=== PATIENT | male | born 1935 | race Caucasian/White ===

== ENCOUNTER 2018-03-17 08:57 | Emergency (ER) | payer MEDICARE, OTHER, SELFPAY ==
[2018-03-17 08:57] VITALS: BP 177/84; PULSE 79; RESP 15; TEMP 35.8; O2SAT 97; BMI 32.1
--- NOTE | 2018-03-17 09:12 | ED.VISSUMM ---
- ER Visit Summary Date of Service: 03/17/18 Chief Complaint: Vague generalized abdominal pain for 24 hours and bright red blood on toilet paper this morning History of Present Illness: The patient is a 82 M who presents from home because of bright red blood on toilet paper. His stool is brown in color. He does give history of hemorrhoids. He states he has never had a colonoscopy. He denies any change in color, caliber, consistency or frequency of his bowel movements. He denies fever, chills night sweats or weight loss. He does complain of vague central generalized abdominal discomfort with no exacerbating, precipitating or alleviating factors. He is status post cholecystectomy. He denies dysuria, frequency, urgency or hematuria. He denies any trauma. He denies any cardiac or respiratory symptoms. He does report bruising easily. He is on no anticoagulant. He states he takes one baby aspirin a day. Please read written note for complete detail. Physical Examination: Vital signs are remarkable for blood pressure 177/84. Temperature is 96.4. Vital signs otherwise are unremarkable. BMI is 32.2. Head is atraumatic normocephalic. Pupils are equal round reactive. Extraocular muscles are intact. TMs are pearly white with landmarks noted. Nares patent with no drainage. Posterior pharynx without erythema or exudate. Uvula is midline. There is no dysphonia or dysphasia. Trachea is midline. There is no stridor with auscultation of the neck. Heart is regular without murmur, gallop or rub. S1 and S2 are normal. Lungs are clear to auscultation with good movement of air bilaterally. Abdomen is remarkable for a diastases of the rectus muscle. Bruises are noted. There is no evidence of inguinal hernia. There is no CVA tenderness. He does complain of abdominal tenderness. There is no guarding or rebound tenderness. Bowel sounds are present and normal. There is no CVA tenderness noted. Neuro exam is nonfocal. Test Results: CBC is unremarkable. BMP is marked for glucose of 115 creatinine 1.34. Creatinine on April 11, 2017 was 1.15. There has been mild elevations of glucose in the past. With a glucose of greater than 140 this may represent new onset diabetes. Emergency Department Course and Treatment: Since he is elderly CBC and BMP were obtained to evaluate his vague abdominal discomfort. The bright red blood is secondary to external hemorrhoids that were noted on digital exam. 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 Prostate was palpable and nontender and slightly enlarged. Treatment Plan: With his primary care physician Dr. KIMBERLYN Palacios for repeat blood work to assess blood sugar and creatinine. He was given appropriate home-going instructions regarding hemorrhoidal bleeding. Disposition: Discharged to home Impression: 1. Bright red blood per rectum secondary to hemorrhoids 2. Abdominal pain of unknown etiology 3. New onset renal insufficiency 4. Hyperglycemia in nondiabetic This note was generated with [employer] dictation software. It may contain incorrect words, spelling, and punctuation that were not noted in review of the chart prior to signing ED Disposition - Plan for ED Patient: Disposition: Home or Assisted Living Chief Complaint: Abd Pain Instructions: ED Abdominal Pain Unkn Cause Male, ED Hemorrhoids, ED Hyperglycemia New Susp Diabetes, ED Insufficiency Renal Referrals: Power Palacios MD [Primary Care Provider] - 5-7 Days Additional Instructions: You will need to make an appointment with Dr. KIMBERLYN Palacios for repeat blood work to assess your blood sugar and kidney function.
[2018-03-17 09:41] LABS: Anion Gap 6 (5-15); BUN 16 mg/dL (7-18); BUN/Creat Ratio 11.9 RATIO (10-20); Calcium,Total 8.8 mg/dL (8.5-10.1); Chloride 108 mmol/L (98-107); Creatinine, Serum 1.34 mg/dL (0.70-1.30); EST Glomerular Filtration Rate 54 mL/min (>60); Est Glom Filt Rate - Afr Amer 66 mL/min (>60); Estimated Creatinine Clearance 43.23 ml/min; Glucose 150 mg/dL (74-106); Potassium 4.2 mmol/L (3.5-5.1); Sodium Level 141 mmol/L (136-145)
[2018-03-17 09:44] LABS: Absolute Lymphocyte Count 1.99 X10^3/ul (0.83-4.51); Basophil# 0.01 X10^3/uL; Basophil% 0.1 % (0-1); Eosinophil# 0.03 X10^3/uL; Eosinophils% 0.4 % (0-5); Hematocrit 47.4 % (40-54); Hemoglobin 15.4 g/dl (13.0-16.5); Lymphocyte # 1.99 X10^3/ul (4.0); Lymphocyte % 29.7 % (19-41); Mean Corp Hgb Conc 32.5 g/gl (32-36); Mean Corpuscular Hgb 29.3 pg (27.0-32.0); Mean Corpuscular Volume 90.3 fL (80-94); Mean Platelet Vol. 10.6 fl (6.2-12.0); Monocyte# 1.67 X10^3/uL; Monocyte% 24.9 % (0-10); Neutrophil # 2.95 X10^3/uL (2.7-7.7); Neutrophil % 44.2 % (47-70); Platelet Count 147 K/mm3 (150-450); RBC Distribution Width CV 13.3 % (11.6-14.6); RBC Distribution Width SD 43.3 fl (35.1-43.9); Red Blood Count 5.25 M/mm3 (4.6-6.2); White Blood Count 6.7 K/mm3 (4.4-11.0)
[2018-03-17 09:45] LABS: Differential Indicated SCAN CRITERIA MET; POSITIVE COUNT NO; POSITIVE DIFFERENTIAL YES; POSITIVE MORPHOLOGY NO
[2018-03-17 10:17] VITALS: BP 140/74; PULSE 71; RESP 16; O2SAT 98
== END 2018-03-17 10:18 | disposition home or self-care (01) ==
PROVIDERS: Emergency Provider Emergency Medicine; Family Provider Family Medicine; PCP Family Medicine
DX: K62.5 Hemorrhage of anus and rectum (principal); K64.4 Residual hemorrhoidal skin tags; R10.84 Generalized abdominal pain; N28.9 Disorder of kidney and ureter, unspecified; R73.9 Hyperglycemia, unspecified; E66.9 Obesity, unspecified; Z68.32 Body mass index [BMI] 32.0-32.9, adult; I10 Essential (primary) hypertension; N40.0 Benign prostatic hyperplasia without lower urinary tract symptoms; Z90.49 Acquired absence of other specified parts of digestive tract; Z79.82 Long term (current) use of aspirin; Z79.899 Other long term (current) drug therapy
CPT/HCPCS: 80048; 85025; 99282; A4216

== ENCOUNTER → 2018-04-11 08:05 | Outpatient (CLI) | payer MEDICARE, OTHER, SELFPAY ==
--- NOTE | 2018-04-11 08:05 | DT_ITS ---
This patient was seen during an EMR downtime April 10, 2018 - April 17, 2018. This patient may have a combination of paper and electronic documentation or all paper documentation. All documentation is viewable within the e-chart portion of [facility] for each patient visit.
[2018-04-16 08:36] LABS: BUN 16 mg/dL (7-18); BUN/Creat Ratio 13.4 RATIO (10-20); Calcium,Total 8.6 mg/dL (8.5-10.1); Cholesterol 109 mg/dL (200); Creatinine, Serum 1.19 mg/dL (0.70-1.30); EST Glomerular Filtration Rate 62 mL/min (>60); Est Glom Filt Rate - Afr Amer 75 mL/min (>60); Glucose 122 mg/dL (74-106); Hemoglobin A1c 7.2 % (4.2-6.3); Sodium Level 136 mmol/L (136-145); Triglycerides 74 mg/dL; Very Low Density Lipoprotein 15 mg/dL (5-40)
[2018-04-16 08:37] LABS: Anion Gap 4 (5-15); Chloride 105 mmol/L (98-107); High Density Lipoprotein 30 mg/dL; Potassium 4.5 mmol/L (3.5-5.1)
== END ==
LOC: MTLAB 04-15 08:22 → MFPLAB 04-15 16:54
PROVIDERS: Family Provider Family Medicine; PCP Family Medicine; Visit Provider Family Medicine
DX: E11.9 Type 2 diabetes mellitus without complications (principal); I10 Essential (primary) hypertension; R97.20 Elevated prostate specific antigen [PSA]
CPT/HCPCS: 36415; 80048; 80061; 83036; 84153

== ENCOUNTER → 2018-04-13 11:35 | Outpatient (CLI) | payer MEDICARE, OTHER, SELFPAY ==
--- NOTE | 2018-04-13 11:35 | DT_ITS ---
This patient was seen during an EMR downtime April 10, 2018 - April 17, 2018. This patient may have a combination of paper and electronic documentation or all paper documentation. All documentation is viewable within the e-chart portion of [facility] for each patient visit.
== END ==
PROVIDERS: Family Provider Family Medicine; PCP Family Medicine; Visit Provider Family Medicine
DX: R97.20 Elevated prostate specific antigen [PSA] (principal)
CPT/HCPCS: 36415; 84153

== ENCOUNTER → 2018-09-11 15:36 | Outpatient (CLI) | payer MEDICARE, OTHER, SELFPAY ==
--- NOTE | 2018-09-11 15:40 | CT_ITS ---
STUDY: CT ABDOMEN AND PELVIS WITH CONTRAST REASON FOR EXAM: Male, 83 years old. Abdominal pain. Left lower quadrant pain. RADIATION DOSAGE (If Supplied By Facility): CTDIvol = ( 19.99 ) mGy, DLP = ( 1308.73 ) mGycm TECHNIQUE: Transaxial images were obtained from the dome of the diaphragm to the symphysis pubis with oral contrast. 100 ml of Isovue 300 contrast was administered. Sagittal and coronal images were reconstructed. Individualized dose optimization techniques were used for this CT. COMPARISON: August 06, 2016. FINDINGS: The visualized lung bases are unremarkable. The visualized portions of the heart are within normal limits. Normal liver. Gallbladder is not visualized and thought absent. Normal spleen. Normal pancreas. Normal bilateral adrenal glands. Normal right kidney. Normal left kidney. Normal visualized ureters. There is a type I hiatal hernia. The distal stomach is unremarkable. Normal small intestine. There is scattered colonic diverticuli without acute inflammatory change. The appendix is visualized and appears normal. There is diffuse atherosclerotic calcification of the abdominal aorta, without a demonstrated aneurysm. Normal inferior vena cava. Normal retroperitoneum. The urinary bladder is well distended. There are 2 bladder calculi measuring centimeters and 0.6 cm, respectively. The prostate is enlarged and invaginates into the bladder floor. The prostate is heterogenous containing calcifications as well as cystic areas. No pelvic lymphadenopathy. No free air or free fluid is seen within the peritoneal cavity. There is a small umbilical hernia containing fat. Normal osseous structures. CT/Abdomen/Pelvis WITH Contrast IMPRESSION: 1. Interval cholecystectomy. 2. Stable hiatal hernia. 3. Diverticuli without acute inflammatory change. 4. Markedly enlarged prostate. 5. There are now 2 bladder calculi when compared to prior study. 6. No other interval change. Electronically Signed: Felice Zaragoza DO at 23:30 EST Tel [phone], Service support ,
[2018-09-11 16:11] LABS: CREATININE FINGERSTICK 1.1 mg/dL (0.70-1.30)
== END ==
PROVIDERS: Family Provider Family Medicine; PCP Family Medicine; Referring Provider Family Medicine; Visit Provider Family Medicine
DX: R10.32 Left lower quadrant pain (principal)
CPT/HCPCS: 74177; Q9967

== ENCOUNTER → 2018-11-09 08:17 | Outpatient (CLI) | payer MEDICARE, OTHER, SELFPAY ==
[2018-11-09 10:19] LABS: Absolute Lymphocyte Count 2.16 X10^3/ul (0.83-4.51); Absolute Neutrophil Count 2.8 X10^3/uL (2.0-7.7); Basophil# 0.01 X10^3/uL; Basophil% 0.2 % (0-1); Eosinophil# 0.02 X10^3/uL; Eosinophils% 0.3 % (0-5); Hematocrit 47.2 % (40-54); Hemoglobin 15.6 g/dl (13.0-16.5); Lymphocyte # 2.16 X10^3/ul (4.0); Lymphocyte % 32.8 % (19-41); Mean Corp Hgb Conc 33.1 g/gl (32-36); Mean Corpuscular Hgb 30.2 pg (27.0-32.0); Mean Corpuscular Volume 91.3 fL (80-94); Mean Platelet Vol. 11.2 fl (6.2-12.0); Monocyte% 21.2 % (0-10); Neutrophil # 2.83 X10^3/uL (2.7-7.7); Neutrophil % 42.9 % (47-70); Platelet Count 154 K/mm3 (150-450); Red Blood Count 5.17 M/mm3 (4.6-6.2); White Blood Count 6.6 K/mm3 (4.4-11.0)
[2018-11-09 10:33] LABS: Anion Gap 8 (5-15); BUN 14 mg/dL (7-18); BUN/Creat Ratio 13.3 RATIO (10-20); Calcium,Total 8.3 mg/dL (8.5-10.1); Chloride 109 mmol/L (98-107); Creatinine, Serum 1.05 mg/dL (0.70-1.30); EST Glomerular Filtration Rate 72 mL/min (>60); Est Glom Filt Rate - Afr Amer 87 mL/min (>60); Glucose 152 mg/dL (74-106); PSA,Total- Diagnostic 5.67 ng/mL (0.0-4.0); Potassium 4.5 mmol/L (3.5-5.1); Sodium Level 143 mmol/L (136-145)
[2018-11-09 10:42] LABS: Hemoglobin A1c 6.9 % (4.2-6.3)
[2018-11-09 10:47] LABS: Differential Indicated SCAN CRITERIA MET; POSITIVE COUNT YES; POSITIVE DIFFERENTIAL NO; POSITIVE MORPHOLOGY YES; Reactive Lymphocyte 1+
[2018-11-10 13:45] LABS: Pathologist Review Reviewed
== END ==
PROVIDERS: Family Provider Family Medicine; PCP Family Medicine; Visit Provider Family Medicine
DX: I10 Essential (primary) hypertension (principal); E11.9 Type 2 diabetes mellitus without complications; R51 Headache; R97.20 Elevated prostate specific antigen [PSA]
CPT/HCPCS: 36415; 80048; 83036; 84153; 85025

== ENCOUNTER 2018-11-22 13:17 | Emergency (ER) | payer MEDICARE, OTHER, SELFPAY ==
[2018-11-22 13:18] VITALS: BP 167/81; PULSE 82; RESP 16; TEMP 36.6; O2SAT 97; BMI 32.8
--- NOTE | 2018-11-22 14:05 | ED.VISSUMM ---
- ER Visit Summary Date of Service: 11/22/18 Chief Complaint: Head injury History of Present Illness: The patient is a 83 M who presents with head injury that occurred this morning. Patient states he slipped and fell while getting out of his truck. Patient hit his head on the running board. Patient denies any loss of consciousness. Patient denies any paresthesias or weakness. Patient states he did feel little lightheaded after the fall. Patient denies any nausea or vomiting. Patient denies any visual changes. Patient takes one baby aspirin per day. Patient is not on any other blood thinners. Physical Examination: Vital signs are stable. Patient is afebrile. Patient is in no acute distress. Oral mucosa is pink and moist. Neck is supple. Trachea is midline. There is no JVD noted. Heart was regular rate and rhythm. Lungs are clear and equal bilateral. Abdomen is soft. Bowel sounds are normal. There is no tenderness. There is no guarding noted. Skin is warm dry. Cranial nerves II through XII are intact. There are no focal motor or sensory deficits noted. Deep tendon reflexes are 2+/4 bilaterally. The remaining physical exam is within normal limits. Emergency Department Course and Treatment: Since the patient has normal neurologic exam, I do not feel patient needs a CT scan of the brain at this time. Patient was given head injury instructions. Patient was instructed to follow-up with his primary care physician in 5-7 days. Patient understood and was agreeable with the plan. All questions were answered. Disposition: Discharge home Impression: Closed head injury This note was generated with [employer] dictation software. It may contain incorrect words, spelling, and punctuation that were not noted in review of the chart prior to signing ED Disposition - Plan for ED Patient: Disposition: Home or Assisted Living Chief Complaint: Head Injury Diagnosis: Head injury due to trauma Instructions: ED Head Injury Closed Referrals: Power Palacios MD [Primary Care Provider] -
[2018-11-22 14:26] VITALS: RESP 18
--- OUTSIDE RECORDS SUMMARY | 2019-01-27 13:32 | XMS RPT_ITS ---
:1935 Author Organization OHIP Care Team Providers Name Role Phone Power Palacios Attending Unavailable Power Palacios Primary Care Unavailable Philip, Power Primary Care Unavailable Wojciech Grimaldo Attending Unavailable Philip, Power Primary Care Unavailable Claudy Schmidt Attending Unavailable Power Palacios Attending Unavailable Power Palacios Primary Care Unavailable Power Palacios Attending Unavailable Power Palacios Primary Care Unavailable Jory June Attending Unavailable Shaylee, Jory Referring Unavailable Power Palacios Primary Care Unavailable PROBLEMS PROBLEMS DATE TYPE CONDITION / CODE ATTENDING STATUS SOURCE 09/11/2018 Unknown R10.32 - Left lower Jory June Active [place] quadrant pain / Community R10.32(ICD-10) Hospital Repository 05/04/2018 Unknown R97.20 - Elevated Power Palacios Active [place] prostate specific Community antigen [PSA] / Hospital R97.20(ICD-10) Repository 05/03/2018 Unknown 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 without Hospital complications / Repository E11.9(ICD-10) 05/03/2018 Unknown I10 - Essential Power Palacios Active [place] (primary) Community hypertension / Hospital I10(ICD-10) Repository 05/03/2018 Unknown 401.1 - Benign Power Palacios essential Community hypertension / Hospital 401.1(ICD-9) Repository 05/03/2018 Unknown 250.00 - Diabetes Power Palacios mellitus without Community mention of Hospital complication, type Repository II or unspecified type, not stated as uncontrolled / 250.00(ICD-9) 05/03/2018 Unknown 790.93 - Elevated Power Palacios prostate specific Community antigen [PSA] / Hospital 790.93(ICD-9) Repository PROCEDURES PROCEDURES No Procedure Records FoundRESULTS RESULTS EMERGENCY DEPARTMENT Observed: 11/22/2018 Status: F Source: [place] SUMMARY 2:21 PM [facility] REPOSITORY [facility] [place] Medical Records Department [address] [place] [address] Emergency Department Summary 11/22/18 1405 MR#: [id number] Acct: [id number] Name: BRAD OCASIO Rep #: [id number] : 1935 83 From: Wojciech Grimaldo DO PCP: Power Palacios MD Status: PRE ER - ER Visit Summary Date of Service: 11/22/18 Chief Complaint: Head injury History of Present Illness: The patient is a 83 M who presents with head injury that occurred this morning. Patient states he slipped and fell while getting out of his truck. Patient hit his head on the running board. Patient denies any loss of consciousness. Patient denies any paresthesias or weakness. Patient states he did feel little lightheaded after the fall. Patient denies any nausea or vomiting. Patient denies any visual changes. Patient takes one baby aspirin per day. Patient is not on any other blood thinners. Physical Examination: Vital signs are stable. Patient is afebrile. Patient is in no acute distress. Oral mucosa is pink and moist. Neck is supple. Trachea is midline. There is no JVD noted. Heart was regular rate and rhythm. Lungs are clear and equal bilateral. Abdomen is soft. Bowel sounds are normal. There is no tenderness. There is no guarding noted. Skin is warm dry. Cranial nerves II through XII are intact. There are no focal motor or sensory deficits noted. Deep tendon reflexes are 2+/4 bilaterally. The remaining physical exam is within normal limits. Emergency Department Course and Treatment: Since the patient has normal neurologic exam, I do not feel patient needs a CT scan of the brain at this time. Patient was given head injury instructions. Patient was instructed to follow-up with his primary care physician in 5-7 days. Patient understood and was agreeable with the plan. All questions were answered. Disposition: Discharge home Impression: Closed head injury This note was generated with Tealet dictation software. It may contain incorrect words, spelling, and punctuation that were not noted in review of the chart prior to signing ED Disposition - Plan for ED Patient: Disposition: Home or Assisted Living Chief Complaint: Head Injury Diagnosis: Head injury due to trauma Instructions: ED Head Injury Closed Referrals: Power Palacios MD [Primary Care Provider] - What to do if you have Problems For any increased pain, shortness of breath, bleeding, nausea or vomiting, chest pain, or any unexpected problems, contact your Primary Care Provider. Call [facility] ([phone]) or report to the closest Emergency Room. Call 911 if necessary. 11/22/18 1421 <Electronically signed by Wojciech Grimaldo DO> Date Wojciech Grimaldo DO Cosigner Signature (If Indicated): Date CC: Power Palacios MD BASIC METABOLIC Collected: 11/09/2018 Status: F Source: [place] PROFILE ([facility]) 8:23 AM [facility] REPOSITORY TYPE CODE TESTS RESULT OUT OF RANGE REFERENCE UNITS LAB L501.0100 74-106 mg/dL High GLU 152 Result Comment: Fasting Glucose result greater than or equal to 126 mg/dL suggests DIABETES MELLITUS per A.D.A. criteria. Please note revised GLUCOSE reference range effective 2017. LAB L501.1000 7-18 mg/dL Normal BUN 14 LAB L501.1100 0.70-1.30 mg/dL Normal CREAT,SERUM 1.05 Result Comment: The validity of the calculated GFR AND GFRAA in patients over 70 years has not been determined. Clinical correlation is essential. LAB L501.1110 >60 mL/min Normal EST GFR 72 Result Comment: Non- GFR Calc LAB L501.1115 >60 mL/min Normal EST GFR - AA 87 Result Comment: GFR Calc LAB L501.1300 10-20 RATIO Normal BUN/CRE 13.3 LAB L501.2200 8.5-10.1 mg/dL Low CA 8.3 LAB L501.5300 136-145 mmol/L NA Normal 143 LAB L501.5600 3.5-5.1 mmol/L K Normal 4.5 LAB L501.5900 98-107 mmol/L High CL 109 LAB L501.6100 21.0-32.0 mmol/L Normal CO2 26.0 LAB L501.6200 5-15 Normal GAP 8 Performed By: #### L500.2500, L501.9940, L501.9985, L100.0100 #### [facility] [address] [place], [address] PSA,TOTAL- DIAGNOSTIC Collected: 11/09/2018 Status: F Source: [place] 8:23 AM [facility] REPOSITORY TYPE CODE TESTS RESULT OUT OF REFERENCE UNITS RANGE LAB L501.9940 0.0-4.0 ng/mL PSA, High DIAGNOSTIC 5.67 Result Comment: This test was performed using the TPSA assay method for the Skipjump chemistry system. Values obtained with different assay methods cannot be used interchangably. When changing PSA assays in the course of monitoring a patient, additional sequential testing should be carried out to confirm baseline values. Performed By: #### L500.2500, L501.9940, L501.9985, L100.0100 #### [facility] [address] [place], [address] HEMOGLOBIN A1C Collected: 11/09/2018 Status: F Source: [place] 8:23 AM [facility] REPOSITORY TYPE CODE TESTS RESULT OUT OF RANGE REFERENCE UNITS LAB L501.9985 4.2-6.3 % High HGB A1C 6.9 Performed By: #### L500.2500, L501.9940, L501.9985, L100.0100 #### [facility] [address] [place], [place], [address] CBC W/DIFF, AUTOMATED Collected: 11/09/2018 Status: C Source: [place] 8:23 AM [facility] REPOSITORY TYPE CODE TESTS RESULT OUT OF RANGE REFERENCE UNITS LAB L100.1000 4.4-11.0 K/mm3 Normal WBC 6.6 LAB L100.1200 4.6-6.2 M/mm3 Normal RBC 5.17 LAB L100.1300 13.0-16.5 g/dl Normal HGB 15.6 LAB L100.1400 40-54 % Normal HCT 47.2 LAB L100.1500 80-94 fL Normal MCV 91.3 LAB L100.1600 27.0-32.0 pg Normal MCH 30.2 LAB L100.1700 32-36 g/gl Normal MCHC 33.1 LAB L100.1810 11.6-14.6 % Normal RDW CV 14.0 LAB L100.1820 35.1-43.9 fl High RDW SD 46.0 LAB L100.1900 150-450 K/mm3 Normal PLT 154 LAB L100.2000 6.2-12.0 fl Normal MPV 11.2 LAB L100.2100 47-70 % Low NEUT% 42.9 LAB L100.2200 19-41 % Normal LY% 32.8 LAB L100.2300 0-10 % High MONO% 21.2 LAB L100.2400 0-5 % Normal EO% 0.3 LAB L100.2500 0-1 % Normal BASO% 0.2 LAB L100.2550 0.0-0.9 % High IM GRAN % 2.600 Result Comment: IG% - Immature Granulocytes (promyelocytes, myelocytes and metamyelocytes) > 1% indicates that a LEFT SHIFT is Present. LAB L100.2620 2.0-7.7 X10 3/uL Normal Absolute Neut 2.8 LAB L100.2720 0.83-4.51 X10 3/ul Normal Absolute Lymph 2.16 LAB L100.4700 1+ Normal REACTIVE LYMPH LAB L100.9900 Normal PATH REV Reviewed Result Comment: AMENDED REPORT 11/10/18 9631 PATH REV previously reported as: May foll Performed By: #### L500.2500, L501.9940, L501.9985, L100.0100 #### [facility] [address] [place], [address] CREATININE FINGERSTICK Collected: 09/11/2018 Status: F Source: [place] 4:01 PM [facility] REPOSITORY TYPE CODE TESTS RESULT OUT OF RANGE REFERENCE UNITS LAB L9100.0210 0.70-1.30 mg/dL Normal CREATININE WB 1.1 Performed By: #### L9100.0200 #### [facility] Point of Care [address] [place] [address] ABDOMEN/PELVIS WITH Observed: 09/11/2018 Status: F Source: [place] CONTRAST 3:40 PM [facility] REPOSITORY [facility] [place] Imaging Services [address] [place] [address] Abdomen/Pelvis WITH Contrast MR#: [id number] Acct: [id number] Name: BRAD OCASIO Rep #: [id number] : 1935 M 83 From: Felice Zaragoza DO PCP: Power Palacios MD Status: REG CLI Study: Abdomen/Pelvis WITH Contrast Date of Exam: 09/11/18 Exam# [id number] Ordering Dr: Jory June MD STUDY: CT ABDOMEN AND PELVIS WITH CONTRAST REASON FOR EXAM: Male, 83 years old. Abdominal pain. Left lower quadrant pain. RADIATION DOSAGE (If Supplied By Facility): CTDIvol = ( 19.99 ) mGy, DLP = ( 1308.73 ) mGycm TECHNIQUE: Transaxial images were obtained from the dome of the diaphragm to the symphysis pubis with oral contrast. 100 ml of Isovue 300 contrast was administered. Sagittal and coronal images were reconstructed. Individualized dose optimization techniques were used for this CT. COMPARISON: August 06, 2016. FINDINGS: The visualized lung bases are unremarkable. The visualized portions of the heart are within normal limits. Normal liver. Gallbladder is not visualized and thought absent. Normal spleen. Normal pancreas. Normal bilateral adrenal glands. Normal right kidney. Normal left kidney. Normal visualized ureters. There is a type I hiatal hernia. The distal stomach is unremarkable. Normal small intestine. There is scattered colonic diverticuli without acute inflammatory change. The appendix is visualized and appears normal. There is diffuse atherosclerotic calcification of the abdominal aorta, without a demonstrated aneurysm. Normal inferior vena cava. Normal retroperitoneum. The urinary bladder is well distended. There are 2 bladder calculi measuring centimeters and 0.6 cm, respectively. The prostate is enlarged and invaginates into the bladder floor. The prostate is heterogenous containing calcifications as well as cystic areas. No pelvic lymphadenopathy. No free air or free fluid is seen within the peritoneal cavity. There is a small umbilical hernia containing fat. Normal osseous structures. CT/Abdomen/Pelvis WITH Contrast IMPRESSION: 1. Interval cholecystectomy. 2. Stable hiatal hernia. 3. Diverticuli without acute inflammatory change. 4. Markedly enlarged prostate. 5. There are now 2 bladder calculi when compared to prior study. 6. No other interval change. Electronically Signed: Felice Zaragoza DO at 23:30 EST Tel [phone], Service support , CC: Jory June MD; Power Palacios MD Director Of Education And Training: Signed DOWNTIME REPORT Observed: 04/27/2018 Status: F Source: [place] 1:50 PM [facility] REPOSITORY [facility] [place] Medical Records Department [address] [place] [address] Downtime Report MR#: [id number] Acct: [id number] Name: BRAD OCASIO Rep #: [id number] : 1935 82 From: Tj Palacios PCP: Power Palacios MD Status: REG CLI This patient was seen during an EMR downtime April 10, 2018 - April 17, 2018. This patient may have a combination of paper and electronic documentation or all paper documentation. All documentation is viewable within the e-chart portion of [email or web address] for each patient visit. DOWNTIME REPORT Observed: 04/27/2018 Status: F Source: [place] 1:35 PM [facility] Medical Records Department [address] [place] [address] Downtime Report MR#: [id number] Acct: [id number] Name: BRAD OCASIO Rep #: [id number] : 1935 82 From: Tj Palacios PCP: Power Palacios MD Status: REG CLI This patient was seen during an EMR downtime April 10, 2018 - April 17, 2018. This patient may have a combination of paper and electronic documentation or all paper documentation. All documentation is viewable within the e-chart portion of [facility] for each patient visit. PSA,TOTAL- DIAGNOSTIC Collected: 04/13/2018 Status: F Source: [place] 11:35 AM [facility] REPOSITORY Order Comment: RESULT(S) PREVIOUSLY REPORTED ON MANUAL REQUISITION DURING DOWNTIME. TYPE CODE TESTS RESULT OUT OF REFERENCE UNITS RANGE LAB L501.9940 0.0-4.0 ng/mL PSA, High DIAGNOSTIC 10.60 Result Comment: This test was performed using the TPSA assay method for the Skipjump chemistry system. Values obtained with different assay methods cannot be used interchangably. When changing PSA assays in the course of monitoring a patient, additional sequential testing should be carried out to confirm baseline values. Performed By: #### L501.9940 #### [facility] [place], [address] BASIC METABOLIC Collected: 04/11/2018 Status: F Source: [place] PROFILE (BMP) 8:10 AM [facility] REPOSITORY Order Comment: Order Date: 10/13/17 Order Info: [id number] - BMP Order Info: [id number] - LIPID Order Info: 0783-1 - PSAD RESULT(S) PREVIOUSLY REPORTED ON MANUAL REQUISITION DURING DOWNTIME. TYPE CODE TESTS RESULT OUT OF RANGE REFERENCE UNITS LAB L501.0100 74-106 mg/dL High GLU 122 Result Comment: Fasting Glucose result from 100 to 125 mg/dL suggests IMPAIRED HOMEOSTASIS per A.D.A. criteria. Please note revised GLUCOSE reference range effective 2017. LAB L501.1000 7-18 mg/dL Normal BUN 16 LAB L501.1100 0.70-1.30 mg/dL Normal CREAT,SERUM 1.19 Result Comment: The validity of the calculated GFR AND GFRAA in patients over 70 years has not been determined. Clinical correlation is essential. LAB L501.1110 >60 mL/min Normal EST GFR 62 LAB L501.1115 >60 mL/min Normal EST GFR - AA 75 LAB L501.1300 10-20 RATIO Normal BUN/CRE 13.4 LAB L501.2200 8.5-10.1 mg/dL Normal CA 8.6 LAB L501.5300 136-145 mmol/L Normal NA 136 LAB L501.5600 3.5-5.1 mmol/L Normal K 4.5 LAB L501.5900 98-107 mmol/L Normal CL 105 LAB L501.6100 21.0-32.0 mmol/L Normal CO2 27.0 LAB L501.6200 5-15 Low GAP 4 Performed By: #### L500.2500, L500.4100, L501.9940, L501.9985 #### [facility] [address] [place], [address] LIPID PROFILE Collected: 04/11/2018 Status: F Source: [place] 8:10 AM [facility] REPOSITORY Order Comment: Order Date: 10/13/17 Order Info: [id number] - BMP Order Info: [id number] - LIPID Order Info: 0783-1 - PSAD RESULT(S) PREVIOUSLY REPORTED ON MANUAL REQUISITION DURING DOWNTIME. TYPE CODE TESTS RESULT OUT OF RANGE REFERENCE UNITS LAB L501.4900 200 mg/dL Normal CHOL 109 Result Comment: <200 mg/dL Desirable 200-240 mg/dL Borderline >240 mg/dL High Risk LAB L501.5000 mg/dL Normal TRIG 74 Result Comment: The drugs N-Acetylcysteine and Metamizole may falsely depress this assay. Serum Triglycerides Reference Interval Normal <150 mg/dL Borderline high 150 - 199 mg/dL High 200 - 499 mg/dL Very High > or = 500 mg/dL LAB L501.6400 mg/dL Low HDL 30 Result Comment: The drugs N-Acetylcysteine and Metamizole may falsely depress this assay. Reference Range HDL <40 mg/dL Low HDL Cholesterol HDL >or= 60 mg/dL High HDL Cholesterol LAB L501.6500 0-130 mg/dL Test Normal not performed LDL LAB L501.6600 5-40 mg/dL 15 Normal VLDL Performed By: #### L500.2500, L500.4100, L501.9940, L501.9985 #### [facility] [address] [place], [address] PSA,TOTAL- DIAGNOSTIC Collected: 04/11/2018 Status: F Source: [place] 8:10 AM [facility] REPOSITORY Order Comment: Order Date: 10/13/17 Order Info: [id number] - BMP Order Info: [id number] - LIPID Order Info: [id number] - PSAD RESULT(S) PREVIOUSLY REPORTED ON MANUAL REQUISITION DURING DOWNTIME. TYPE CODE TESTS RESULT OUT OF REFERENCE UNITS RANGE LAB L501.9940 0.0-4.0 ng/mL PSA, High DIAGNOSTIC 11.80 Result Comment: This test was performed using the TPSA assay method for the Skipjump chemistry system. Values obtained with different assay methods cannot be used interchangably. When changing PSA assays in the course of monitoring a patient, additional sequential testing should be carried out to confirm baseline values. Performed By: #### L500.2500, L500.4100, L501.9940, L501.9985 #### [facility] [place], [address] HEMOGLOBIN A1C Collected: 04/11/2018 Status: F Source: [place] 8:10 AM [facility] REPOSITORY Order Comment: Order Date: 10/13/17 Order Info: 4548-4 - A1C RESULT(S) PREVIOUSLY REPORTED ON MANUAL REQUISITION DURING DOWNTIME. TYPE CODE TESTS RESULT OUT OF RANGE REFERENCE UNITS LAB L501.9985 4.2-6.3 % High HGB A1C 7.2 Performed By: #### L500.2500, L500.4100, L501.9940, L501.9985 #### [facility] [address] [facility] [place], [address] EMERGENCY DEPARTMENT Observed: 03/17/2018 Status: F Source: [place] SUMMARY 9:59 AM [facility] REPOSITORY [facility] Medical Records Department [address] [place] [address] [place] [address] Emergency Department Summary 03/17/1812 MR#: [id number] Acct: [id number] Name: BRAD OCASIO Rep #: [id number] : 1935 82 From: Claudy Schmidt MD PCP: Power Palacios MD Status: REG ER - ER Visit Summary Date of Service: 03/17/18 Chief Complaint: Vague generalized abdominal pain for 24 hours and bright red blood on toilet paper this morning History of Present Illness: The patient is a 82 M who presents from home because of bright red blood on toilet paper. His stool is brown in color. He does give history of hemorrhoids. He states he has never had a colonoscopy. He denies any change in color, caliber, consistency or frequency of his bowel movements. He denies fever, chills night sweats or weight loss. He does complain of vague central generalized abdominal discomfort with no exacerbating, precipitating or alleviating factors. He is status post cholecystectomy. He denies dysuria, frequency, urgency or hematuria. He denies any trauma. He denies any cardiac or respiratory symptoms. He does report bruising easily. He is on no anticoagulant. He states he takes one baby aspirin a day. Please read written note for complete detail. Physical Examination: Vital signs are remarkable for blood pressure 177/84. Temperature is 96.4. Vital signs otherwise are unremarkable. BMI is 32.2. Head is atraumatic normocephalic. Pupils are equal round reactive. Extraocular muscles are intact. TMs are pearly white with landmarks noted. Nares patent with no drainage. Posterior pharynx without erythema or exudate. Uvula is midline. There is no dysphonia or dysphasia. Trachea is midline. There is no stridor with auscultation of the neck. Heart is regular without murmur, gallop or rub. S1 and S2 are normal. Lungs are clear to auscultation with good movement of air bilaterally. Abdomen is remarkable for a diastases of the rectus muscle. Bruises are noted. There is no evidence of inguinal hernia. There is no CVA tenderness. He does complain of abdominal tenderness. There is no guarding or rebound tenderness. Bowel sounds are present and normal. There is no CVA tenderness noted. Neuro exam is nonfocal. Test Results: CBC is unremarkable. BMP is marked for glucose of 115 creatinine 1.34. Creatinine on April 11, 2017 was 1.15. There has been mild elevations of glucose in the past. With a glucose of greater than 140 this may represent new onset diabetes. Emergency Department Course and Treatment: Since he is elderly CBC and BMP were obtained to evaluate his vague abdominal discomfort. The bright red blood is secondary to external hemorrhoids that were noted on digital exam. 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 Prostate was palpable and nontender and slightly enlarged. Treatment Plan: With his primary care physician Dr. KIMBERLYN Palacios for repeat blood work to assess blood sugar and creatinine. He was given appropriate home- going instructions regarding hemorrhoidal bleeding. Disposition: Discharged to home Impression: 1. Bright red blood per rectum secondary to hemorrhoids 2. Abdominal pain of unknown etiology 3. New onset renal insufficiency 4. Hyperglycemia in nondiabetic This note was generated with Tealet dictation software. It may contain incorrect words, spelling, and punctuation that were not noted in review of the chart prior to signing ED Disposition - Plan for ED Patient: Disposition: Home or Assisted Living Chief Complaint: Abd Pain Instructions: ED Abdominal Pain Unkn Cause Male, ED Hemorrhoids, ED Hyperglycemia New Susp Diabetes, ED Insufficiency Renal Referrals: Power Palacios MD [Primary Care Provider] - 5-7 Days Additional Instructions: You will need to make an appointment with Dr. KIMBERLYN Palacios for repeat blood work to assess your blood sugar and kidney function. What to do if you have Problems For any increased pain, shortness of breath, bleeding, nausea or vomiting, chest pain, or any unexpected problems, contact your Primary Care Provider. Call [facility] ([phone]) or report to the closest Emergency Room. Call 911 if necessary. 03/17/18 0959 <Electronically signed by Claudy Schmidt MD> Date Claudy Schmidt MD Cosigner Signature (If Indicated): Date CC: Power Palacios MD BASIC METABOLIC Collected: 03/17/2018 Status: F Source: [place] PROFILE ([place]MP) 9:20 AM [facility] REPOSITORY TYPE CODE TESTS RESULT OUT OF RANGE REFERENCE UNITS LAB L501.0100 74-106 mg/dL High GLU 150 Result Comment: Fasting Glucose result greater than or equal to 126 mg/dL suggests DIABETES MELLITUS per A.D.A. criteria. Please note revised GLUCOSE reference range effective 2017. LAB L501.1000 7-18 mg/dL Normal BUN 16 LAB L501.1100 0.70-1.30 mg/dL High CREAT,SERUM 1.34 Result Comment: The validity of the calculated GFR AND GFRAA in patients over 70 years has not been determined. Clinical correlation is essential. LAB L501.1110 >60 mL/min Low EST GFR 54 Result Comment: Non- GFR Calc LAB L501.1115 >60 mL/min Normal EST GFR - AA 66 Result Comment: GFR Calc LAB L501.1255 ml/min Normal Estimated CRCL 43.23 LAB L501.1300 10-20 RATIO Normal BUN/CRE 11.9 LAB L501.2200 8.5-10 mg/dL Normal .1 CA 8.8 LAB L501.5300 136-14 mmol/L Normal 5 NA 141 LAB L501.5600 3.5-5. mmol/L Normal 1 K 4.2 LAB L501.5900 98-107 mmol/L High CL 108 LAB L501.6100 21.0-3 mmol/L Normal 2.0 CO2 27.0 LAB L501.6200 5-15 Normal GAP 6 Performed By: #### L500.2500 #### [facility] [address] [place], [address] CBC W/DIFF, AUTOMATED Collected: 03/17/2018 Status: F Source: [place] 9:20 AM [facility] REPOSITORY TYPE CODE TESTS RESULT OUT OF RANGE REFERENCE UNITS LAB L100.1000 4.4-11.0 K/mm3 Normal WBC 6.7 LAB L100.1200 4.6-6.2 M/mm3 Normal RBC 5.25 LAB L100.1300 13.0-16.5 g/dl Normal HGB 15.4 LAB L100.1400 40-54 % Normal HCT 47.4 LAB L100.1500 80-94 fL Normal MCV 90.3 LAB L100.1600 27.0-32.0 pg Normal MCH 29.3 LAB L100.1700 32-36 g/gl Normal MCHC 32.5 LAB L100.1810 11.6-14.6 % Normal RDW CV 13.3 LAB L100.1820 35.1-43.9 fl Normal RDW SD 43.3 LAB L100.1900 150-450 K/mm3 Low PLT 147 LAB L100.2000 6.2-12.0 fl Normal MPV 10.6 LAB L100.2100 47-70 % Low NEUT% 44.2 LAB L100.2200 19-41 % Normal LY% 29.7 LAB L100.2300 0-10 % High MONO% 24.9 LAB L100.2400 0-5 % Normal EO% 0.4 LAB L100.2500 0-1 % Normal BASO% 0.1 LAB L100.2550 0.0-0.9 % Normal IM GRAN % 0.700 Result Comment: IG% - Immature Granulocytes (promyelocytes, myelocytes and metamyelocytes) > 1% indicates that a LEFT SHIFT is Present. LAB L100.2620 2.0-7.7 X10 3/uL Normal Absolute Neut 3.0 LAB L100.2720 0.83-4.51 X10 3/ul Normal Absolute Lymph 1.99 Performed By: #### L100.0100 #### [facility] [address] [facility] [facility]. [place], [place], [id number] ALLERGIES ALLERGIES DATE TYPE / CODE NAME / CODE REACTION SEVERITY SOURCE 11/22/2018 Drug No Known Unknown [facility] [place] Allergy/4160 Allergies/F00 Hospital 62193(SNOMED 1926902(RXNOR Repository CT) M) ENCOUNTERS ENCOUNTERS ADMIT/DISCHARGE ACCOUNT ADMITTING ENCOUNTER LOCATION SOURCE NUMBER CLASS 11/22/2018/ [id number] Emergency [place] 9 9 [facility] ing:ED Repository 11/09/2018 [id number] Ambulatory [place] 0 [facility] ing:MFPLAB Repository 09/11/2018 [id number] Ambulatory [place] 9 [facility] ing:CT Repository 04/13/2018 [id number] Ambulatory [place] 8 [facility] ing:MFPLAB Repository 04/11/2018 [id number] Ambulatory [place] 4 [facility] ing:MFPLAB Repository 03/17/2018/ [id number] Emergency [place] 8 0 [facility] ing:ED Repository PAYERS PAYERS ENCOUNTER GUARANTOR PAYER SUBSCRIBER SOURCE 11/22/2018 BRAD Calero Primary BRAD Enciso [id number] Insurance:MEDICARE SPURLOCKDOB: Community MAIN PART A [id number] [place] Number: Repository [id number]: [phone] [id number] [phone] (HP) Date:2018-11-22 11/22/2018 Secondary BRAD Calero [place] Insurance:BANKERS SPURLOCKDOB: [facility] [id number] Hospital Number: Repository [id number] e Date:[id number] [address]WN: 11/22/2018 Tertiary NOT GIVENUNK [place] Insurance:SELF PAY [facility] Number: Effective Repository Date:2018-11-22 11/09/2018 BRAD Calero Primary BRAD Enciso [id number] Insurance:MEDICARE SPURLOCKDOB: Community MAIN PART A [id number] [place] Number: Repository [id number]: 330 [id number] [phone] () Date:2018-11-09 11/09/2018 Secondary BRAD Calero [place] Insurance:BANKERS SPURLOCKDOB: Community [facility] [id number] Hospital Number: Repository [id number] e Date:[id number], [place] [address]BF: 11/09/2018 Tertiary NOT GIVENUNK [place] Insurance:SELF PAY [facility] Number: Effective Repository Date:2018-11-09 09/11/2018 BRAD Calero Primary BRAD Enciso [id number] Insurance:MEDICARE SPURLOCKDOB: Community MAIN PART A [facility] [id number] [place] Number: Repository [id number]: 330 [id number] [phone] (HP) Date:2018-05-09 09/11/2018 Secondary BRAD Calero [place] Insurance:MUTUAL OF SPURLOCKDOB: [facility] Number: [id number] Hospital [id number] Repository Date:5566-56-89TLASLM [place], [place] [address]UY: 09/11/2018 Tertiary NOT GIVENUNK [place] Insurance:SELF PAY [facility] Number: Effective Repository Date:2018-05-09 04/13/2018 Brad Calero Primary Brad Calero [place] [id number] Insurance:MEDICARE SpurlockDOB: Community Main PART A [facility] [id number] Number[place] Repository [id number]: [phone] [id number] [phone] () Date:2018-04-13 04/13/2018 Secondary Brad Calero [place] Insurance:MUTUAL OF SpurlockDOB: [facility] Number: [id number] Hospital [id number] Repository Date:1808-92-54HVLPGO [place], [place] [address]JI: 04/13/2018 Tertiary NOT GIVENUNK [place] Insurance:SELF PAY [facility] Number: Effective Repository Date:2018-04-13 04/11/2018 Brad Calero Primary Brad Ramososter [id number] Insurance:MEDICARE SpurlockDOB: Community Main PART A [facility] [id number] Number[place] Repository [id number]: [phone] [id number] [phone] (HP) Date:2018-04-11 04/11/2018 Secondary Brad Calero [place] Insurance:MUTUAL OF SpurlockDOB: [facility] Number: [id number] Hospital [id number] Repository Date:7106-89-33QEPNLN OF [place], [place] [address]FX: 04/11/2018 Tertiary NOT GIVENUNK [place] Insurance:SELF PAY [facility] Number: Effective Repository Date:2018-04-11 03/17/2018 Brad Calero Primary Brad Enciso [id number] Insurance:MEDICARE SpurlockDOB: Community Main PART A [place] [id number] [facility] [place] Number: Repository [id number]: [id number] [phone] Date:2018-03-17 () 03/17/2018 Secondary Brad H [place] Insurance:MUTUAL OF [facility]: [facility] Number: [id number] Hospital [id number] Repository Date:[id number] [facility] [place] [address]ZI: 03/17/2018 Tertiary NOT GIVENUNK [place] Insurance:SELF PAY [facility] Number: Effective Repository Date:2018-03-17
== END 2018-11-22 14:39 | disposition home or self-care (01) ==
LOC: ED 14:36
PROVIDERS: Emergency Provider Emergency Medicine; Family Provider Family Medicine; PCP Family Medicine
DX: S09.90XA Unspecified injury of head, initial encounter (principal); R42 Dizziness and giddiness; W01.198A Fall on same level from slipping, tripping and stumbling with subsequent striking against other object, initial encounter; Y93.9 Activity, unspecified; Y92.9 Unspecified place or not applicable; I10 Essential (primary) hypertension; Z79.82 Long term (current) use of aspirin; Z79.899 Other long term (current) drug therapy
CPT/HCPCS: 99282

== ENCOUNTER → 2019-02-26 | Outpatient (CLI) | payer MEDICARE, OTHER, SELFPAY ==
--- NOTE | 2019-02-26 11:04 | RAD_ITS ---
STUDY: X-RAY - ABDOMEN/PELVIS REASON FOR EXAM: Male, 83 years old. Lower abdomen pain since yesterday. TECHNIQUE: Supine and upright frontal projections encompassing the abdomen and pelvis. COMPARISON: None. FINDINGS: Normal visualized lung bases. There is an unremarkable bowel gas pattern. Air and stool are identified within the rectum. There is no demonstrated free abdominal air. There is no plain film evident intra-abdominal mass or mass effect. There are moderate to severe diffuse spinal degenerative changes. Calcified right paramedian pelvic phleboliths versus urinary bladder calculi are identified. A 9 mm sclerotic focus just superior to the right superior acetabulum may represent a bone island. However, recommend correlation for primary carcinoma as this may be a small/early metastasis. 5 mild bilateral hip osteoarthritis. RAD/Abd Inc Decub and/or Erect IMPRESSION: No plain film evidence of obstruction or free air. No evident intra-abdominal mass or mass effect. Other incidental findings, please see above. Electronically Signed: Vamshi Villafana MD at 11:33 EDT , Service support ,
[2019-02-26 12:56] LABS: Basophil# 0.01 X10^3/uL; Basophil% 0.1 % (0-1); Eosinophil# 0.05 X10^3/uL; Eosinophils% 0.7 % (0-5); Hematocrit 45.8 % (40-54); Hemoglobin 15.1 g/dl (13.0-16.5); Lymphocyte % 26.6 % (19-41); Mean Corpuscular Hgb 29.7 pg (27.0-32.0); Mean Platelet Vol. 10.9 fl (6.2-12.0); Monocyte# 2.15 X10^3/uL; Monocyte% 30.2 % (0-10); Neutrophil # 2.97 X10^3/uL (2.7-7.7); Neutrophil % 41.7 % (47-70); Platelet Count 136 K/mm3 (150-450); RBC Distribution Width SD 45.8 fl (35.1-43.9); Red Blood Count 5.09 M/mm3 (4.6-6.2); White Blood Count 7.1 K/mm3 (4.4-11.0)
[2019-02-26 12:58] LABS: Differential Indicated SCAN CRITERIA MET; POSITIVE COUNT NO; POSITIVE DIFFERENTIAL YES; POSITIVE MORPHOLOGY NO
[2019-02-26 13:09] LABS: ALB/GLOB Ratio 1.4 RATIO (0.9-2.4); AST(SGOT) 19 U/L (15-37); Alanine Aminotransfer ALT/SGPT 27 U/L (16-61); Albumin, Serum 4.1 g/dL (3.2-5.0); Alkaline Phosphatase 90 U/L (45-117); Anion Gap 1 (5-15); BUN 19 mg/dL (7-18); Calcium,Total 8.7 mg/dL (8.5-10.1); Chloride 109 mmol/L (98-107); Creatinine, Serum 1.12 mg/dL (0.70-1.30); EST Glomerular Filtration Rate 67 mL/min (>60); Est Glom Filt Rate - Afr Amer 81 mL/min (>60); Glucose 139 mg/dL (74-106); Potassium 4.4 mmol/L (3.5-5.1); Protein, Total 7.1 g/dL (6.4-8.2); Sodium Level 139 mmol/L (136-145)
== END | disposition home or self-care (01) ==
LOC: MTLAB 11:03
PROVIDERS: Family Provider Family Medicine; PCP Family Medicine; Referring Provider Family Medicine; Visit Provider Family Medicine
DX: R10.30 Lower abdominal pain, unspecified (principal)
CPT/HCPCS: 74019; 80053; 85025

== ENCOUNTER → 2019-07-05 | Outpatient (CLI) | payer MEDICARE, OTHER, SELFPAY ==
--- NOTE | 2019-07-05 10:56 | RAD_ITS ---
STUDY: X-RAY - RIGHT ANKLE REASON FOR EXAM: Male, 83 years old. Right ankle pain. TECHNIQUE: 3 view(s) of the ankle. COMPARISON: None. FINDINGS: Normal visualized distal tibia and fibula. Normal medial and lateral malleoli. Normal tibiotalar articulation and ankle mortise. Moderate plantar spur, otherwise normal visualized talus and calcaneus. The visualized subtalar, talonavicular, calcaneocuboid and tarsal articulations are normal. There is no demonstrated fracture. The soft tissue structures are unremarkable. RAD/Ankle min 3 Views IMPRESSION: Normal x-ray examination of the ankle. Electronically Signed: Deepak Mckeon MD at 22:10 EDT , Service support ,
== END | disposition home or self-care (01) ==
LOC: MTRAD 10:53
PROVIDERS: Family Provider Family Medicine; PCP Family Medicine; Referring Provider Family Medicine; Visit Provider Family Medicine
DX: S99.911D Unspecified injury of right ankle, subsequent encounter (principal)
CPT/HCPCS: 73610

== ENCOUNTER → 2019-07-11 | Outpatient (CLI) | payer MEDICARE, OTHER, SELFPAY ==
[2019-07-11 10:44] LABS: Anion Gap 5 (5-15); BUN 15 mg/dL (7-18); BUN/Creat Ratio 14.2 RATIO (10-20); Calcium,Total 8.6 mg/dL (8.5-10.1); Chloride 110 mmol/L (98-107); Creatinine, Serum 1.06 mg/dL (0.70-1.30); EST Glomerular Filtration Rate 71 mL/min (>60); Est Glom Filt Rate - Afr Amer 86 mL/min (>60); Glucose 102 mg/dL (74-106); Hemoglobin A1c 6.2 % (4.2-6.3); PSA,Total- Diagnostic 4.47 ng/mL (0.0-4.0); Potassium 4.2 mmol/L (3.5-5.1); Sodium Level 141 mmol/L (136-145)
== END | disposition home or self-care (01) ==
LOC: MFPLAB 08:17
PROVIDERS: Family Provider Family Medicine; PCP Family Medicine; Referring Provider Family Medicine; Visit Provider Family Medicine
DX: E11.9 Type 2 diabetes mellitus without complications (principal); R97.20 Elevated prostate specific antigen [PSA]
CPT/HCPCS: 36415; 80048; 83036; 84153

== ENCOUNTER 2019-11-08 14:04 | Outpatient (RCR) | payer MEDICARE, OTHER, SELFPAY | END 2019-12-07 23:59 | LOC: WC 14:04 | PROVIDERS: Family Provider Family Medicine; PCP Family Medicine; Visit Provider Nurse Practitioner Family | DX: Z09 Encounter for follow-up examination after completed treatment for conditions other than malignant neoplasm (principal) ==

== ENCOUNTER → 2019-12-03 11:54 | Outpatient (CLI) | payer MEDICARE, OTHER, SELFPAY ==
--- NOTE | 2019-12-03 11:58 | RAD_ITS ---
STUDY: X-RAY - RIGHT ANKLE REASON FOR EXAM: Male, 84 years old. NON HEALING WOUND WITH EDEMA AND REDNESS TO JUST SUPERIOR TO LATERAL MALLEOLUS, SCRAPED ON PIECE OF WOOD x1 MONTH AGO, TINGLING SENSATION TO AREA TECHNIQUE: 3 view(s) of the ankle. COMPARISON: Previous study of 07/05/2019 FINDINGS: Normal visualized distal tibia and fibula. Normal medial and lateral malleoli. Normal tibiotalar articulation and ankle mortise. There is a plantar aspect calcaneal spur. The visualized subtalar, talonavicular, calcaneocuboid and tarsal articulations are normal. There is soft tissue swelling anterior to the ankle region. RAD/Ankle min 3 Views IMPRESSION: Plantar aspect calcaneal spur. Soft tissue swelling anterior to the ankle region. There is no evidence of soft tissue gas or radiopaque foreign body. Electronically Signed: Sang Carbajal MD at 23:19 EST , Service support ,
== END ==
PROVIDERS: PCP Family Medicine; Referring Provider Family Medicine; Visit Provider Family Medicine
DX: M25.571 Pain in right ankle and joints of right foot (principal)
CPT/HCPCS: 73610

== ENCOUNTER → 2019-12-12 08:42 | Outpatient (CLI) | payer MEDICARE, OTHER, SELFPAY ==
--- NOTE | 2019-12-12 08:57 | US_ITS ---
STUDY: SUPERFICIAL ULTRASOUND - RIGHT ANKLE REASON FOR EXAM: Male, 84 years old. REDNESS/ DISCOLORED AREA ON LAT ANKLE TECHNIQUE: A superficial ultrasound was performed with real-time and static todd-scale imaging. COMPARISON: None. FINDINGS: There is subcutaneous edema present. No discrete solid or cystic lesions are visualized. US/Ext Non Vasc Limited/Soft Tiss IMPRESSION: Subcutaneous edema. Electronically Signed: Soo Qureshi MD at 23:11 EST Tel , Service support ,
== END ==
PROVIDERS: PCP Family Medicine; Referring Provider Family Medicine; Visit Provider Family Medicine
DX: S99.911D Unspecified injury of right ankle, subsequent encounter (principal); X58.XXXD Exposure to other specified factors, subsequent encounter
CPT/HCPCS: 76882

== ENCOUNTER 2020-04-02 05:34 | Day surgery (SDC) | payer MEDICARE, OTHER, SELFPAY ==
[2020-03-20 08:38] VITALS: BMI 31.3
--- NOTE | 2020-03-27 10:39 | EKG12_ITS ---
Test Reason : PRE OP Blood Pressure : / mmHG Vent. Rate : 068 BPM Atrial Rate : 068 BPM P-R Int : 180 ms QRS Dur : 090 ms QT Int : 360 ms P-R-T Axes : 017 -21 009 degrees QTc Int : 382 ms Normal sinus rhythm Normal ECG Confirmed by MAGDALENA KIM, JAZMIN ([id number]), magazine editor DAYANA PUENTE ([id number]) on 04/01/2020 2:58:57 PM Referred By: Ac Sales Confirmed By:JAZMIN NICHOLS MD
[2020-03-27 11:18] LABS: Hematocrit 47.6 % (40-54); Hemoglobin 15.7 g/dL (13.0-16.5); Mean Corpuscular Volume 90.8 fL (80-94); Mean Platelet Vol. 11.4 fl (6.2-12.0); Platelet Count 129 K/mm3 (150-450); RBC Distribution Width CV 13.5 % (11.6-14.6); RBC Distribution Width SD 44.4 fl (35.1-43.9); Red Blood Count 5.24 M/mm3 (4.6-6.2); White Blood Count 5.3 K/mm3 (4.4-11.0)
[2020-03-27 11:51] LABS: Anion Gap 2 (5-15); BUN 19 mg/dL (7-18); Calcium,Total 9.2 mg/dL (8.5-10.1); Chloride 106 mmol/L (98-107); Creatinine, Serum 1.19 mg/dL (0.70-1.30); EST Glomerular Filtration Rate 62 mL/min (>60); Est Glom Filt Rate - Afr Amer 75 mL/min (>60); Glucose 108 mg/dL (74-106); Potassium 4.4 mmol/L (3.5-5.1); Sodium Level 140 mmol/L (136-145)
[2020-04-02] VITALS (8 sets, daily range): BP systolic 116–141; BP diastolic 65–75; PULSE 63–78; RESP 16–17; TEMP 36.7–37.2; O2SAT 92–98; BMI 29.8
--- NOTE | 2020-04-02 06:19 | HP.PCM_ITS ---
Problem List (1) Bilateral inguinal hernia Status: Acute Qualifiers: Obstruction and gangrene presence: without obstruction or gangrene Recurrence: non-recurrent Qualified Code(s): K40.20 - Bilateral inguinal hernia, without obstruction or gangrene, not specified as recurrent History and Physical Date of Admission: 04/02/20 Intake Visit Reasons: LEFT INGUINAL HERNIA Chief Complaint: left inguinal hernia Salesperson Hearing Aids Required: No Accompanied by: Son Is patient in pain?: No Allergies No Known Allergies Allergy (Verified 03/20/20 08:39) Medications Aspirin [Aspirin, Baby] 81 mg PO DAILY@0800 03/17/18 [History Confirmed 03/20/20] Lisinopril [Zestril] 10 mg PO DAILY 03/17/18 [History Confirmed 03/20/20] dutasteride 0.5 mg capsule 0.5 mg PO DAILY 03/20/20 [History Confirmed 03/20/20] multivitamin 1 cap PO DAILY 03/20/20 [History] [facility] Medical History (Updated 03/20/20 @ 08:[address] Ac Sales MD) Bilateral inguinal hernia (Acute) BPH (benign prostatic hypertrophy) (Acute) Dehydration (Acute) Sinus tachycardia (Acute) Orthostasis (Acute) Hypertension (Chronic) Syncope (Acute) Arthritis (Acute) Hemorrhoids (Acute) Left inguinal hernia (Acute) Surgical History (Updated 03/20/20 @ 08:35 by Vanna Marin) History of laparoscopic cholecystectomy (Acute) Family History (Updated 03/20/20 @ 08:09 by Vanna Marin) Father Hypertension Social History (Updated 03/20/20 @ 09:[address] Ac Sales MD) Smoking Status: Former smoker alcohol intake: never substance use type: does not use HPI HPI HPI: BRAD OCASIO, is a 84 M who presents to the office today for surgical consultation regarding a suspected left inguinal hernia. The patient is referred by Dr. Power Perez and a written copy of my surgical consult recommendations will return to him. The patient was working starting a log splitter. He was at an odd angle. He experienced a sharp discomfort in the left groin. He is continued to have off and on discomfort in that groin. It is better when he lies supine. It is of note that he has not noticed anything on the right groin. He is accompanied with his son today. HPI HPI HPI: BRAD OCASIO, is a 84 M who presents to the office today for ROS General General: No weight change, appetite, fatigue, colon cancer, breast cancer or weakness HEENT HEENT: No difficulty swallowing, eye injury, eye surgery, swollen glands or hoarseness Endo Endocrine: No thyroid disease, diabetes mellitus, thyroid cancer, Hair loss, heat intolerance or cold intolerance Skin Skin: No rash or changing moles Breast Breast: No left breast lump, right breast lump, nipple discharge, breast pain, abnormal mammogram, abnormal US or breast enlargement Musc Musculoskeletal: Yes arthritis; no back problems, rheumatoid arthritis, gout or joint pain Cardio Cardiovascular: Yes high blood pressure; no murmur, pacemaker, heart disease, atrial fibrillation, heart attack, heart stent, palpitations, shortness of breat with exertion or chest pain Psych Psychiatric: No depression, anxiety or hearing voices Resp Respiratory: No shortness of breath, No sleep apnea, No cough, No COPD, No asthma, No emphysema, No wheezing Gastro Gastrointestinal: No abdominal pain, No nausea or vomiting, No diarrhea, No constipation, No blood in stool, No acid reflux, Yes hemorrhoids, No ulcers, No gallbladder problem, No black,tarry stools [place] Hematologic: Yes blood thinners, No blood disorders, No bleeding, No anemia, No blood clots Neuro Neurologic: No system reviewed and no additional complaints, except as docu, No as per HPI, No abnormal walking, No abnormal hearing, No abnormal movements, No abnormal speech, No behavioral changes, No burning sensations, No confusion, No seizure-like activity, No unsteadiness, No dizziness, No localized weakness, No frequent falls, No headache(s), No lack of coordination, No loss of vision, No memory loss, No numbness, No other visual disturbances, No radiating pain, No restless legs, No sensory deficit, No fainting, No tingling, No tremor(s), No weakness, No other Exam Const General: cooperative, healthy appearing, comfortable, no acute distress Nutritional Appearance: obese Orientation: alert, awake [facility] Head: normal to inspection Eyes General: appearance normal, both eyes and all related structures Chest Chest palpation & inspection: normal inspection of the chest Breast Palpation: No nipple discharge Resp Effort & Inspection: normal respiratory effort Auscultation: clear to auscultation bilaterally Cardio Rate: regular rate Rhythm: regular rhythm Heart Sounds: no murmurs GI Palpation: soft Other: Rotund, diastases recti noted, cannot palpate internal organs, no tenderness, Other: Testicles are descended. Reducible bilateral inguinal hernias noted actually slightly larger on the right than on the left. No testicular mass. No current tenderness. Musc Cervical Spine: normal cervical lordosis Neuro General: alert, awake Cognition: normal cognition Extrem General: calf tenderness Other: Hyperpigmentation bilateral ankles consistent with mild venous stasis Psych Affect: normal affect Assessment & Plan Problems 1. Non-recurrent bilateral inguinal hernia without obstruction or gangrene K40.20 Plan The patient actually has bilateral inguinal hernias. The right side slightly more prominent than his symptomatic left side. He is previously had a laparoscopic cholecystectomy and fared well. I am proposing for him a laparoscopic bilateral inguinal hernia repair with mesh. I have discussed the technique, benefit, risk, alternatives. He and his son have had an opportunity to ask and have questions answered. Additional discussion was had regarding the current Covid-19 pandemic. We discussed the finding that hospital administration suggest that we have a low incidence locally. He has had an opportunity to ask and have questions answered. As he is intermittently painful still in the left groin he elects to schedule and proceed for definitive bilateral repair. He is not able to palpate the hernias himself placing him at increased future risk of not being able to notice the problem. I appreciate the opportunity of assisting with her surgical care Cc: Dr. Power Sales M.D., F.A.C.S. Coding Level of Care Code 57598 Diagnoses Non-recurrent bilateral inguinal hernia without obstruction or gangrene K40.20 ??Obstruction and gangrene presence: without obstruction or gangrene ??Recurrence: non-recurrent I have re-examined the patient. There are no clinical changes since date of exam. Procedure Criteria Procedure Type: Elective Procedure Essential: No COVID Risk Discussion: The surgeon/proceduralist and patient have discussed in detail the risk of exposure to and/or potential harm posed by the COVID-19 virus with having a surgery/procedure at this time versus the risk of delaying the surgery/procedure. It is not possible to know either the risk of delaying the surgery or procedure or chance of getting an infection with perfect accuracy, but a joint decision was made between the patient and the surgeon/proceduralist to proceed at this time with the scheduled surgery/procedure as indicated on the consent form.
[2020-04-02] MEDS: Lactated Ringers 1,000 ML 100 ML IV (06:37)
--- NOTE | 2020-04-02 06:58 | DCINST_ITS ---
Discharge Diet: Light diet - advance as tolerated - if you have questions about your diet instructions, please talk to you doctor. Discharge Activity: May Not Drive - for 1 week or while taking narcotic pain medicine. May shower in (days): 1 Lifting Restrictions: 10 pounds Call your doctor if your incision/area has: Continuous Slow Oozing, Sudden Increased Bleeding, Increased Pain/ Swelling, Increased Redness, Foul Smelling Discharge Call your doctor if you observe: Fever of 101 or Higher Suture Line Care: Avoid Pulling/Pushing, Avoid Pinching/Bending Additional Dressing/Incision Instructions:: Change or remove dressing in 3 days. Leave steri-strips in place for 1 week. Please take a daily fiber supplementation starting today to help avoid constipation Additional Instructions: Your post operative appointment at 10 days may be performed virtually if you request. Upon scheduling your appointment please notify the pharmacy scheduler as to how you want to proceed. Allergies/Adverse Reactions: Allergies No Known Allergies Allergy (Verified 04/02/20 06:03) Medications to take at Discharge Aspirin [Aspirin, Baby] 81 mg PO DAILY@0800 03/17/18 Lisinopril [Zestril] 10 mg PO DAILY 03/17/18 dutasteride 0.5 mg capsule 0.5 mg PO DAILY 03/20/20 multivitamin 1 cap PO DAILY 03/20/20 Hydrocodone Bitart/Apap 5-325 [[place] 5MG-325MG] 1 tablet PO Q6H PRN PRN 2 Days #6 tablet 04/02/20 The following prescriptions were given: Hydrocodone Bitart/Apap 5-325 [[place] 5MG-325MG] 1 tablet PO Q6H PRN PRN 2 Days #6 tablet PRN Reason: Pain Transmission Status: Sent to [facility] Primary Care Physician: Power Perez MD [Primary Care Provider] - Test Results: Test results from this visit will be discussed in further detail at your follow- up appointment, if applicable. Please Follow Up With: Ac Sales MD - [phone] When: Call to make an appointment to be seen in about 10 days.
[2020-04-02] MEDS: Cefazolin 2 GM in 0.9% Normal Saline 100 ML IV (07:17)
[2020-04-02] MEDS: Bupivacaine Mpf 0.5% 30 ML VIAL (08:47)
--- NOTE | 2020-04-02 08:48 | PCM.OPRPT ---
Problem List (1) Bilateral inguinal hernia Status: Acute Qualifiers: Obstruction and gangrene presence: without obstruction or gangrene Recurrence: non-recurrent Qualified Code(s): K40.20 - Bilateral inguinal hernia, without obstruction or gangrene, not specified as recurrent Report of Operation Date of Procedure: 04/02/20 Pre-Operative Diagnosis: Bilateral indirect inguinal hernias Post-Operative Diagnosis: Same Surgery/Procedure Performed:: Laparoscopic bilateral inguinal herniorrhaphy. Left Bard 3D max large lot number [id number]. Reference #[id number]. Expiry date 08/04/2024. Right Bard large 3D max. Lot number [id number]. Reference #[id number]. Expiry date 11/03/2024. Secure strap 25. Lot number [id number] expiry date 10/2021 Description of Surgical Findings:: Timeout and informed consent was obtained. 84 [place] was taken the operating placed by the table underwent general endotracheal intubation anesthesia. Ancef 2 g given intravenously preoperatively. The abdomen sterilely prepped draped. 0.5% Marcaine was used as local anesthetic. Throughout the procedure total 30 cc was used. Skin sites were pre-anesthetized. A vertical infraumbilical incision was created sharp dissection carried down through the subcutaneous tissue the fascia was incised. Holding sutures of 0 Vicryl placed. Varies needle inserted. Saline drop test performed. 10 mm trocar was inserted. 10-minute laparoscope inserted. No concern trocar injuries. The patient has a very lax abdominal wall that is very bulbous. This made visualization of the groins challenging because the groins moved toward more of the anterior abdominal wall. 5 mm trochars were placed in the right and left lower quadrants. Ilioinguinal nerve blocks were performed with Marcaine under laparoscopic visualization. The peritoneum superior lateral to the right internal ring was incised carried medially tediously the peritoneum was dissected free until the direct space indirect area and femoral area were identified. A similar dissection was performed on the left. Again because of the patient's bulbous positioning this dissection was more tedious than normal however I was able to achieve it. I had the retropubic area nicely dissected with the bladder nicely mobilized. On each side I placed a large Bard 3D max mesh. I screwed those in place laterally superiorly and medially with secure strap. They slightly overlapped at the midline. Good positioning and good coverage was achieved. The peritoneum was then approximated to itself using secure strap and hemo-lock clips. Complete obliteration to the mesh was achieved. The abdomen was allowed to deflate of the CO2 through an antiviral valve. Trochars were removed. The fascia at the umbilicus approximated with a running 0 Vicryl. Skin edges approximate interrupted 4 Monocryl subdermal stitches. Steri-Strips Telfa OpSite dressings applied. Sponge and instrument and needle counts were reported to the surgeon to be correct. Blood loss minimal. Specimens none. Drains none. Blood loss minimal. Ac Sales M.D., F.A.C.S. Type of Anesthesia:: General Anesthesiologist: Yrn Mccord
== END 2020-04-02 11:35 | disposition home or self-care (01) ==
LOC: SDC 05:34 → AC 05:35
PROVIDERS: PCP Family Medicine; Referring Provider Surgery; Visit Provider Surgery
PROC: (CPT 49650; principal; 2020-04-02 07:10)
DX: K40.20 Bilateral inguinal hernia, without obstruction or gangrene, not specified as recurrent (principal); I10 Essential (primary) hypertension; M19.90 Unspecified osteoarthritis, unspecified site; N40.0 Benign prostatic hyperplasia without lower urinary tract symptoms; E66.9 Obesity, unspecified; Z79.82 Long term (current) use of aspirin; Z79.899 Other long term (current) drug therapy; Z85.828 Personal history of other malignant neoplasm of skin; Z87.891 Personal history of nicotine dependence; Z90.49 Acquired absence of other specified parts of digestive tract; Z11.59 Encounter for screening for other viral diseases
CPT/HCPCS: 49650; 36415; 80048; 85027; 87635; 93005; G2023; J7120; C1781; J2405; U0004

== ENCOUNTER → 2020-04-15 | Outpatient (CLI) | payer MEDICARE, OTHER, SELFPAY ==
[2020-04-07 10:12] VITALS: BMI 29.8
== END | disposition home or self-care (01) ==
LOC: LABSPEC 11:03
PROVIDERS: PCP Family Medicine; Visit Provider Nurse Practitioner Adult Health
DX: N39.0 Urinary tract infection, site not specified (principal)
CPT/HCPCS: 87077; 87086; 87088; 87186

== ENCOUNTER 2020-04-18 12:31 | Emergency (ER) | payer MEDICARE, OTHER, SELFPAY ==
[2020-04-07 10:12] VITALS: BMI 29.8
[2020-04-18 12:32] VITALS: BP 144/91; PULSE 96; RESP 17; TEMP 36.3; O2SAT 97; BMI 29.9
--- NOTE | 2020-04-18 12:50 | CT_ITS ---
STUDY: CT PELVIS WITH CONTRAST REASON FOR EXAM: Male, 84 years old. POST OP PAIN, B/L HERNIA REPAIR, BLADDER PAIN, WHARTON REMOVED YESTERDAY RADIATION DOSAGE (If Supplied By Facility): CTDIvol = ( 27.72 ) mGy, DLP = ( 300.248 ) mGycm TECHNIQUE: Transaxial imaging of the pelvis was performed without oral contrast. IV 100mL Isovue-370 was administered intravenously. Individualized dose optimization techniques were used for this CT. COMPARISON: None. FINDINGS: A Wharton catheter is seen within a decompressed urinary bladder. The prostate is enlarged. It measures 6.7 cm x 6.6 cm x 8 cm. Calcifications are seen along its left posterior aspect. There is also evidence of a 2 cm x 1.6 cm hypodense nodule in the left anterior aspect of the prostate. Normal visualized small intestine. There are multiple colonic diverticula of the sigmoid colon consistent with chronic diverticulosis. There is no pelvic fluid. There is no pelvic lymphadenopathy or mass lesion. There is diffuse atherosclerotic calcification of the pelvic arteries. There is evidence of a right inguinal hernia containing fat and fluid. The fluid collection measures 3 cm x 3.2 cm. Increased markings are seen in the peritoneal fat just anterior to the lateral aspects of the bladder most likely postoperative in nature. There are mild degenerative changes of the visualized lumbar spine. Degenerative changes of the hip joints worse on the right side. There is evidence of a 6.6 mm focal sclerotic focus in the right iliac bone in the supra-acetabular region. CT/Pelvis WITH IV Contrast IMPRESSION: Inhomogeneous enlargement of prostate with calcification. Small right inguinal containing fat and a small fluid collection as described. Increased markings are seen in the peritoneal fat surrounding the urinary bladder. A Wharton catheter is seen within a decompressed urinary bladder. Electronically Signed: Choco Guerra, at 14:22 EDT , Service support ,
--- NOTE | 2020-04-18 12:53 | ED.DCSUM_ITS ---
History of Present Illness Chief Complaint: Complaint Informant: Patient Onset: Days Narrative: Patient underwent right inguinal hernia repair on April [address] Sales. Patient developed postop urinary retention and has had a catheter intermittently since that time. Salinas catheter was removed 4 days ago. Patient states he continues to have pain over his bladder and in the right groin. He does still have a firm swollen area noted. Patient states that most of the time he is urinating okay, but does have problems intermittently. He is currently on Cipro for UTI. He has 3 tabs left. He did have fever early in his course of antibiotic therapy. - Past Medical History (1) BPH (benign prostatic hypertrophy) Status: Chronic (2) Bilateral inguinal hernia Status: Chronic (3) Hypertension Status: Chronic Past Medical History - Allergies and Home Meds Allergies/Adverse Reactions: Allergies tamsulosin [From Flomax] Adverse Reaction (Mild, Verified 04/18/20 12:32) dizzy/fainting Primary Care Physician: Power Perez MD [Primary Care Provider] - Prior records reviewed: Yes Surgical History: cholecystectomy Smoking Status: Former smoker - Family History Maternal Family History: Family History (Last Updated 03/20/20 @ 08:09 by Vanna Marin) Father Hypertension Family History: Reports: No pertinent history Review of Systems General: Reports: Fever Eyes: Denies: Visual changes - bilaterally ENT: Denies: Bilateral ear pain Cardiovascular: Denies: Chest pain Respiratory: Denies: Dyspnea, Cough Gastrointestinal: Reports: Abdominal pain. Denies: Vomiting, Diarrhea Genitourinary: Denies: Dysuria, Hematuria Musculoskeletal: Denies: Swelling, Extremity Pain Skin: Denies: Rash Neurological: Denies: Headache Hematologic: Denies: Easy bruising, Easy bleeding Allergy: Denies: Uticaria Physical Exam Vital Signs/Narrative: Vital Signs Temp Pulse Resp BP Pulse Ox 04/18/20 12:32 97.4 F L 96 17 144/91 H 97 Inital Vital Signs reviewed: Yes General: Well nourished, Well developed Head: Normocephalic ENT: Moist mucous membranes Neck: Supple Cardiovascular: Regular rate, Regular rhythm Respiratory: No distress, CTA bilaterally Abdomen: Soft, - - Patient is a firm painful mass in the right inguinal region. No overlying skin changes. No scrotal/testicular tenderness. Skin: Normal color Neurological: Alert, Oriented x3 Psychological: Normal affect Diagnostic/Tx/Re-eval Impressions Pelvis CT 04/18/20 12:50 IMPRESSION: Inhomogeneous enlargement of prostate with calcification. Small right inguinal containing fat and a small fluid collection as described. Increased markings are seen in the peritoneal fat surrounding the urinary bladder. A Salinas catheter is seen within a decompressed urinary bladder. Electronically Signed: Choco Guerra, at 14:22 EDT , Service support , 04/18/20 12:50 CT Pel [Pelvis WITH IV Contrast] [CT] Stat Laboratory Results 04/18/20 04/18/20 13:03 13:20 Sodium 133 L Potassium 4.0 Chloride 103 Carbon Dioxide 23.0 Anion Gap 7 BUN 20 H Creatinine 1.00 Estim Creat Clear Calc 54.15 Est GFR (MDRD) Af Amer 92 Est GFR (MDRD) Non-Af 76 BUN/Creatinine Ratio 20.0 Glucose 153 H Calcium 8.6 Urine Color Aimee Urine Clarity Sl. Cloudy Urine pH 5.0 Ur Specific [place] 1.020 Urine Protein 30 H Urine Glucose (UA) Normal Urine Ketones Negative Urine Occult Blood 25 H Urine Nitrite Positive H Urine Bilirubin 3 H Urine Urobilinogen 4 H Ur Leukocyte Esterase 500 H Urine RBC 0-5 SEEN Urine WBC 25-50 SEEN Ur Squamous Epith Cells 0 SEEN Urine Bacteria 2+ Urine Mucus 0 SEEN - Medical Decision Making Patient did have urinary retention. Prevoid ultrasound revealed 775 cc. Post void revealed 664 cc. Salinas catheter was placed. Urine still shows evidence of infection at this time, however patient is still on Cipro. New urine culture was sent. I did speak with Dr. Salinas. He wants to see the patient on Tuesday. Patient has Cipro to take through Tuesday. When Dr. Salinas sees the patient on Tuesday he will readdress the catheter as well as any further antibiotics that are needed. Patient is comfortable with this plan. ED Disposition - Plan for ED Patient: Disposition: Home or Assisted Living Diagnosis: Urinary retention Instructions: ED Urinary Retention Male Referrals: Anuel Salinas MD [STAFF PHYSICIAN] - 2 Days
[2020-04-18 13:23] LABS: Anion Gap 7 (5-15); BUN 20 mg/dL (7-18); Calcium,Total 8.6 mg/dL (8.5-10.1); Chloride 103 mmol/L (98-107); EST Glomerular Filtration Rate 76 mL/min (>60); Est Glom Filt Rate - Afr Amer 92 mL/min (>60); Estimated Creatinine Clearance 54.15 ml/min; Glucose 153 mg/dL (74-106); Sodium Level 133 mmol/L (136-145)
[2020-04-18 13:26] LABS: Mucous, Urine 0 SEEN /hpf (<or=2+); Squamous Epithelial Cells - UA 0 SEEN /hpf (0-5)
[2020-04-18 13:29] LABS: Color, Urine Amber (Yellow); Glucose, Dipstick Normal (Normal); Ketone-Dipstick Negative (Negative); Leukocyte Esterase-Dipstick 500 /ul (Negative); Nitrite-Dipstick Positive (Negative); Occult Blood-Urine 25 /ul (Negative); Protein-Dipstick 30 mg/dl (Negative); Urine Clarity Sl. Cloudy (Clear); Urine Urobilinogen 4 mg/dl (Normal)
[2020-04-18 13:34] LABS: Urine Bilirubin Dipstick 3 mg/dL (Negative)
[2020-04-18 13:38] LABS: Bacteria 2+ /hpf (None Seen); Red Blood Cells-Urine 0-5 SEEN /hpf (0-5); White Blood Cells 25-50 SEEN /hpf (0-5)
--- NOTE | 2020-04-18 13:43 | ED.RN ---
pre void bladder scan 755, post void scan 664
[2020-04-18 14:58] VITALS: BP 133/73; PULSE 78; RESP 16; O2SAT 98
[2020-04-18 15:33] VITALS: BP 138/74; PULSE 67; RESP 18; O2SAT 98
== END 2020-04-18 15:34 | disposition home or self-care (01) ==
PROVIDERS: Emergency Provider Emergency Medicine; PCP Family Medicine
DX: N40.1 Benign prostatic hyperplasia with lower urinary tract symptoms (principal); R33.8 Other retention of urine; N39.0 Urinary tract infection, site not specified; I10 Essential (primary) hypertension; Z79.899 Other long term (current) drug therapy; Z79.82 Long term (current) use of aspirin; Z87.891 Personal history of nicotine dependence; Z90.49 Acquired absence of other specified parts of digestive tract
CPT/HCPCS: 51702; 72193; 80048; 81001; 87086; 99284; J7050; Q9967; A4216

== ENCOUNTER 2020-04-26 11:57 | Inpatient (IN) | payer MEDICARE, OTHER, SELFPAY ==
[2020-04-25] VITALS (11 sets, daily range): BP systolic 106–150; BP diastolic 50–74; PULSE 74–95; RESP 16; TEMP 35.7–36.9; O2SAT 92–100; BMI 28.4
--- NOTE | 2020-04-25 12:58 | PCM.HP.STD ---
History of Present Illness Date of Admission: 04/25/20 Chief Complaint: BPH with obstruction and urinary retention The patient is a 84 year old male who is developed retention of urine he has got a catheter in talk about options of management and we can proceed with a transurethral resection of the prostate to hopefully restore normal voiding Past Medical History Past Medical History (Chronic Problems): Chronic Problems (Last Updated 04/11/20 @ 13:38 by Digna Garcia) Bilateral inguinal hernia (Chronic) BPH (benign prostatic hypertrophy) (Chronic) Hypertension (Chronic) Medical History: Medical History (Last Reviewed 04/25/20 @ 12:[address] Anuel Salinas MD) Bilateral inguinal hernia (Chronic) K40.20 BPH (benign prostatic hypertrophy) (Chronic) N40.0 Dehydration (Acute) E86.0 Sinus tachycardia (Acute) R00.0 Orthostasis (Acute) I95.1 Hypertension (Chronic) I10 Syncope (Acute) R55 Arthritis M19.90 Hemorrhoids K64.9 Left inguinal hernia K40.90 Urinary retention R33.9 Allergies tamsulosin [From Flomax] Adverse Reaction (Mild, Verified 04/25/20 12:39) dizzy/fainting Home Medications: Ambulatory Orders Medication Instructions Recorded Aspirin [Aspirin, Baby] 81 mg PO DAILY@0800 03/17/18 Lisinopril [Zestril] 10 mg PO DAILY 03/17/18 dutasteride 0.5 mg capsule 0.5 mg PO DAILY 03/20/20 multivitamin 1 cap PO DAILY 03/20/20 Alfuzosin HCl [Alfuzosin HCl ER] 10 mg PO QHS 04/18/20 Ciprofloxacin HCl 500 mg PO BID 04/18/20 Surgical History: Surgical History (Last Updated 04/11/20 @ 13:38 by Digna Garcia) History of laparoscopic cholecystectomy Z90.49 History of left inguinal hernia repair Onset Date: ~03/2020 Z98.890, Z87.19 Surgical History: cholecystectomy Psychiatric History: No pertinent psych hx Smoking Status: Former smoker - *Family History Maternal Family History: Family History (Last Updated 03/20/20 @ 08:09 by Vanna Marin) Father Hypertension History Items: No pertinent history Review of Systems Constitutional: Denies: Chills, Fever, Weight Change HEENT: Denies: Head Aches, Sinus Congestion, Sinus Drainage Cardiovascular: Denies: Chest Pain, Palpitations Respiratory: Denies: Cough, Shortness of breath at rest, Sputum production Gastrointestinal: Denies: Abdominal Pain, Nausea, Vomiting Genitourinary: Denies: Dysuria Musculoskeletal: Denies: Joint Pain, Joint Tenderness Skin: Denies: Rash, Wounds Neurological: Denies: Numbness, Tingling, Focal weakness Psychiatric: Denies: Anxiety, Depression, Homicidal Ideations, Suicidal Ideations Hematologic/ Lymphatic: Denies: Easy Bruising, Easy Bleeding VTE Information - Inpt Only VTE Present on Admission: No VTE Mechan Device Prophylaxis: SCD's - Physical Exam Vitals/I&O's: Vital Signs Temp Pulse Resp BP Pulse Ox 98.1 F 85 16 128/66 H 98 04/25/20 12:46 04/25/20 12:46 04/25/20 12:46 04/25/20 12:46 04/25/20 12:46 Oxygen Delivery Method Room Air Weight: 86.1 kg Body Mass Index (BMI) 28.4 Finger Stick Blood Glucose 176 General: Alert, Oriented x3, Cooperative HEENT: Atraumatic, PERRLA, EOMI, Normocephalic Neck: Supple, No JVD, Negative Carotid Bruits Lungs: Clear to auscultation, Normal air movement Cardiovascular: Regular rate, No murmurs Abdomen: Bowel Sounds Present, Soft, Non Tender Extremities: No edema, Capillary Refill Less than 3 Seconds Skin: No rashes, No breakdown Musculoskeletal: No Tenderness to Palpation of Joints or Extremities Neurological: Cranial nerves II-XII grossly intact Psych/Mental Status: Normal Affect, Appropriate Laboratory Results 04/24/20 16:20: COVID-19 (BIBI) Not Detected Assessment/Plan All Active Problems (Last Updated 04/11/20 @ 13:38 by Digna Garcia) Dehydration (Acute) Sinus tachycardia (Acute) Orthostasis (Acute) Syncope (Acute) Cholecystitis (Resolved) Plan to proceed with a transurethral resection of the prostate.
--- NOTE | 2020-04-25 12:59 | DCINST_ITS ---
Discharge Diet: No Restrictions, Light diet - advance as tolerated Discharge Activity: Return to Normal Activity, May Not Drive - for 2 days., May not drive while taking narcotic pain medications. Additional Activity Instructions:: Please be aware that pain medications may cause nausea. You should typically eat light foods as you take your pain medication. Pain medication may cause constipation, if this is a problem for you, please discuss with your doctor. Allergies/Adverse Reactions: Allergies tamsulosin [From Flomax] Adverse Reaction (Mild, Verified 04/25/20 12:39) dizzy/fainting Medications to take at Discharge Aspirin [Aspirin, Baby] 81 mg PO DAILY@0800 03/17/18 Lisinopril [Zestril] 10 mg PO DAILY 03/17/18 dutasteride 0.5 mg capsule 0.5 mg PO DAILY 03/20/20 multivitamin 1 cap PO DAILY 03/20/20 Alfuzosin HCl [Alfuzosin HCl ER] 10 mg PO QHS 04/18/20 Ciprofloxacin HCl 500 mg PO BID 04/18/20 Ciprofloxacin [Cipro] 500 mg PO BID #14 tab 04/25/20 The following prescriptions were given: Ciprofloxacin [Cipro] 500 mg PO BID #14 tab Transmission Status: Pending to [id number] Primary Care Physician: Power Perez MD [Primary Care Provider] - Test Results: Test results from this visit will be discussed in further detail at your follow- up appointment, if applicable. Please Follow Up With: Anuel Salinas MD When: in 2 weeks, please call to make an appointment. Proposed Discharge Date: 04/26/20
[2020-04-25] MEDS: Lactated Ringers 1,000 ML 100 ML IV (13:00)
[2020-04-25] MEDS: Cefazolin 2 GM in 0.9% Normal Saline 100 ML IV (13:33)
[2020-04-25] MEDS: Lubricating Jelly 60 GM Tube 30 GM TOPICAL (14:05)
--- NOTE | 2020-04-25 14:20 | PROS_PTH ---
PATIENT: BRAD OCASIO LOC: MS3 U#:[id number] AGE/SX: 84/M ROOM: VT322 RE04/27/[address]: Dr. Anuel Salinas MD : [id number] BED: 1 DIS: 04/28/2020 SPEC #: [id number] RECD: 04/28/20 07:22 STATUS: SHARA ANGULO #: [id number] FREDY: 04/25/20 14:[address]: Anuel Salinas DEPT: SURGICAL PATHOLOGY RECD BY: Amari Doan ENTERED: 04/28/20 09:44 SP TYPE: TURP OTHR DR: Dr. Power Perez MD Tissues: Prostate, NOS Procedures: Surgery Specimen Level IV HEADER OPERATION: Cystoscopy, TUR prostate PRE-OP DIAGNOSIS: BPH, urinary retention, elevated PSA, acute cystitis with hematuria TISSUE SUBMITTED: Prostate tissue MICROSCOPIC DIAGNOSIS Prostate tissue, TUR: Benign prostatic hyperplasia, glandular and stromal type. Chronic inflammation and basal cell hyperplasia. IFEANYI:job 04/29/20 MICROSCOPIC DESCRIPTION Slides are reviewed. GROSS DESCRIPTION Received is one container labeled with the patient's name and designated prostate tissue. The specimen consists of multiple irregular fragments of pink-pompa, rubbery, soft tissue that in aggregate weigh 30.7 gm and measure in aggregate 8 x 8 x 3 cm. A few blood clots are also noted. A few fragments of stones are also noted. Process Control Manager tissue is submitted in 12 cassettes. / IFEANYI:job 04/28/20 TC:5 CPT: 22071
--- NOTE | 2020-04-25 15:31 | OP.PCM_ITS ---
Report of Operation Date of Procedure: 04/25/20 Pre-Operative Diagnosis: Bladder stones, large. BPH with obstruction and urinary retention Post-Operative Diagnosis: The same Surgery/Procedure Performed:: Cystoscopy cystolitholapaxy and laser of large bladder stones 3 cm in size. Transurethral resection of the prostate with Olympus bipolar Description of Surgical Findings:: 84-year-old male has developed retention of urine he now presents to the hospital for transurethral resection of the prostate. Plan to taken back to surgery to a cystoscopy and then resect the prostate. Patient was taken back to the operating room, after smooth induction of general anesthesia, he was placed in dorsolithotomy position. The penis and testicles were prepped and draped in the usual sterile fashion the catheter was removed. I first went in to the bladder with a 26 Citizen [place] continuous flow resectoscope. Upon entering the bladder I found a 3 cm stones in the bladder I then switched over to the laser bridge and used the thousand micron laser fiber and lasered the stones completely into little pieces and flushed all the stones out of the bladder. Once I was done with that procedure then I switched over to the resectoscope and I put in the bipolar resectoscope inspected the prostate he had a very large obstructive bipolar lobar prostate with a significant amount of prostate extremely large. I started the resection in the bladder neck working my way back to the verumontanum I then resected the right lobe of the prostate in several segments and then resected the left lobe of the prostate in several segments it was a very large deep prostate I then switched over to the button I smoothed out the resection smooth out the apical tissue did a flow test had a wide open flow I then cauterized the prostate extensively got all the chips out and eventually was done with the resection of the prostate the verumontanum was intact the sphincter was intact left and right ureteral orifice were uninjured these were intact at the end of the procedure. At the end we did a Crede maneuver and had a good open flow sphincter was intact. Put a 24 Citizen [place] catheter into the bladder and continuous bladder irrigation the urine was clear. Again it was very large prostate resection time was an 1.5 hr. may do there were Type of Anesthesia:: General Drains: 3 way anderson - Admit VTE Documentation VTE Present on Admission: No VTE Mechan Device Prophylaxis: SCD's
[2020-04-25] MEDS: 0.9% Normal Saline 1,000 ML 75 ML IV (17:37)
[2020-04-25] MEDS: Ciprofloxacin 400 MG/200 ML BAG 200 MG IV (21:49)
[2020-04-25] MEDS: Docusate Sodium 100 MG Capsule PO (21:49)
[2020-04-26 02:16] VITALS: BP 120/55; PULSE 102; RESP 18; TEMP 37.8; O2SAT 97
--- NOTE | 2020-04-26 06:13 | NURSING ---
0600 came to turn CBI off, pt reported feeling pressure, irrigated with 120 ml removed several clots. Reports feeling less pressure. Procedure well tolerated.
[2020-04-26 08:16] VITALS: BP 122/69; PULSE 96; RESP 18; TEMP 37.9; O2SAT 95
[2020-04-26] MEDS: Pantoprazole Sodium 40 MG Tablet PO (08:20)
[2020-04-26] MEDS: Docusate Sodium 100 MG Capsule PO ×2 (08:21→21:24)
[2020-04-26] MEDS: Lisinopril 10 MG Tablet PO (08:21)
[2020-04-26] MEDS: Ciprofloxacin 400 MG/200 ML BAG 200 MG IV (10:02)
--- NOTE | 2020-04-26 10:35 | PCM.PN.BLA ---
Progress Note urine still bloody hold off on anderson remove. irrigate as needed. maybe ready to d/c tomorrow
[2020-04-26 12:00] VITALS: BP 129/56; PULSE 102; RESP 16; TEMP 36.8; O2SAT 94
[2020-04-26 18:00] VITALS: BP 113/53; PULSE 94; RESP 16; TEMP 37.4; O2SAT 97
[2020-04-26 20:55] VITALS: BP 99/57; PULSE 90; RESP 16; TEMP 37.2; O2SAT 97
[2020-04-27 02:35] VITALS: BP 130/55; PULSE 82; RESP 16; TEMP 36.7; O2SAT 98
[2020-04-27 07:35] VITALS: PULSE 90
[2020-04-27 07:36] VITALS: BP 111/50; PULSE 89; RESP 16; TEMP 36.8; O2SAT 97
--- NOTE | 2020-04-27 09:38 | PCM.PN.BLA ---
Progress Note 84 yo male who had v large prostate urine still bloody per nursing staff keep anderson, can't send home with such bloody urine hopefully by tomorrow can d/c anderson? STROKE Vital Signs/Narrative: Vital Signs Temp Pulse Resp BP Pulse Ox 04/27/20 07:36 98.2 F 89 16 111/50 L 97 04/27/20 07:35 90
[2020-04-27] MEDS: Pantoprazole Sodium 40 MG Tablet PO (10:01)
[2020-04-27] MEDS: Docusate Sodium 100 MG Capsule PO (10:01)
[2020-04-27] MEDS: Lisinopril 10 MG Tablet PO (10:01)
[2020-04-27 11:45] VITALS: BP 126/72; PULSE 103; RESP 25; TEMP 36.8; O2SAT 98
[2020-04-27] MEDS: Acetaminophen 325 MG Tablet PO ×2 (12:20→21:12)
[2020-04-27 14:23] VITALS: BP 122/49; PULSE 84; RESP 18; TEMP 36.9; O2SAT 98
--- NOTE | 2020-04-27 17:59 | NURSING ---
Daughter Rosa called with update.
[2020-04-27 20:20] VITALS: BP 104/56; PULSE 84; RESP 16; TEMP 36.4; O2SAT 97
[2020-04-28 03:05] VITALS: BP 122/67; PULSE 83; RESP 16; TEMP 36.3; O2SAT 98
[2020-04-28] MEDS: Acetaminophen 325 MG Tablet PO (03:22)
--- NOTE | 2020-04-28 06:56 | PCM.DC.SUM ---
Discharge Date and Diagnosis Date of Admission: 04/25/20 Date of Discharge: 04/28/20 - Secondary Discharge Diagnosis Chronic Problems: Chronic Problems (Last Reviewed 04/25/20 @ 12:[address] Anuel Salinas MD) Bilateral inguinal hernia (Chronic) BPH (benign prostatic hypertrophy) (Chronic) Hypertension (Chronic) Hospital Course and Treatment Operations: None, TURP Summary of Care Provided: The patient is a 84 year old male status post TURP kept over the weekend because of heavy bleeding finally the urine is clear this morning with DC Salinas and home after voids. - Physical Exam Vitals/I&O's: Vital Signs Temp Pulse Resp BP Pulse Ox 97.4 F L 83 16 122/67 H 98 04/28/20 03:05 04/28/20 03:05 04/28/20 03:05 04/28/20 03:05 04/28/20 03:05 Oxygen Flow Rate (L/min) 1.5 Oxygen Delivery Method Room Air Weight: 86.1 kg Body Mass Index (BMI) 28.4 Finger Stick Blood Glucose 176 Intake and Output for Last 24 Hours 04/26/20 04/27/20 04/28/20 23:59 23:59 23:59 Intake Total 2890 / 2890 1850 / 1850 700 / 700 Output Total 3625 / 3625 3310 / 3310 600 / 600 Balance -735 / -735 -1460 / -1460 100 / 100 General: Alert, Oriented x3, Cooperative HEENT: Atraumatic, PERRLA, EOMI, Normocephalic Neck: Supple, No JVD, Negative Carotid Bruits Lungs: Clear to auscultation, Normal air movement Cardiovascular: Regular rate, No murmurs Abdomen: Bowel Sounds Present, Soft, Non Tender Extremities: No edema, Capillary Refill Less than 3 Seconds Skin: No rashes, No breakdown Musculoskeletal: No Tenderness to Palpation of Joints or Extremities Neurological: Cranial nerves II-XII grossly intact Psych/Mental Status: Normal Affect, Appropriate Current Medications Acetaminophen (Tylenol) 325 mg PO Q4H PRN PRN PRN Reason: Pain Score 1-10/10 Last Admin: 04/28/20 03:22 Dose: 325 mg Documented by: Al Hydroxide/Mg Hydroxide (Mylanta Ii) 30 ml PO Q4H PRN PRN PRN Reason: Heartburn Alfuzosin HCl (Uroxatral) 10 mg PO QHS [facility] Last Admin: 04/27/20 21:13 Dose: Not Given Documented by: Belladonna Alkaloids/Opium (B & O) 60 mg RECTAL Q6H PRN PRN PRN Reason: Spasm Last Admin: 04/26/20 15:56 Dose: 60 mg Documented by: Docusate Sodium (Colace) 100 mg PO BID [facility] Last Admin: 04/27/20 21:13 Dose: Not Given Documented by: Sodium Chloride () 250 mls @ 15 mls/hr IV .[id number] PRN PRN Reason: Saline Flush Sodium Chloride () 250 mls @ 15 mls/hr IV .[id number] PRN PRN Reason: Additional IVPB Infusion Ibuprofen (Motrin) 600 mg PO Q6H PRN PRN PRN Reason: Pain Score 1-10/10 Lisinopril (Zestril) 10 mg PO DAILY [facility] Last Admin: 04/27/20 10:01 Dose: 10 mg Documented by: Ondansetron HCl (Zofran) 4 mg IV Q6H PRN PRN PRN Reason: Nausea Oxycodone HCl (Oxyir) 5 mg PO Q4H PRN PRN PRN Reason: Pain Score 1-10/10 Pantoprazole Sodium (Protonix) 40 mg PO DAILY [facility] Last Admin: 04/27/20 10:01 Dose: 40 mg Documented by: Sodium Chloride () 10 - 40 ml IV UD PRN PRN Reason: SALINE FLUSH Tolterodine Tartrate (Detrol La) 4 mg PO DAILY PRN PRN PRN Reason: Spasms Discharge Diet: No Restrictions, Light diet - advance as tolerated Discharge Activity: Return to Normal Activity, May Not Drive - for 2 days., May not drive while taking narcotic pain medications. Additional Activity Instructions:: Please be aware that pain medications may cause nausea. You should typically eat light foods as you take your pain medication. Pain medication may cause constipation, if this is a problem for you, please discuss with your doctor. Home Medications: Medications to take at Discharge Aspirin [Aspirin, Baby] 81 mg PO DAILY@0800 03/17/18 Lisinopril [Zestril] 10 mg PO DAILY 03/17/18 dutasteride 0.5 mg capsule 0.5 mg PO DAILY 03/20/20 multivitamin 1 cap PO DAILY 03/20/20 Alfuzosin HCl [Alfuzosin HCl ER] 10 mg PO QHS 04/18/20 Ciprofloxacin HCl 500 mg PO BID 04/18/20 Ciprofloxacin [Cipro] 500 mg PO BID #14 tab 04/25/20 Following Prescrptions Were Given to Patient: Ciprofloxacin [Cipro] 500 mg PO BID #14 tab Transmission Status: Received by [id number] Primary Care Physician: Power Perez MD [Primary Care Provider] - Please Follow Up With: Anuel Salinas MD When: in 2 weeks, please call to make an appointment. Medical Necessity - Tobacco Use Smoking Status: Former smoker Meaningful Use Info Meaningful Use Diagnoses (Choose all that apply): None applicable
[2020-04-28 07:52] VITALS: BP 122/60; PULSE 89; RESP 18; TEMP 36.7; O2SAT 100
[2020-04-28] MEDS: Pantoprazole Sodium 40 MG Tablet PO (10:03)
[2020-04-28] MEDS: Lisinopril 10 MG Tablet PO (10:03)
--- NOTE | 2020-04-28 10:40 | CASEMGMT ---
RN CRISTHIAN Face to Face with patient for initial transition planning/care coordination assessment. RN CM introduced self and role at [facility]. Patient sitting in chair, alert and oriented. Patient willing to participate in assessment and is able to answer all questions appropriately. Care providers, pharmacy, and demographics verified. Patient wishes to discharge home, denies need for home health at this time. Patient states he has no further needs or concerns at this time. CM to follow for discharge planning needs that may arise. PCP: Ana Specialists: Brad urologist Preferred Pharmacy: [facility] Insurance: [employer] Prescription Benefit: yes Living Will/HPOA: yes, Rosa Maciel LNOK: Living Arrangements: Patient lives alone in 1 story home with 2-3 steps and railing to enter the home. Transportation: self/daughter DME/HHC: Patient denies any DME or previous HHC Disposition Plan: Patient to discharge home with family support and follow-up plans in place. Lou SIMON, RN, CM
--- NOTE | 2020-04-28 10:52 | PHA.DC.MC ---
Pharmacy Service has performed discharge medication reconciliation and counseling for this patient The patient was counseled on the following discharge medications and changes in medications for homegoing were reviewed. 1. CIPRO: 500MG PO BID X 7 DAYS The Reason for Use, instructions for use, and potential side effects were reviewed for all new medications. The patient's questions regarding all of their medications were answered. Home Medications Aspirin [Aspirin, Baby] 81 mg PO DAILY@0800 03/17/18 Lisinopril [Zestril] 10 mg PO DAILY 03/17/18 dutasteride 0.5 mg capsule 0.5 mg PO DAILY 03/20/20 multivitamin 1 cap PO DAILY 03/20/20 Alfuzosin HCl [Alfuzosin HCl ER] 10 mg PO QHS 04/18/20 Ciprofloxacin [Cipro] 500 mg PO BID #14 tab 04/25/20 The patient was able to verbally demonstrate an understanding of their discharge medications. The patient's discharge medication list was reviewed for discrepancies and discrepancies were resolved.
--- NOTE | 2020-04-28 12:59 | NURSING ---
Pts CBI had been stopped @ 0600
--- NOTE | 2020-04-28 13:00 | NURSING ---
Addendum entered by Renate Osman 04/28/20 13:20: Bladder scan = 329ml, not 536ml. Original Note: Pt unable to void since anedrson out this am. Pt feeling pressure & discomfort. Bladder scan = 536. Dr Salinas made aware. New order for 18 fr anderson catheter to be inserted.
--- NOTE | 2020-04-28 13:21 | NURSING ---
18 fr anderson inserted without difficulty. Pt tolerated well. Immediately drained 500ml bloody urine with a few clots noted.
[2020-04-28 14:00] VITALS: BP 127/69; PULSE 92; RESP 18; TEMP 36.7; O2SAT 98
[2020-04-28 14:25] VITALS: BP 127/69; PULSE 92; RESP 18; TEMP 36.7; O2SAT 98
== END 2020-04-28 14:26 | disposition home or self-care (01) | DRG 713 ==
LOC: MS3 04-28 09:42 → SDC 04-28 09:50
PROVIDERS: Anesthesiology; Admitting Provider Urology; PCP Family Medicine; Referring Provider Urology; Visit Provider Urology
PROC: 0VT08ZZ Resection of Prostate, Via Natural or Artificial Opening Endoscopic (ICD-10-PCS; principal; 2020-04-25 14:10)
DX: N40.1 Benign prostatic hyperplasia with lower urinary tract symptoms (principal); N30.01 Acute cystitis with hematuria; N13.8 Other obstructive and reflux uropathy; R33.8 Other retention of urine; R35.0 Frequency of micturition; N21.0 Calculus in bladder; I10 Essential (primary) hypertension; M19.90 Unspecified osteoarthritis, unspecified site; Z79.82 Long term (current) use of aspirin; Z79.899 Other long term (current) drug therapy; Z87.891 Personal history of nicotine dependence
CPT/HCPCS: 87635; 88305; G2023; J7030; J7120; J0744; J2405; U0003

== ENCOUNTER → 2020-05-05 09:39 | Outpatient (CLI) | payer MEDICARE, OTHER, SELFPAY ==
[2020-04-25 17:29] VITALS: BMI 28.4
[2020-05-05 10:26] LABS: Hematocrit 36.3 % (40-54); Hemoglobin 11.3 g/dL (13.0-16.5); Mean Corp Hgb Conc 31.1 g/dL (32-36); Mean Corpuscular Hgb 28.8 pg (27.0-32.0); Mean Corpuscular Volume 92.4 fL (80-94); Mean Platelet Vol. 10.8 fl (6.2-12.0); Platelet Count 178 K/mm3 (150-450); RBC Distribution Width CV 14.1 % (11.6-14.6); RBC Distribution Width SD 47.3 fl (35.1-43.9); Red Blood Count 3.93 M/mm3 (4.6-6.2); White Blood Count 5.8 K/mm3 (4.4-11.0)
[2020-05-05 10:53] LABS: Anion Gap 5 (5-15); BUN 15 mg/dL (7-18); BUN/Creat Ratio 12.8 RATIO (10-20); Calcium,Total 8.7 mg/dL (8.5-10.1); Chloride 105 mmol/L (98-107); Creatinine, Serum 1.17 mg/dL (0.70-1.30); EST Glomerular Filtration Rate 63 mL/min (>60); Est Glom Filt Rate - Afr Amer 76 mL/min (>60); Glucose 171 mg/dL (74-106); Potassium 4.2 mmol/L (3.5-5.1); Sodium Level 138 mmol/L (136-145)
== END ==
PROVIDERS: PCP Family Medicine; Referring Provider Urology; Visit Provider Urology
DX: Z48.816 Encounter for surgical aftercare following surgery on the genitourinary system (principal); N40.1 Benign prostatic hyperplasia with lower urinary tract symptoms
CPT/HCPCS: 36415; 80048; 85027

== ENCOUNTER → 2020-06-20 09:01 | Outpatient (CLI) | payer MEDICARE, OTHER, SELFPAY ==
[2020-04-25 17:29] VITALS: BMI 28.4
[2020-06-20 09:47] LABS: Absolute Lymphocyte Count 1.34 X10^3/uL (0.83-4.51); Absolute Neutrophil Count 2.1 X10^3/uL (2.0-7.7); Basophil# 0.01 X10^3/uL; Basophil% 0.2 % (0-1); Eosinophil# 0.02 X10^3/uL; Eosinophils% 0.4 % (0-5); Hematocrit 43.1 % (40-54); Hemoglobin 13.4 g/dL (13.0-16.5); Lymphocyte # 1.34 X10^3/ul (4.0); Lymphocyte % 26.9 % (19-41); Mean Corp Hgb Conc 31.1 g/dL (32-36); Mean Corpuscular Hgb 28.2 pg (27.0-32.0); Mean Corpuscular Volume 90.5 fL (80-94); Mean Platelet Vol. 11.1 fl (6.2-12.0); Monocyte# 1.43 X10^3/uL; Monocyte% 28.7 % (0-10); NRBC Flagged by Analyzer 0 % (0-5); Neutrophil # 2.11 X10^3/uL (2.7-7.7); Neutrophil % 42.4 % (47-70); Platelet Count 150 K/mm3 (150-450); RBC Distribution Width CV 14.6 % (11.6-14.6); RBC Distribution Width SD 48.5 fl (35.1-43.9); Red Blood Count 4.76 M/mm3 (4.6-6.2)
[2020-06-20 10:12] LABS: AST(SGOT) 18 U/L (15-37); Alanine Aminotransfer ALT/SGPT 29 U/L (16-61); Albumin, Serum 3.6 g/dL (3.2-5.0); Alkaline Phosphatase 80 U/L (45-117); Anion Gap 6 (5-15); BUN 16 mg/dL (7-18); BUN/Creat Ratio 15.5 RATIO (10-20); Calcium,Total 8.3 mg/dL (8.5-10.1); Chloride 108 mmol/L (98-107); Cholesterol 108 mg/dL (200); Creatinine, Serum 1.03 mg/dL (0.70-1.30); EST Glomerular Filtration Rate 73 mL/min (>60); Est Glom Filt Rate - Afr Amer 89 mL/min (>60); Ferritin 32 ng/mL (26-388); Globulin 3.5 g/dL (2.2-4.2); Glucose 127 mg/dL (74-106); High Density Lipoprotein 30 mg/dL; Potassium 4.4 mmol/L (3.5-5.1); Protein, Total 7.1 g/dL (6.4-8.2); Sodium Level 139 mmol/L (136-145); Triglycerides 61 mg/dL; Very Low Density Lipoprotein 12 mg/dL (5-40)
[2020-06-20 10:28] LABS: Microalbumin:Creatinine Ratio 325.5 mg/g CRE (<30 mg/g CRE)
[2020-06-20 10:40] LABS: Hemoglobin A1c 5.6 % (3.8-5.6)
== END ==
PROVIDERS: PCP Family Medicine; Referring Provider Family Medicine; Visit Provider Family Medicine
DX: E11.9 Type 2 diabetes mellitus without complications (principal); D64.9 Anemia, unspecified
CPT/HCPCS: 36415; 80053; 80061; 82043; 82570; 82728; 83036; 85025

== ENCOUNTER → 2020-12-16 11:54 | Outpatient (CLI) | payer MEDICARE, OTHER, SELFPAY ==
[2020-04-25 17:29] VITALS: BMI 28.4
--- NOTE | 2020-12-16 12:05 | RAD_ITS ---
STUDY: X-RAY - LEFT KNEE REASON FOR EXAM: Left knee pain, no recent injury. TECHNIQUE: 4 view(s) of the knee. COMPARISON: None. FINDINGS: Normal visualized distal femur. Normal visualized proximal tibia and fibula. Normal proximal tibiofibular articulation. There is severe joint space narrowing of the medial femorotibial compartment. There are very small marginal osteophytes without joint space narrowing of the lateral femorotibial compartment. There are small marginal osteophytes with moderate joint space narrowing of the patellofemoral articulation. There is a small joint effusion. There is an enthesophyte at the superior pole of the patella. There is a small ossification peripheral to the medial femoral condyle on the sunrise view. RAD/Knee 4 or More Views IMPRESSION: Arthrosis of the medial femorotibial and patellofemoral compartments. Small joint effusion. Electronically Signed: René Ellison MD at 13:09 EST Tel , Service support ,
== END ==
PROVIDERS: PCP Family Medicine; Referring Provider Family Medicine; Visit Provider Family Medicine
DX: M25.562 Pain in left knee (principal)
CPT/HCPCS: 73564

== ENCOUNTER → 2021-05-28 08:24 | Outpatient (CLI) | payer MEDICARE, OTHER, SELFPAY ==
[2020-04-25 17:29] VITALS: BMI 28.4
[2021-05-28 10:34] LABS: Hemoglobin A1c 5.9 % (3.8-5.6)
[2021-05-28 10:40] LABS: ALB/GLOB Ratio 1.2 RATIO (0.9-2.4); AST(SGOT) 21 U/L (15-37); Alanine Aminotransfer ALT/SGPT 30 U/L (16-61); Albumin, Serum 3.8 g/dL (3.2-5.0); Alkaline Phosphatase 79 U/L (45-117); Anion Gap 5 (5-15); BUN 19 mg/dL (7-18); BUN/Creat Ratio 15.4 RATIO (10-20); Calcium,Total 8.1 mg/dL (8.5-10.1); Chloride 106 mmol/L (98-107); Cholesterol 103 mg/dL (200); Creatinine, Serum 1.23 mg/dL (0.70-1.30); EST Glomerular Filtration Rate 60 mL/min (>60); Est Glom Filt Rate - Afr Amer 72 mL/min (>60); Globulin 3.2 g/dL (2.2-4.2); Glucose 111 mg/dL (74-106); High Density Lipoprotein 26 mg/dL; PSA,Total- Diagnostic 8.89 ng/mL (0.0-4.0); Potassium 4.6 mmol/L (3.5-5.1); Sodium Level 138 mmol/L (136-145); Triglycerides 77 mg/dL; Very Low Density Lipoprotein 15 mg/dL (5-40)
== END ==
PROVIDERS: PCP Family Medicine; Referring Provider Family Medicine; Visit Provider Family Medicine
DX: E11.9 Type 2 diabetes mellitus without complications (principal); I10 Essential (primary) hypertension; N40.0 Benign prostatic hyperplasia without lower urinary tract symptoms
CPT/HCPCS: 36415; 80053; 80061; 83036; 84153

== ENCOUNTER → 2021-07-31 | Outpatient (CLI) | payer MEDICARE, OTHER, SELFPAY | END | disposition home or self-care (01) | LOC: LABSPEC 16:36 | PROVIDERS: PCP Family Medicine; Referring Provider Family Medicine; Visit Provider Registered Nurse | DX: U07.1 COVID-19 (principal) | CPT/HCPCS: 87633; 87635; U0005; U0003 ==

== ENCOUNTER 2021-08-04 15:32 | Outpatient (CLI) | payer MEDICARE, OTHER, SELFPAY ==
[2021-08-04 15:57] VITALS: BP 136/56; PULSE 83; RESP 16; TEMP 37.7; O2SAT 98; BMI 28.8
[2021-08-04] MEDS: 0.9% Saline Lock 10 ML Syringe IV (16:01)
[2021-08-04 16:34] VITALS: BP 125/58; PULSE 73; RESP 16; TEMP 37.3; O2SAT 97
[2021-08-04 17:32] VITALS: BP 133/55; PULSE 71; RESP 16; TEMP 37.1; O2SAT 97
== END 2021-08-04 17:45 | disposition home or self-care (01) ==
LOC: MS3OUT 15:33 → MS3 15:34
PROVIDERS: PCP Family Medicine; Referring Provider Nurse Practitioner Adult Health; Visit Provider Nurse Practitioner Adult Health
DX: Z23 Encounter for immunization (principal); U07.1 COVID-19
CPT/HCPCS: J7050; M0243; A4216; Q0244

== ENCOUNTER 2021-12-22 16:38 | Outpatient (CLI) | payer MEDICARE, OTHER, SELFPAY | END 2021-12-22 23:59 | disposition home or self-care (01) | LOC: LABSPEC 16:40 | PROVIDERS: PCP Registered Nurse; Referring Provider Registered Nurse; Visit Provider Registered Nurse | DX: R30.0 Dysuria (principal) | CPT/HCPCS: 87086 ==

== ENCOUNTER → 2022-06-17 | Outpatient (CLI) | payer MEDICARE, SELFPAY ==
[2022-06-17 12:23] LABS: Hemoglobin A1c 5.9 % (3.8-5.6)
[2022-06-17 12:44] LABS: ALB/GLOB Ratio 1.1 RATIO (0.9-2.4); AST(SGOT) 25 U/L (15-37); Alanine Aminotransfer ALT/SGPT 34 U/L (16-61); Albumin, Serum 3.9 g/dL (3.2-5.0); Alkaline Phosphatase 76 U/L (45-117); Anion Gap 3 (5-15); BUN 25 mg/dL (7-18); BUN/Creat Ratio 17.5 RATIO (10-20); Calcium,Total 8.8 mg/dL (8.5-10.1); Chloride 108 mmol/L (98-107); Cholesterol 100 mg/dL (200); Creatinine, Serum 1.43 mg/dL (0.70-1.30); EST Glomerular Filtration Rate 50 mL/min (>60); Est Glom Filt Rate - Afr Amer 60 mL/min (>60); Globulin 3.7 g/dL (2.2-4.2); Glucose 130 mg/dL (74-106); High Density Lipoprotein 27 mg/dL; Potassium 4.3 mmol/L (3.5-5.1); Protein, Total 7.6 g/dL (6.4-8.2); Sodium Level 139 mmol/L (136-145); Triglycerides 122 mg/dL; Very Low Density Lipoprotein 24 mg/dL (5-40)
[2022-06-18 20:24] LABS: PSA, Free 4.15 ng/mL; PSA, Free % 44.1 % (.); PSA, Total 9.4 ng/mL (0.0-4.0)
== END | disposition home or self-care (01) ==
LOC: MFPLAB 11:16
PROVIDERS: PCP Registered Nurse; Visit Provider Family Medicine
DX: I10 Essential (primary) hypertension (principal); R73.01 Impaired fasting glucose; N40.0 Benign prostatic hyperplasia without lower urinary tract symptoms
CPT/HCPCS: 36415; 80053; 80061; 83036; 84153

== ENCOUNTER → 2023-01-10 | Outpatient (CLI) | payer MEDICARE, SELFPAY ==
--- NOTE | 2023-01-10 15:41 | NEURO ---
NCS and/or EMG Patient Report Ordering Doctor: Elisabeth Dutton DATE OF SERVICE: 01/10/23 Indication: Bilateral hand numbness involving all fingers for ~6 months. Evaluate for entrapment neuropathy. Findings: Nerve conduction studies were performed in the right and left upper extremities. The right median motor study recording the abductor pollicis brevis showed a normal amplitude, prolonged distal latency and mildly slowed conduction velocity. The right ulnar motor study recording the abductor digiti minimi showed a normal amplitude, normal distal latency and normal conduction velocity. No conduction block or focal slowing was present across the elbow. The right median sensory response recording digit two were absent. The right ulnar sensory response recording digit five was absent. The right radial sensory response recording over the extensor snuff box showed a normal amplitude, but spuriously fast conduction velocity. The left median motor study recording the abductor pollicis brevis showed a normal amplitude, prolonged distal latency and mildly slowed conduction velocity. The left ulnar motor study recording the abductor digiti minimi showed a normal amplitude, normal distal latency and normal conduction velocity. No conduction block or focal slowing was present across the elbow. The left median sensory response recording digit two was absent. The left ulnar sensory response recording digit five was absent. The right radial sensory response recording over the extensor snuff box showed a normal amplitude, but spuriously fast conduction velocity. Right median-ulnar lumbrical / interosseous motor latencies showed a prolonged median latency compared to the ulnar. Left median-ulnar lumbrical / interosseous motor latencies showed a prolonged median latency compared to the ulnar. Needle EMG of the bilateral upper extremity muscles was performed. Active denervation was seen in the bilateral first dorsal interosseous and abductor pollicis brevis muscles. Motor units in the bilateral first dorsal interosseous and abductor pollicis brevis muscles were large amplitude, long duration with reduced recruitment. Motor units in the flexor digitorum profundus were slightly large, but otherwise unremarkable. All other motor unit morphology, activation and recruitment patterns were within normal limits for age. Impression: This is an abnormal, but limited study. 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 The pathophysiology is demyelinating, but with secondary sensory axon loss. These findings are compatible with the clinical diagnosis of carpal tunnel syndrome. 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 Neuromuscular ultrasound could be considered for further characterization and localization. Jimi Marcum D.O. Multi Select Codes Neurology Neurology Interp Codes: 78744-75 [facility] [place] w/nerv tst diego (interp) (59), 30125-83 [facility] [place] test done w/n test comp (interp) and 02198-45 Nrv cndj test 13/> studies (interp)
== END | disposition home or self-care (01) ==
LOC: PSN 13:35
PROVIDERS: PCP Registered Nurse; Visit Provider Family Medicine
DX: R20.2 Paresthesia of skin (principal); R20.0 Anesthesia of skin
CPT/HCPCS: 95885; 95886; 95913

== ENCOUNTER → 2023-04-29 | Outpatient (CLI) | payer MEDICARE, SELFPAY | END | disposition home or self-care (01) | LOC: LABSPEC 12:39 | PROVIDERS: PCP Registered Nurse; Referring Provider Family Medicine; Visit Provider Family Medicine | DX: R31.9 Hematuria, unspecified (principal) | CPT/HCPCS: 87086 ==

== ENCOUNTER → 2023-06-01 | Outpatient (CLI) | payer MEDICARE, SELFPAY ==
[2023-06-01 09:03] LABS: Bacteria 0 SEEN /hpf (None Seen); Mucous, Urine 0 SEEN /hpf (<or=2+); White Blood Cells 0 SEEN /hpf (0-5)
[2023-06-01 10:45] LABS: Absolute Lymphocyte Count 1.34 X10^3/uL (0.83-4.51); Absolute Neutrophil Count 2.4 X10^3/uL (2.0-7.7); Basophil# 0.01 X10^3/uL; Basophil% 0.2 % (0-1); Eosinophil# 0.08 X10^3/uL; Eosinophils% 1.7 % (0-5); Hematocrit 40.9 % (40-54); Hemoglobin 12.6 g/dL (13.0-16.5); Lymphocyte # 1.34 X10^3/ul (0.83-4.51); Lymphocyte % 28.5 % (19-41); Mean Corp Hgb Conc 30.8 g/dL (32-36); Mean Corpuscular Hgb 27.9 pg (27.0-32.0); Mean Corpuscular Volume 90.7 fL (80-94); Mean Platelet Vol. 10.6 fl (6.2-12.0); Monocyte# 0.78 X10^3/uL; Monocyte% 16.6 % (0-10); NRBC Flagged by Analyzer 0 % (0-5); Neutrophil # 2.41 X10^3/uL (2.7-7.7); Neutrophil % 51.1 % (47-70); Platelet Count 184 K/mm3 (150-450); RBC Distribution Width SD 49.7 fl (35.1-43.9); Red Blood Count 4.51 M/mm3 (4.6-6.2); White Blood Count 4.7 K/mm3 (4.4-11.0)
[2023-06-01 10:59] LABS: Color, Urine Yellow (Yellow); Glucose, Dipstick Normal (Normal); Ketone-Dipstick Negative (Negative); Leukocyte Esterase-Dipstick Negative /ul (Negative); Nitrite-Dipstick Negative (Negative); Occult Blood-Urine 10 /ul (Negative); Protein-Dipstick 15 mg/dl (Negative); Specific Gravity, Urine 1.025 (1.002-1.030); Urine Bilirubin Dipstick Negative (Negative); Urine Clarity Clear (Clear); Urine Urobilinogen Normal (Normal)
[2023-06-01 11:27] LABS: Calcium Oxalate Crystals Ur 1+ /hpf (<or=2+); Red Blood Cells-Urine 0-5 SEEN /hpf (0-5); Squamous Epithelial Cells - UA 0-5 SEEN /hpf (0-5)
[2023-06-01 11:44] LABS: ALB/GLOB Ratio 0.9 RATIO (0.9-2.4); AST(SGOT) 25 U/L (15-37); Alanine Aminotransfer ALT/SGPT 28 U/L (16-61); Albumin, Serum 3.5 g/dL (3.2-5.0); Alkaline Phosphatase 81 U/L (45-117); Anion Gap 4 (5-15); BUN 20 mg/dL (7-18); Calcium,Total 8.5 mg/dL (8.5-10.1); Chloride 111 mmol/L (98-107); Cholesterol 86 mg/dL (200); Creatinine, Serum 1.43 mg/dL (0.70-1.30); EST Glomerular Filtration Rate 50 mL/min (>60); Est Glom Filt Rate - Afr Amer 60 mL/min (>60); Globulin 3.7 g/dL (2.2-4.2); Glucose 155 mg/dL (74-106); High Density Lipoprotein 26 mg/dL; Potassium 4.1 mmol/L (3.5-5.1); Protein, Total 7.2 g/dL (6.4-8.2); Sodium Level 141 mmol/L (136-145); Triglycerides 56 mg/dL; Very Low Density Lipoprotein 11 mg/dL (5-40)
== END | disposition home or self-care (01) ==
LOC: MFPLAB 09:01
PROVIDERS: PCP Family Medicine; Visit Provider Family Medicine
DX: I10 Essential (primary) hypertension (principal); R97.20 Elevated prostate specific antigen [PSA]; R31.9 Hematuria, unspecified
CPT/HCPCS: 36415; 80053; 80061; 81001; 84153; 85025; 87086; 87088

== ENCOUNTER 2023-06-23 14:28 | Emergency (ER) | payer MEDICARE, SELFPAY ==
[2023-06-23 14:30] VITALS: BP 150/83; PULSE 100; RESP 22; TEMP 36.3; O2SAT 99; BMI 28.5
--- NOTE | 2023-06-23 14:47 | EX.ED.DYSGE1 ---
HPI <Dr. Rico Mg MD - Last Filed: 06/23/23 16:44> History of Present Illness Chief Complaint: Complaint Informant: patient and family (son) Narrative Narrative: Patient has had hematuria for the past week, but it has been mild and intermittent until 3 days ago when he got worse. Now he is having lower abdominal discomfort and feels like he cannot empty. He has been seeing clots. He does not take any anticoagulant or antiplatelet medications including aspirin. He follows with Dr. Salinas, apparently he saw him last week and had a CT scan ordered but has not had it yet. He denies any fevers or chills, back pain, nausea or vomiting. No recent falls or injuries. PFSH <Dr. Rico Mg MD - Last Filed: 06/23/23 16:44> PFSH Medical History Arthritis Bilateral carpal tunnel syndrome Bilateral inguinal hernia BPH (benign prostatic hypertrophy) Dehydration Hemorrhoids Hypertension Left inguinal hernia Orthostasis Sinus tachycardia Syncope Urinary retention Home Medications aspirin 81 mg chewable tablet 81 mg PO DAILY@0800 03/17/18 [History Last Taken 04/24/20] lisinopril 10 mg tablet 5 mg PO DAILY htn 03/17/18 [History Last Taken 04/25/20 08:00] multivitamin 1 cap PO DAILY 03/20/20 [History Last Taken Unknown] cephalexin 500 mg capsule 500 mg PO Q12 #14 CAPSULES 06/23/23 [Rx Last Taken Unknown] Allergy/AdvReac Type Severity Reaction Status Date / Time tamsulosin [From Flomax] AdvReac Mild dizzy/faint Verified 03/21/23 09:10 ing Family History Father Hypertension Surgical History History of laparoscopic cholecystectomy History of left inguinal hernia repair (~03/2020) Social History Smoking Status: Former smoker alcohol intake: never substance use type: does not use ROS <Dr. Rico Mg MD - Last Filed: 06/23/23 16:44> ROS ED Constitutional Constitutional ED: Denies chills or fever(s) Eyes Eyes: Denies change in vision or diplopia ENT ENT ED: Denies rhinorrhea or sore throat Cardiovascular Cardiovascular: Denies chest pain or palpitations Respiratory/Chest Respiratory/Chest: Denies cough or dyspnea Gastrointestinal Gastrointestinal: Reports abdominal pain; Denies diarrhea, nausea or vomiting Genitourinary Genitourinary ED: Reports dysuria and hematuria Musculoskeletal Musculoskeletal: Denies back pain or neck pain Integumentary Denies abscess or rash Neurologic Neurologic: Denies headache(s), paresthesias or weakness Psychiatric Psychiatric: Denies anxiety or suicidal thoughts EXAM <Dr. Rico Mg MD - Last Filed: 06/23/23 16:44> Physical Exam Const Vital Signs: 06/23/23 14:30 06/23/23 18:01 06/23/23 19:14 Temperature 97.3 F L Temperature Source Temporal Pulse Rate 100 68 83 Respiratory Rate 22 H 16 16 Blood Pressure 150/83 H 136/68 H 125/71 H Blood Pressure Mean 105 90 89 Pulse Ox 99 98 98 Oxygen Delivery Method Room Air Room Air Room Air Positive well nourished and well developed General Appearance ED: well developed and NAD HEENT Reports moist mucous membranes normocephalic and atraumatic Eyes PERRL and EOMs intact bilaterally Neck full ROM and supple Resp normal respiratory effort and clear to auscultation bilaterally Cardio regular rate, regular rhythm and no murmurs GI non-distended GI Narrative: Suprapubic tenderness without guarding or rebound otherwise benign abdomen Auscultation: normoactive bowel sounds Palpation: soft Narrative: Blood at the urethral meatus otherwise unremarkable genitals. Gross hematuria and specimen cup at bedside. Back/Spine no CVA tenderness General Back: other FROM Extremity normal to inspection General Extremety ED: Negative for edema, pulses abnormal or tenderness General Extremity: Negative for edema or pulses abnormal Neuro oriented x3, CN's II-XII intact bilaterally and no sensory deficits noted Sensorium / Orientation: awake and alert Motor Exam: strength 5/5 throughout Skin no rashes or lesions noted and no wounds <Dr. Hansa Caceres MD - Last Filed: 06/23/23 19:48> Physical Exam Const Vital Signs: 06/23/23 14:30 06/23/23 18:01 06/23/23 19:14 Temperature 97.3 F L Temperature Source Temporal Pulse Rate 100 68 83 Respiratory Rate 22 H 16 16 Blood Pressure 150/83 H 136/68 H 125/71 H Blood Pressure Mean 105 90 89 Pulse Ox 99 98 98 Oxygen Delivery Method Room Air Room Air Room Air MDM <Dr. Rico Mg MD - Last Filed: 06/23/23 16:44> [facility] Narrative Medical decision making narrative: Nurses placed Salinas, this did drain about 500 cc plus of bloody urine, the patient felt much better. Lots of clots came out as well. Labs unremarkable his hemoglobin is stable, we sent him for CT of the abdomen/pelvis. I had nursing irrigate his bladder. They were getting lots of clots out even with a 24 [place] triple-lumen catheter, not able to perform regular CBI, they are manually irrigating. CT results pending, checked out to oncoming ED physician at shift change. Lab Data Attestation: I reviewed the patient's lab results. Labs: Laboratory Results - last 24 hr 06/23/23 06/23/23 15:05 15:30 WBC 8.2 RBC 4.23 L Hgb 11.7 L Hct 37.7 L MCV 89.1 MCH 27.7 MCHC 31.0 L RDW Std Deviation 47.2 H RDW Coeff of Isidoro 14.6 Plt Count 231 MPV 10.7 Immature Gran % (Auto) 1.100 H Neut % (Auto) 52.6 Lymph % (Auto) 25.8 [place] % (Auto) 19.2 H Eos % (Auto) 1.1 Baso % (Auto) 0.2 Absolute Neuts (auto) 4.3 Absolute Lymphs (auto) 2.13 Nucleated RBC % 0 Differential Comment SEE COMMENT Platelet Estimate ADEQUATE RBC Morphology N CHROM Anisocytosis RARE Macrocytosis RARE Sodium 135 L Potassium 4.1 Chloride 106 Carbon Dioxide 23.0 Anion Gap 6 BUN 22 H Creatinine 1.30 Estim Creat Clear Calc 40.79 Est GFR (MDRD) Af Amer 67 Est GFR (MDRD) Non-Af 56 L BUN/Creatinine Ratio 16.9 Glucose 142 H Calcium 8.3 L Urine Color Red Urine Clarity Cloudy Urine pH 6.5 Ur Specific [place] 1.010 Urine Protein 500 H Urine Glucose (UA) Normal Urine Ketones 5 H Urine Occult Blood 250 H Urine Nitrite Negative Urine Bilirubin Negative Urine Urobilinogen Normal Ur Leukocyte Esterase 25 H Urine RBC > 100 SEEN Urine WBC 5-10 SEEN Ur Squamous Epith Cells 0 SEEN Urine Bacteria 0 SEEN Urine Mucus 0 SEEN Radiography Diagnostic Testing: Clinical Impression(s) from Imaging Studies Abdomen/Pelvis CT 06/23/23 15:40 IMPRESSION: 1. No bowel obstruction abscess free fluid or free air. No evidence diverticulitis or appendicitis. 2. No evidence of obstructive uropathy, however Salinas catheter in place, and bladder is filled with heterogeneous material which appears represent blood products/clot and hemorrhage. No acute extravasation of contrast however. 3. Prostate enlargement. 4. Status post cholecystectomy without ductal dilatation. 5. Mesenteric and retroperitoneal adenopathy. Mesenteric adenitis is a consideration. 6. LEFT lower lobe atelectasis pleural thickening and small pleural effusion. Electronically Signed: Humberto Nichols MD at 17:40 EDT , <Dr. Hansa Caceres MD - Last Filed: 06/23/23 19:48> [facility] Lab Data Labs: Laboratory Results - last 24 hr 06/23/23 06/23/23 15:05 15:30 WBC 8.2 RBC 4.23 L Hgb 11.7 L Hct 37.7 L MCV 89.1 MCH 27.7 MCHC 31.0 L RDW Std Deviation 47.2 H RDW Coeff of Isidoro 14.6 Plt Count 231 MPV 10.7 Immature Gran % (Auto) 1.100 H Neut % (Auto) 52.6 Lymph % (Auto) 25.8 [place] % (Auto) 19.2 H Eos % (Auto) 1.1 Baso % (Auto) 0.2 Absolute Neuts (auto) 4.3 Absolute Lymphs (auto) 2.13 Nucleated RBC % 0 Differential Comment SEE COMMENT Platelet Estimate ADEQUATE RBC Morphology N CHROM Anisocytosis RARE Macrocytosis RARE Sodium 135 L Potassium 4.1 Chloride 106 Carbon Dioxide 23.0 Anion Gap 6 BUN 22 H Creatinine 1.30 Estim Creat Clear Calc 40.79 Est GFR (MDRD) Af Amer 67 Est GFR (MDRD) Non-Af 56 L BUN/Creatinine Ratio 16.9 Glucose 142 H Calcium 8.3 L Urine Color Red Urine Clarity Cloudy Urine pH 6.5 Ur Specific [place] 1.010 Urine Protein 500 H Urine Glucose (UA) Normal Urine Ketones 5 H Urine Occult Blood 250 H Urine Nitrite Negative Urine Bilirubin Negative Urine Urobilinogen Normal Ur Leukocyte Esterase 25 H Urine RBC > 100 SEEN Urine WBC 5-10 SEEN Ur Squamous Epith Cells 0 SEEN Urine Bacteria 0 SEEN Urine Mucus 0 SEEN Radiography Diagnostic Testing: Clinical Impression(s) from Imaging Studies Abdomen/Pelvis CT 06/23/23 15:40 IMPRESSION: 1. No bowel obstruction abscess free fluid or free air. No evidence diverticulitis or appendicitis. 2. No evidence of obstructive uropathy, however Salinas catheter in place, and bladder is filled with heterogeneous material which appears represent blood products/clot and hemorrhage. No acute extravasation of contrast however. 3. Prostate enlargement. 4. Status post cholecystectomy without ductal dilatation. 5. Mesenteric and retroperitoneal adenopathy. Mesenteric adenitis is a consideration. 6. LEFT lower lobe atelectasis pleural thickening and small pleural effusion. Electronically Signed: Humberto Nichols MD at 17:40 EDT , Treatment and Re-Evaluation :: Patient signed out to me pending CT reading and recheck after bladder irrigation. CT scan reveals evidence of clot in the bladder. On repeat evaluation patient's irrigation has been turned off. He continues to have moderately red urine draining from his catheter. We discussed potential need for continuous irrigation to clear the clots. We do not have urology available at this time and we discussed transfer to a facility that would have the appropriate physicians to care for him. He is declining this at this time. He wants to be discharged to home with a catheter in place. He understands that it may clot off and he may need to return to the emergency room. Given that he is going home with a catheter I will put him on Keflex twice daily. He is scheduled to see Dr. Salinas next week. I did encourage him to call the office on Tuesday. Patient will sign out AGAINST MEDICAL ADVICE. Discharge Plan Triage Chief Complaint: Complaint ED Provider: Rico Mg Dx/Rx/DC Orders Clinical Impression: Hematuria Instructions: ED Salinas Catheter, Care, ED Hematuria, ED Urinary Retention, Male Prescriptions: New cephalexin 500 mg capsule 500 mg PO Q12 Qty: 14 0RF No Action multivitamin capsule 1 cap PO DAILY aspirin 81 MG tablet,chewable 81 mg PO DAILY@0800 Patient Comments: was not told to stop lisinopril 10 MG tablet 5 mg PO DAILY Primary Care Provider: Tio Solano Referrals: Tio Solano MD [Primary Care Provider] - Anuel Salinas MD [Med Staff - Active Staff] - As soon as possible Disposition Disposition: Against Medical Advice
[2023-06-23 15:26] LABS: Absolute Lymphocyte Count 2.13 X10^3/uL (0.83-4.51); Absolute Neutrophil Count 4.3 X10^3/uL (2.0-7.7); Basophil# 0.02 X10^3/uL; Basophil% 0.2 % (0-1); Eosinophil# 0.09 X10^3/uL; Eosinophils% 1.1 % (0-5); Hematocrit 37.7 % (40-54); Hemoglobin 11.7 g/dL (13.0-16.5); Lymphocyte # 2.13 X10^3/ul (0.83-4.51); Lymphocyte % 25.8 % (19-41); Mean Corpuscular Hgb 27.7 pg (27.0-32.0); Mean Corpuscular Volume 89.1 fL (80-94); Mean Platelet Vol. 10.7 fl (6.2-12.0); Monocyte# 1.58 X10^3/uL; Monocyte% 19.2 % (0-10); NRBC Flagged by Analyzer 0 % (0-5); Neutrophil # 4.33 X10^3/uL (2.7-7.7); Neutrophil % 52.6 % (47-70); POSITIVE DIFFERENTIAL YES; Platelet Count 231 K/mm3 (150-450); RBC Distribution Width CV 14.6 % (11.6-14.6); RBC Distribution Width SD 47.2 fl (35.1-43.9); Red Blood Count 4.23 M/mm3 (4.6-6.2); White Blood Count 8.2 K/mm3 (4.4-11.0)
[2023-06-23] MEDS: Lidocaine Jelly 2% 20 ML Syringe (URO-JET) 1 APPLIC TOPICAL (15:26)
[2023-06-23 15:34] LABS: Differential Indicated SCAN CRITERIA MET
[2023-06-23 15:39] LABS: Anion Gap 6 (5-15); BUN 22 mg/dL (7-18); BUN/Creat Ratio 16.9 RATIO (10-20); Calcium,Total 8.3 mg/dL (8.5-10.1); Chloride 106 mmol/L (98-107); EST Glomerular Filtration Rate 56 mL/min (>60); Est Glom Filt Rate - Afr Amer 67 mL/min (>60); Estimated Creatinine Clearance 40.79 ml/min; Glucose 142 mg/dL (74-106); Potassium 4.1 mmol/L (3.5-5.1); Sodium Level 135 mmol/L (136-145)
--- NOTE | 2023-06-23 15:40 | CT_ITS ---
INDICATION: hematuria EXAMINATION: CT ABDOMEN AND PELVIS with CONTRAST - CT Abdomen And Pelvis W/ Contrast Injection TECHNIQUE: Multiple axial images were obtained of the abdomen and pelvis following administration of IV contrast. Planar reconstructions obtained. A radiation dose optimization technique was used for this scan. RADIATION DOSAGE (If Supplied By Facility): CTDIvol = ( 16.76 ) mGy, DLP = ( 1179.47 ) mGycm IV Contrast dosage and agent: 100 mL Isovue-300 Oral contrast: None. COMPARISON: No pertinent previous studies for comparison.. FINDINGS: LOWER THORAX: LEFT lower lobe atelectasis, pleural thickening and small LEFT effusion. Visualized RIGHT lower lung is clear. Cardiac contour is normal. No coronary vascular calcifications, no pericardial effusion. HEPATOBILIARY: Liver: The liver is homogeneous and shows no evidence of focal lesion. Gallbladder: Not visualized, likely surgically absent. No ductal dilatation. Pancreas: Pancreas is normal size configuration and density. No mass is noted. Spleen: The spleen is homogeneous and normal in size. . BOWEL: Stomach: The stomach is normal in size configuration, no evidence of focal masses, abnormal calcifications. No hiatal hernia noted. Bowel: Small and large have normal configuration, no masses or bowel obstruction noted. Scattered diverticula are present. Appendix: The visualized appendix has normal appearance.: GENITOURINARY: Adrenals: Both adrenal glands are normal in size. Kidneys: Kidneys appear symmetric in size. No calcifications are seen in the collecting system. There is no hydronephrosis or surrounding fluid. Bladder: Salinas catheter is in place. There is heterogeneous material within the bladder which appears to represent blood products and likely blood clot. Pelvic organs: Prostate is large, measuring 6.8 x 6.3 cm. RETROPERITONEUM: Aorta has normal configuration, scattered calcifications are present. LYMPH NODES: Multiple enlarged lymph nodes are present including LEFT periaortic node at the level of the LEFT kidney, measuring approximately 3.0 x 1.6 cm (series 2: Image 47). Additional enlarged lymph nodes present within the root of mesentery the RIGHT lower quadrant, reference node measuring 1.3 x 1.2 cm (series 2: Image 65). Multiple similar smaller size lymph nodes are present in the mesentery in the RIGHT lower quadrant. PERITONEAL CAVITY: No ascites noted ANTERIOR ABDOMINAL WALL: Normal, no hernia identified. BONES AND SOFT TISSUES: Diffuse lumbar spondylosis, marginal osteophytes are present. No acute destructive bony process or fractures noted. OTHER: None CT/Abdomen/Pelvis W IV Cont ONLY IMPRESSION: 1. No bowel obstruction abscess free fluid or free air. No evidence diverticulitis or appendicitis. 2. No evidence of obstructive uropathy, however Salinas catheter in place, and bladder is filled with heterogeneous material which appears represent blood products/clot and hemorrhage. No acute extravasation of contrast however. 3. Prostate enlargement. 4. Status post cholecystectomy without ductal dilatation. 5. Mesenteric and retroperitoneal adenopathy. Mesenteric adenitis is a consideration. 6. LEFT lower lobe atelectasis pleural thickening and small pleural effusion. Electronically Signed: Humberto Nichols MD at 17:40 EDT ,
[2023-06-23 15:57] LABS: Bacteria 0 SEEN /hpf (None Seen); Mucous, Urine 0 SEEN /hpf (<or=2+); Squamous Epithelial Cells - UA 0 SEEN /hpf (0-5)
[2023-06-23 16:07] LABS: Platelet Estimate ADEQUATE (ADEQ); Red Cell Morphology N CHROM NORMAL (NORM C&C)
[2023-06-23 16:07] LABS: Color, Urine Red (Yellow); Glucose, Dipstick Normal (Normal); Ketone-Dipstick 5 mg/dl (Negative); Leukocyte Esterase-Dipstick 25 /ul (Negative); Nitrite-Dipstick Negative (Negative); Occult Blood-Urine 250 /ul (Negative); Protein-Dipstick 500 mg/dl (Negative); Urine Bilirubin Dipstick Negative (Negative); Urine Clarity Cloudy (Clear); Urine Urobilinogen Normal (Normal); Urine pH 6.5 (5.0 - 8.0)
[2023-06-23 16:08] LABS: Anisocytosis RARE; Macrocytosis RARE
[2023-06-23 16:16] LABS: Red Blood Cells-Urine > 100 SEEN /hpf (0-5); White Blood Cells 5-10 SEEN /hpf (0-5)
[2023-06-23 18:01] VITALS: BP 136/68; PULSE 68; RESP 16; O2SAT 98
[2023-06-23 19:14] VITALS: BP 125/71; PULSE 83; RESP 16; O2SAT 98
[2023-06-23 19:53] VITALS: BP 131/78; PULSE 87; RESP 18; O2SAT 98
[2023-06-23] MEDS: Cephalexin 250 MG Capsule 500 MG PO (20:13)
== END 2023-06-23 20:30 | disposition left against medical advice (07) ==
PROVIDERS: Emergency Provider Emergency Medicine; PCP Family Medicine; Visit Provider Emergency Medicine
DX: R31.0 Gross hematuria (principal); I10 Essential (primary) hypertension; R10.30 Lower abdominal pain, unspecified; N40.1 Benign prostatic hyperplasia with lower urinary tract symptoms; R33.8 Other retention of urine; Z79.82 Long term (current) use of aspirin; Z79.899 Other long term (current) drug therapy; Z87.891 Personal history of nicotine dependence
CPT/HCPCS: 51702; 74177; 80048; 81001; 85025; 99285; Q9967; A4216

== ENCOUNTER 2023-06-25 08:43 | Emergency (ER) | payer MEDICARE, SELFPAY ==
[2023-06-25 08:44] VITALS: BP 130/74; PULSE 96; RESP 14; TEMP 36.4; O2SAT 99; BMI 28.7
--- NOTE | 2023-06-25 08:52 | EDS_ITS ---
HPI HPI - Female History of Present Illness Chief Complaint: Salinas C/O PFSH PFSH Medical History Arthritis Bilateral carpal tunnel syndrome Bilateral inguinal hernia BPH (benign prostatic hypertrophy) Dehydration Hemorrhoids Hypertension Left inguinal hernia Orthostasis Sinus tachycardia Syncope Urinary retention Home Medications aspirin 81 mg chewable tablet 81 mg PO DAILY@0800 03/17/18 [History Last Taken 04/24/20] lisinopril 10 mg tablet 5 mg PO DAILY htn 03/17/18 [History Last Taken 04/25/20 08:00] multivitamin 1 cap PO DAILY 03/20/20 [History Last Taken Unknown] cephalexin 500 mg capsule 500 mg PO Q12 #14 CAPSULES 06/23/23 [Rx Last Taken Unknown] cephalexin 500 mg capsule 500 mg PO TID 7 days #21 caps 06/25/23 [Rx Last Taken Unknown] Allergy/AdvReac Type Severity Reaction Status Date / Time tamsulosin [From Flomax] AdvReac Mild dizzy/faint Verified 06/25/23 08:43 ing Family History Father Hypertension Surgical History History of laparoscopic cholecystectomy History of left inguinal hernia repair (~03/2020) Social History Smoking Status: Former smoker alcohol intake: never substance use type: does not use EXAM Physical Exam Const Vital Signs: 06/25/23 08:44 Temperature 97.6 F L Temperature Source Temporal Pulse Rate 96 Respiratory Rate 14 Blood Pressure 130/74 H Blood Pressure Mean 92 Pulse Ox 99 Oxygen Delivery Method Room Air [facility] MDM MDM Narrative Medical decision making narrative: HISTORY OF PRESENT ILLNESS: 87-year-old male here with concern for Salinas catheter malfunction. He states last night his Salinas stopped flowing. States this began approximately 1 PM last night has had minimal urine output since then. Notes bloody urine. Denies any other bleeding diathesis. Denies chest pain, lightheadedness shortness of breath. REVIEW OF SYSTEMS: Pertinent positives: Urinary retention Pertinent negatives: Abdominal pain, vomiting thesis PHYSICAL EXAM: Nursing triage notes reviewed, Vital signs reviewed Constitutional: please see mdm HENT: MMM Eyes: Pupils equal round and reactive to light, Extraocular muscles intact Neck: No stridor, no JVD, full neck ROM Lungs: Clear to auscultation, No wheezing or rales. No increased work of breathing, no conversational dyspnea, no accessory muscle use, no nasal flaring. No respiratory distress noted Heart: Regular rate and rhythm, No murmurs, No rubs and No gallops, 2+ distal pulses (radial, femoral, posterior tibial) in all extremities Abdomen: Soft, there is no tenderness, rigidity, rebound or guarding, no obvious peritoneal signs, no palpable pulsatile abdominal masses, no auscultated abdominal bruit : No CVAT Extremities: No edema Neuro: No focal neurological deficits, cranial nerves II through XII intact, 5/5 strength in all extremities. Intact sensation to light touch in all extremities, 2+ reflexes bilateral patella tendons. Normal gait. No ataxia. Skin: No rash or lesions noted MEDICAL DECISION MAKING: Chief Complaint: Salinas catheter complaint External records reviewed: Prior ED visit reviewed: Seen on 06/23/2023 for hematuria. Had a Salinas placed at that time which drained 500 cc of bloody urine, hemoglobin was stable, bladder was irrigated. 24 Swiss triple-lumen cath was placed. Noted irrigation was attempted however this was complicated. There was no urology on-call. Patient was offered transfer however he refused and left AGAINST MEDICAL ADVICE Factors affecting care: Hypertension Social determinants of health: Elderly History obtained from others: none Consults: none ALL IMAGES (IF OBTAINED) HAVE BEEN PERSONALLY REVIEWED AND INTERPRETED BY MYSELF. [facility] Narrative: Patient was hemodynamically stable, afebrile, nontoxic-appearing. No obvious blood at urethral meatus although patient had a Salinas bag full of about 100 cc of bloody urine I considered the following differential diagnosis: Urinary tension, UTI, anemia, FARIDA We replace patient's Salinas with a three-way Salinas for continuous bladder irrigation. Did obtain a CBC to rule out significant anemia BMP to rule out significant Kidney dysfunction. Labs were remarkable for no evidence of severe anemia or acute kidney injury. Patient was irrigated with clearing of urine. Will give Keflex for prophylactic antimicrobial care. Patient is already scheduled appoint with urology as an outpatient. Strict return precautions were discussed. The patient and/or family, caregivers express understanding. The patient and/or family, caregivers agrees with the plan. Shared decision making: I will have a discussion with the patient and or visitors regarding risk/benefits of further testing or admission. They will be made aware of of the risk/benefits inherent in this decision they will be given the opportunity to voice understanding. Total critical care time today provided was at least 0 minutes. This excludes separately billable procedures. Critical care time (if documented) is secondary to the patient having high probability of clinically significant/life threatening deterioration in the patient's condition which required my urgent intervention. Lab Data Attestation: I reviewed the patient's lab results. Lab results narrative: CBC with leukocytosis suggestive of systemic inflammation, stable anemia, no thrombocytopenia BMP with stable creatinine, no FARIDA, no significant electrode abnormalities Labs: Laboratory Results - last 24 hr 06/25/23 09:35 WBC 12.7 H RBC 4.31 L Hgb 11.8 L Hct 38.6 L MCV 89.6 MCH 27.4 MCHC 30.6 L RDW Std Deviation 48.5 H RDW Coeff of Isidoro 14.6 Plt Count 271 MPV 10.6 Immature Gran % (Auto) 1.800 H Neut % (Auto) 67.2 Lymph % (Auto) 13.4 L Ingham % (Auto) 16.4 H Eos % (Auto) 1.0 Baso % (Auto) 0.2 Absolute Neuts (auto) 8.5 H Absolute Lymphs (auto) 1.70 Nucleated RBC % 0 Differential Comment S Diff Path Review May foll Sodium 138 Potassium 4.2 Chloride 109 H Carbon Dioxide 23.0 Anion Gap 6 BUN 22 H Creatinine 1.35 H Estim Creat Clear Calc 39.28 Est GFR (MDRD) Af Amer 64 Est GFR (MDRD) Non-Af 53 L BUN/Creatinine Ratio 16.3 Glucose 165 H Calcium 8.6 Discharge Plan Triage Chief Complaint: Salinas C/O ED Provider: Jaspal Espitia Dx/Rx/DC Orders Clinical Impression: Hematuria, Urinary retention Instructions: ED Hematuria Prescriptions: New cephalexin 500 mg capsule 500 mg PO TID 7 Days Qty: 21 0RF No Action multivitamin capsule 1 cap PO DAILY aspirin 81 MG tablet,chewable 81 mg PO DAILY@0800 Patient Comments: was not told to stop lisinopril 10 MG tablet 5 mg PO DAILY cephalexin 500 mg capsule 500 mg PO Q12 Qty: 14 0RF Primary Care Provider: Tio Solano Referrals: Tio Solano MD [Primary Care Provider] - Activity Restrictions/Additional Instructions: Thank you for trusting us with your care today! Please take Tylenol (2 pills, 650 mg), ibuprofen (2 pills, 400 mg) every 6 hours as needed for pain and fever control. Please return to the emergency department if your symptoms change or worsen. Specifically if you notice decreased urine output from your Salinas. If you lose consciousness develop weakness or fatigue or chest pain. Please follow with your urology for further outpatient evaluation and management. Disposition Disposition: Home, Self Care
[2023-06-25 09:42] LABS: Absolute Neutrophil Count 8.5 X10^3/uL (2.0-7.7); Basophil# 0.02 X10^3/uL; Basophil% 0.2 % (0-1); Eosinophil# 0.13 X10^3/uL; Hematocrit 38.6 % (40-54); Hemoglobin 11.8 g/dL (13.0-16.5); Lymphocyte % 13.4 % (19-41); Mean Corp Hgb Conc 30.6 g/dL (32-36); Mean Corpuscular Hgb 27.4 pg (27.0-32.0); Mean Corpuscular Volume 89.6 fL (80-94); Mean Platelet Vol. 10.6 fl (6.2-12.0); Monocyte# 2.08 X10^3/uL; Monocyte% 16.4 % (0-10); NRBC Flagged by Analyzer 0 % (0-5); Neutrophil % 67.2 % (47-70); POSITIVE DIFFERENTIAL YES; Platelet Count 271 K/mm3 (150-450); RBC Distribution Width CV 14.6 % (11.6-14.6); RBC Distribution Width SD 48.5 fl (35.1-43.9); Red Blood Count 4.31 M/mm3 (4.6-6.2); White Blood Count 12.7 K/mm3 (4.4-11.0)
[2023-06-25 09:43] LABS: Differential Indicated SCAN CRITERIA MET
--- NOTE | 2023-06-25 09:51 | ED.RN ---
inital black/dark red in catheter. manually flushed with 60cc ns. place on continuous irrigation. flowing light pink to clear
[2023-06-25 09:55] LABS: Anion Gap 6 (5-15); BUN 22 mg/dL (7-18); BUN/Creat Ratio 16.3 RATIO (10-20); Calcium,Total 8.6 mg/dL (8.5-10.1); Chloride 109 mmol/L (98-107); Creatinine, Serum 1.35 mg/dL (0.70-1.30); EST Glomerular Filtration Rate 53 mL/min (>60); Est Glom Filt Rate - Afr Amer 64 mL/min (>60); Estimated Creatinine Clearance 39.28 ml/min; Glucose 165 mg/dL (74-106); Potassium 4.2 mmol/L (3.5-5.1); Sodium Level 138 mmol/L (136-145)
[2023-06-25 10:08] LABS: Differential Comment S
[2023-06-25 10:52] VITALS: BP 117/67; PULSE 87; RESP 16; O2SAT 99
[2023-06-27 13:20] LABS: Pathologist Review Reviewed
== END 2023-06-25 10:58 | disposition home or self-care (01) ==
PROVIDERS: Emergency Provider Emergency Medicine; PCP Family Medicine; Visit Provider Emergency Medicine
DX: R31.9 Hematuria, unspecified (principal); N40.1 Benign prostatic hyperplasia with lower urinary tract symptoms; R33.8 Other retention of urine; I10 Essential (primary) hypertension; Z79.82 Long term (current) use of aspirin; Z79.899 Other long term (current) drug therapy; Z87.891 Personal history of nicotine dependence
CPT/HCPCS: 80048; 85025; 99282; A4216

== ENCOUNTER 2023-06-25 14:15 | Emergency (ER) | payer MEDICARE, SELFPAY ==
[2023-06-25 14:16] VITALS: BP 134/69; PULSE 97; RESP 18; TEMP 36.5; O2SAT 98; BMI 28.5
--- NOTE | 2023-06-25 14:35 | EDS_ITS ---
HPI HPI - Female History of Present Illness Chief Complaint: Anderson C/O PFSH PFSH Medical History Arthritis Bilateral carpal tunnel syndrome Bilateral inguinal hernia BPH (benign prostatic hypertrophy) Dehydration Hemorrhoids Hypertension Left inguinal hernia Orthostasis Sinus tachycardia Syncope Urinary retention Home Medications aspirin 81 mg chewable tablet 81 mg PO DAILY@0800 03/17/18 [History Last Taken 04/24/20] lisinopril 10 mg tablet 5 mg PO DAILY htn 03/17/18 [History Last Taken 04/25/20 08:00] multivitamin 1 cap PO DAILY 03/20/20 [History Last Taken Unknown] cephalexin 500 mg capsule 500 mg PO Q12 #14 CAPSULES 06/23/23 [Rx Last Taken Unknown] cephalexin 500 mg capsule 500 mg PO TID 7 days #21 caps 06/25/23 [Rx Last Taken Unknown] Allergy/AdvReac Type Severity Reaction Status Date / Time tamsulosin [From Flomax] AdvReac Mild dizzy/faint Verified 06/25/23 08:43 ing Family History Father Hypertension Surgical History History of laparoscopic cholecystectomy History of left inguinal hernia repair (~03/2020) Social History Smoking Status: Former smoker alcohol intake: never substance use type: does not use EXAM Physical Exam Const Vital Signs: 06/25/23 14:16 Temperature 97.7 F L Temperature Source Temporal Pulse Rate 97 Respiratory Rate 18 Blood Pressure 134/69 H Blood Pressure Mean 90 Pulse Ox 98 Oxygen Delivery Method Room Air MDM MDM MDM Narrative Medical decision making narrative: HISTORY OF PRESENT ILLNESS: 87-year-old male here for occluded urinary catheter. The second visit today he states he went home and tried to drink some water he noted his catheter not draining he does note leakage of fluid around his catheter. REVIEW OF SYSTEMS: Pertinent positives: Urinary retention, leaking around Anderson catheter site Pertinent negatives: Vomiting PHYSICAL EXAM: Nursing triage notes reviewed, Vital signs reviewed Constitutional: please see mdm HENT: MMM Eyes: Pupils equal round and reactive to light, Extraocular muscles intact Neck: No stridor, no JVD, full neck ROM Lungs: Clear to auscultation, No wheezing or rales. No increased work of breathing, no conversational dyspnea, no accessory muscle use, no nasal flaring. No respiratory distress noted Heart: Regular rate and rhythm, No murmurs, No rubs and No gallops, 2+ distal pulses (radial, femoral, posterior tibial) in all extremities Abdomen: Soft, there is no tenderness, rigidity, rebound or guarding, no obvious peritoneal signs, no palpable pulsatile abdominal masses, no auscultated abdominal bruit : No CVAT Extremities: No edema Neuro: No focal neurological deficits, cranial nerves II through XII intact, 5/5 strength in all extremities. Intact sensation to light touch in all extremities, 2+ reflexes bilateral patella tendons. Normal gait. No ataxia. Skin: No rash or lesions noted MEDICAL DECISION MAKING: Chief Complaint: Leaking around Anderson catheter site External records reviewed: Prior imaging studies reviewed, CT scan from 06/23/2023 shows no evidence of obstructive uropathy, there is a Anderson catheter, there is heterogenous material which appears represent blood products clot or hemorrhage. Factors affecting care: Hematuria Social determinants of health: Elderly History obtained from others: Patient's family Consults: n urology ALL IMAGES (IF OBTAINED) HAVE BEEN PERSONALLY REVIEWED AND INTERPRETED BY MYSELF. MDM Narrative: Patient was hemodynamically stable, afebrile, [id number]. Exam without peritoneal signs. noted bleeding from anderson. Will initiate bladder irrigation. Labs from earlier today showed no evidence of acute kidney injury or significant anemia. We do not have urology on-call and as such patient will require transfer for urgent and definitive urologic evaluation Discussed case with Dr. Valenzuela at [facility] who excepted the patient in transfer. Patient signed out to p.m. physician awaiting transfer. The patient and/or family, caregivers express understanding. The patient and/or family, caregivers agrees with the plan. Shared decision making: I will have a discussion with the patient and or visitors regarding risk/benefits of further testing or admission. They will be made aware of of the risk/benefits inherent in this decision they will be given the opportunity to voice understanding. Total critical care time today provided was at least 0 minutes. This excludes separately billable procedures. Critical care time (if documented) is secondary to the patient having high probability of clinically significant/life threatening deterioration in the patient's condition which required my urgent intervention. Discharge Plan Triage Chief Complaint: Anderson C/O ED Provider: Jaspal Espitia Dx/Rx/DC Orders Prescriptions: No Action multivitamin capsule 1 cap PO DAILY aspirin 81 MG tablet,chewable 81 mg PO DAILY@0800 Patient Comments: was not told to stop lisinopril 10 MG tablet 5 mg PO DAILY cephalexin 500 mg capsule 500 mg PO Q12 Qty: 14 0RF cephalexin 500 mg capsule 500 mg PO TID 7 Days Qty: 21 0RF Primary Care Provider: Tio Solano Referrals: Tio Solano MD [Primary Care Provider] -
--- NOTE | 2023-06-25 17:44 | NURSING ---
CALLED TO SET UP TRANSPORT WITH PHYSICIANS TO [facility] GIVEN [phone] (3 HOURS).
[2023-06-25 19:04] VITALS: BP 110/57; PULSE 79; RESP 18; O2SAT 96
[2023-06-25 19:56] VITALS: BP 112/49; PULSE 79; RESP 18; O2SAT 98
[2023-06-25 20:52] VITALS: BP 121/53
--- NOTE | 2023-06-25 21:16 | ED.RN ---
Report called to Domitila MARTINEZ at [facility].
== END 2023-06-25 21:54 | disposition short-term general hospital (02) ==
PROVIDERS: Emergency Provider Emergency Medicine; PCP Family Medicine; Visit Provider Emergency Medicine
DX: T83.031A Leakage of indwelling urethral catheter, initial encounter (principal); R31.9 Hematuria, unspecified; I10 Essential (primary) hypertension; Z79.82 Long term (current) use of aspirin; Z79.899 Other long term (current) drug therapy; Z87.891 Personal history of nicotine dependence
CPT/HCPCS: 99284; A4216

== ENCOUNTER → 2024-04-18 | Outpatient (CLI) | payer MEDICARE, SELFPAY ==
[2024-04-18 18:08] LABS: Hemoglobin A1c 4.8 % (3.8-5.6)
== END | disposition home or self-care (01) ==
LOC: MFPLAB 16:03
PROVIDERS: PCP Family Medicine; Visit Provider Family Medicine
DX: R73.03 Prediabetes (principal)
CPT/HCPCS: 36415; 83036

== ENCOUNTER → 2024-05-15 | Outpatient (CLI) | payer MEDICARE, SELFPAY ==
--- NOTE | 2024-05-15 15:42 | VDLE_ITS ---
Reason For Study: edema RIGHT LEFT CFV is compressible, spontaneous, competent CFV is compressible, spontaneous, competent, and demonstrates pulsatile venous flow. and demonstrates pulsatile venous flow. Procedure FV is compressible, spontaneous, competent This is a venous duplex using B-mode, color and demonstrates pulsatile venous flow. flow and spectral Doppler. POP V is compressible, spontaneous, competent Exam performed in department. and demonstrates pulsatile venous flow. The exam was diagnostic. T/P Trunk is compressible. A preliminary report was called and/or faxed PTV is compressible. to Dr. Solano. LT PerV is compressible. GSV is normal. Hypoechoic area behing the knee measuring 1.42 x 3.66 cm. Area is nonvascular. Hypoechoic area in the mid thigh measuring 1.59 x 2.12 cm. Area is nonvascular. VL/Venous Duplex US, Unilateral Interpretation Summary Deep veins of the left lower extremity are patent and compressible segmentally. There is no evidence of left lower extremity deep vein thrombosis. The left great saphenous vein kiel ears patent and compressible segmentally. Hypoechoic area behing the knee measuring 1.42 x 3.66 cm. Area is nonvascular. Hypoechoic area in the mid thigh measuring 1.59 x 2.12 cm. Area is nonvascular. Ordering Physician: Tio Solano Referring Physician: Tio Solano Performed By: Rod Burton, RVT
== END | disposition home or self-care (01) ==
LOC: CVS 15:40
PROVIDERS: PCP Family Medicine; Referring Provider Family Medicine; Visit Provider Family Medicine
DX: R60.0 Localized edema (principal); M79.652 Pain in left thigh
CPT/HCPCS: 93971

== ENCOUNTER 2024-07-18 17:25 | Inpatient (IN) | payer MEDICARE, SELFPAY ==
[2024-07-18] VITALS (7 sets, daily range): BP systolic 116–132; BP diastolic 56–82; PULSE 91–102; RESP 16–20; TEMP 36.2–36.9; O2SAT 94–97; BMI 25.5; BMI 24.5
--- NOTE | 2024-07-18 18:20 | EKG12_ITS ---
Test Reason : ABN LABS Blood Pressure : / mmHG Vent. Rate : 099 BPM Atrial Rate : 099 BPM P-R Int : 156 ms QRS Dur : 094 ms QT Int : 314 ms P-R-T Axes : 030 -31 107 degrees QTc Int : 402 ms Sinus rhythm with frequent Premature ventricular complexes Left axis deviation Inferior infarct , age undetermined Cannot rule out Anterior infarct , age undetermined Abnormal ECG Confirmed by JAZMIN NICHOLS MD ([id number]), web content editor SPEEDY PEMBERTON ([id number]) on 07/20/2024 7:58:45 AM Referred By: SUDHIR/JUAN Confirmed By:JAZMIN NICHOLS MD
--- NOTE | 2024-07-18 18:21 | EDS_ITS ---
HPI History of Present Illness Chief Complaint: Fatigue Detail of Chief Complaint: Weakness/fatigue Informant: patient and family Narrative Narrative: Patient presents to the emergency department with complaint of generalized weakness and fatigue has been going on for about 4 to 5 days. Patient states that he was seen by his primary care physician in the office today and had some blood work. They were then called and told that they would need to follow-up with a dictaphone mechanic as he had elevated white blood cell count and platelet counts. Patient then was called back 3 hours later and they were told that they needed to come to the emergency department because he might be in renal failure as well. Patient states has been eating and drinking normally. He thinks he is urinating normally. Patient has lost about 10 to 15 pounds since May. He denies any night sweats. He denies recent illness. He denies chest pain or shortness of breath. He denies abdominal pain. [facility] Medical History Arthritis Bilateral carpal tunnel syndrome Bilateral inguinal hernia BPH (benign prostatic hypertrophy) Dehydration Hemorrhoids Hypertension Left inguinal hernia Orthostasis Sinus tachycardia Syncope Urinary retention Home Medications ?Medication ?Instructions ?Recorded ?Last Taken ?Type multivitamin 1 cap PO DAILY 03/20/20 Unknown History Allergy/AdvReac Type Severity Reaction Status Date / Time tamsulosin (From Flomax) AdvReac Mild dizzy/faint Verified 07/18/24 17:25 ing Family History Father Hypertension Surgical History History of laparoscopic cholecystectomy History of left inguinal hernia repair (~03/2020) Social History Smoking Status: Former smoker alcohol intake: never substance use type: does not use ROS ROS ED Review of Systems ROS Unobtainable: other Constitutional Constitutional ED: Reports lethargy; Denies chills, fever(s), sweats or weight loss Eyes Eyes: Denies blurry vision, change in vision or diplopia ENT ENT ED: Denies rhinorrhea or sore throat Cardiovascular Cardiovascular: Denies chest pain, orthopnea or racing heartbeat Respiratory/Chest Respiratory/Chest: Denies cough, dyspnea, dyspnea on exertion, orthopnea or sputum Gastrointestinal Gastrointestinal: Denies abdominal pain, diarrhea, nausea or vomiting Genitourinary Genitourinary ED: Denies dysuria, hematuria or urinary frequency Musculoskeletal Musculoskeletal: Denies arthralgias, back pain, myalgias or neck pain Integumentary Denies abscess, Abrasions or rash Neurologic Neurologic: Reports weakness; Denies headache(s) Psychiatric Psychiatric: Denies anxiety, depression or suicidal thoughts Endocrine Endocrinology: Denies polydipsia, polyphagia or polyuria Hematologic/Lymphatic Hematologic/Lymphatic: Denies easy bleeding, easy bruising or lymphadenopathy Allergic/Immunologic Allergic/Immunologic ED: Denies mouth swelling, tongue swelling or urticaria EXAM Physical Exam Const Vital Signs: 07/18/24 17:25 07/18/24 17:25 07/18/24 17:52 Temperature 97.2 F L 97.8 F Temperature Source Temporal Temporal Pulse Rate 102 H 99 Respiratory Rate 20 H 18 Respiratory Effort Normal Respiratory Pattern Normal Blood Pressure 132/82 H 127/66 H Blood Pressure Mean 98 86 Pulse Ox 97 97 Oxygen Delivery Method Room Air Room Air 07/18/24 18:28 Temperature 97.6 F L Temperature Source Temporal Pulse Rate 99 Respiratory Rate 16 Respiratory Effort Respiratory Pattern Blood Pressure 116/56 L Blood Pressure Mean 76 Pulse Ox 96 Oxygen Delivery Method Room Air Positive well nourished and well developed General Appearance ED: well developed and NAD HEENT Reports TM's clear and moist mucous membranes normocephalic and atraumatic; Negative for trauma or tenderness Tympanic Membrane ED: Yes TM's clear Eyes PERRL and EOMs intact bilaterally General Eye ED: Negative for pale conjunctiva or scleral icterus Neck no lymphadenopathy, supple and no JVD General: Negative for tenderness Chest Wall inspection of chest normal and palpation of chest normal Chest: Negative for tenderness Resp normal respiratory effort and clear to auscultation bilaterally Effort and Inspection: Negative for respiratory distress or pain with movement Auscultation: Negative for rhonchi, wheezes or diminished lung sounds Cardio regular rate, regular rhythm, S1 normal heart sound, S2 normal heart sound and no murmurs Peripheral Pulses: pulses 2+ throughout GI normal to inspection, nondistended, normoactive bowel sounds, soft to palpation, non-tender, non-distended and no masses Back/Spine no CVA tenderness and no thoracic nor lumbar tenderness Extremity normal to inspection General Extremety ED: Negative for edema General Extremity: Negative for edema Neuro oriented x3, CN's II-XII intact bilaterally, no sensory deficits noted and gait normal Sensorium / Orientation: awake, alert, oriented to person, oriented to place and oriented to time Motor Exam: strength 5/5 throughout and strength abnormal Psych mental status grossly normal Skin no rashes or lesions noted and no wounds MDM MDM MDM Narrative Medical decision making narrative: Patient presents to the emergency department at request of his primary care physician to be evaluated for admission for possible renal failure and possible leukemia. Patient only complaint is fatigue. Reviewed his lab work from this morning and does have an elevated WBC count of 192,000 and with platelet count of 849. Chemistries were unremarkable. BUN was 61 and creatinine 3.47. LFTs unremarkable other than a slightly elevated alkaline phosphatase of 400. His troponin was normal at 18. TSH was normal at 1.8. Patient was given normal saline here. Urinalysis ordered and pending. Will discuss case with hospitalist to evaluate patient for admission. I did do a chest x-ray that showed a small left pleural effusion with left rib fractures of uncertain age. Lab Data Attestation: I reviewed the patient's lab results. Labs: Laboratory Results - last 24 hr 07/18/24 07/18/24 17:55 18:37 Lactic Acid 1.7 Troponin I High Sens 18 Radiography Diagnostic Testing: Clinical Impression(s) from Imaging Studies Chest X-Ray 07/18/24 18:28 IMPRESSION: Small left pleural effusion. Left rib fractures of uncertain age. Electronically Signed: Rico Davis MD at 18:53 EDT , 1 view chest x-ray obtained interpreted by myself as small left pleural effusion otherwise no acute findings. Radiology was in agreement also felt there were some left rib fractures of uncertain age. EKG Initial EKG: Attestation: I personally reviewed and interpreted this EKG as follows: Comments: Sinus rhythm with rate of [address] changes and occasional PVCs Discharge Plan Dx/Rx/DC Orders Clinical Impression: Leukocytosis, Thrombocytosis, Renal insufficiency Disposition Disposition: [facility]
--- NOTE | 2024-07-18 18:28 | RAD_ITS ---
STUDY: X-RAY CHEST REASON FOR EXAM: Male, 89 years old. Weakness TECHNIQUE: Single AP portable view of the chest. COMPARISON: August 11, 2016 FINDINGS: There are monitoring devices. The lungs are clear and expanded. There is small left pleural effusion. Normal size heart. Normal mediastinum and gus. Normal visualized pulmonary arteries. Normal visualized aortic arch and descending thoracic aorta. Normal visualized thoracic spine. There are left rib fractures of uncertain age. There is no demonstrated abnormality of the visualized soft tissue structures of the upper abdomen. RAD/Chest 1 View (Portable) IMPRESSION: Small left pleural effusion. Left rib fractures of uncertain age. Electronically Signed: Rico Davis MD at 18:53 EDT ,
[2024-07-18 18:32] LABS: Mucous, Urine 0 SEEN /hpf (<or=2+)
[2024-07-18] MEDS: 0.9% Normal Saline (1000mL) 1,000 ML 150 ML IV (18:36)
[2024-07-18] MEDS: 0.9% Normal Saline (500mL Bag) 500 ML 1000 ML IV (18:36)
[2024-07-18 18:50] LABS: Color, Urine Yellow (Yellow); Glucose, Dipstick Normal (Normal); Ketone-Dipstick Negative (Negative); Leukocyte Esterase-Dipstick 500 /ul (Negative); Nitrite-Dipstick Negative (Negative); Occult Blood-Urine 250 /ul (Negative); Protein-Dipstick 30 mg/dl (Negative); Urine Bilirubin Dipstick Negative (Negative); Urine Clarity Sl. Cloudy (Clear); Urine Urobilinogen Normal (Normal)
[2024-07-18 18:57] LABS: Troponin-I HS 18 pg/mL (3.0-78.0)
[2024-07-18 19:16] LABS: Lactic Acid 1.7 mmol/L (0.4-1.9)
--- NOTE | 2024-07-18 19:26 | PCM.HP.STD ---
[facility] - General General Date of Admission: 07/18/24 Date of Service: 07/18/24 Chief Complaint: Abnormal Labs with FARIDA, WBC 192K and Platelet Count 849K. HPI Narrative BRAD OLIVIA, is a 89 M with a past medical history of essential hypertension, former history of tobacco abuse, history of syncope, BPH; with history of urinary retention, history of COVID-19, history of bilateral inguinal hernia; s/p Left inguinal hernia repair (2019), history of laparoscopic cholecystectomy and OA who presents to [facility] ER complaining of being told he had abnormal labs by his PCP who sent him in here for further evaluation and treatment. Mr. Olivia report his symptoms began approximately 4-5 days prior to admission with generalized weakness and fatigue. After his abnormal labs were reported with critical leukocytosis of 192K and htdnrrof-to-zszizw thrombocytopenia he was informed he would need an urgent evaluation by a insurance coder. 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 He admits to associated lethargy and generalized weakness but he denies related fever, chills, nausea, vomiting, night sweats, weight loss, visual changes, chest pain, SOB or headache. He was then admitted to the PCU for ongoing care for a stay that is expected to extend beyond 2 midnights. [facility] Medical History Bilateral carpal tunnel syndrome Urinary retention Bilateral inguinal hernia Hemorrhoids Arthritis Left inguinal hernia BPH (benign prostatic hypertrophy) Dehydration Sinus tachycardia Orthostasis Syncope Hypertension Home Medications ?Medication ?Instructions ?Recorded ?Last Taken ?Type multivitamin 1 cap PO DAILY supplement 03/20/20 07/18/24 History Allergy/AdvReac Type Severity Reaction Status Date / Time tamsulosin (From Flomax) AdvReac Mild dizzy/faint Verified 07/18/24 17:25 ing Family History Father Hypertension Surgical History History of left inguinal hernia repair (~03/2020) History of laparoscopic cholecystectomy Social History Smoking Status: Former smoker alcohol intake: never substance use type: does not use ROS ROS Narrative Review of Systems: General: Patient admits to lethargy but he denies fever, chills, sweats or weight loss. HENT: Denies headache, denies stuffy nose, denies sore throat EYES: Denies changes in vision or discharge from eyes. Resp: Denies cough, denies shortness of breath Cardiac: Denies chest pain, palpitations or heart racing. GI: Denies abdominal pain, denies changes in bowel, denies nausea or vomiting. : Denies changes in urination Extremity: Denies swelling Musculoskeletal: Feels somewhat generally weak and unwell Neuro: Patient admits to generalized weakness but denies headache or paresthesias. Heme: Denies any bleeding or bruising Skin: Denies rashes Psychiatric: No complaints voiced related to uncontrolled depression or anxiety. Endocrine: No polyuria, polydipsia or polyphagia. The rest of the 14 point ROS was negative except for positives in HPI. Vital Signs Vital Signs Vital Signs: 07/18/24 17:25 07/18/24 17:25 07/18/24 17:52 Temperature 97.2 F L 97.8 F Temperature Source Temporal Temporal Pulse Rate 102 H 99 Respiratory Rate 20 H 18 Respiratory Effort Normal Respiratory Pattern Normal Blood Pressure 132/82 H 127/66 H Blood Pressure Mean 98 86 Pulse Ox 97 97 Oxygen Delivery Method Room Air Room Air 07/18/24 18:28 Temperature 97.6 F L Temperature Source Temporal Pulse Rate 99 Respiratory Rate 16 Respiratory Effort Respiratory Pattern Blood Pressure 116/56 L Blood Pressure Mean 76 Pulse Ox 96 Oxygen Delivery Method Room Air Weight Weight: 172 lb 13.478 oz Body Mass Index (BMI) 25.5 Physical Exam Const alert, oriented x3, no apparent distress, average body habitus and healthy appearing General Appearance: cooperative HEENT normocephalic, head/scalp atraumatic, hearing grossly normal bilaterally and moist oral mucous membranes Eyes PERRL and EOMs intact bilaterally Neck no lymphadenopathy and supple Resp normal respiratory effort, no retractions, no use of accessory muscles and clear to auscultation bilaterally Cardio regular rate and regular rhythm GI normal to inspection, nondistended, normoactive bowel sounds, soft to palpation, non-tender and non-distended Extremity normal to inspection, full ROM and no clubbing, cyanosis or edema Skin Skin Narrative: Patient has no evidence of rash, abscess or jaundice. Neuro oriented x3, CN's II-XII intact bilaterally, moves all extremities and no focal motor deficits Sensorium / Orientation: awake, alert, oriented to person, oriented to place and oriented to time Speech: speech normal Psych affect normal Results Medical Records Data Attestation: I reviewed the patient's medical records Lab / Micro Data Attestation: I reviewed the patient's lab results. Labs: Laboratory Results - last 24 hr 07/18/24 17:55: Troponin I High Sens 18 07/18/24 18:37: Lactic Acid 1.7 Micro: Microbiology 07/18/24 17:55 Mucosa - Nasopharyngeal SARS-CoV-2, Influenza & RSV (PCR) - Final Imaging Radiology Impression Chest X-Ray 07/18/24 18:28 IMPRESSION: Small left pleural effusion. Left rib fractures of uncertain age. Electronically Signed: Rico Davis MD at 18:53 EDT , Assessment & Plan Assessment/Plan (1) Leukocytosis: QUALIFIERS: Leukocytosis type: unspecified Qualified Code(s): D72.829 - Elevated white blood cell count, unspecified (2) Thrombocytosis: (3) FARIDA (acute kidney injury): (4) BPH (benign prostatic hypertrophy): QUALIFIERS: Lower urinary tract symptom detail: unspecified Lower urinary tract symptom presence: symptoms present Qualified Code(s): N40.1 - Benign prostatic hyperplasia with lower urinary tract symptoms (5) History of urinary retention: (6) Generalized weakness: (7) Fatigue: QUALIFIERS: Fatigue type: unspecified Qualified Code(s): R53.83 - Other fatigue PLAN: Plan 1. Critical leukocytosis of 192K and [id number] thrombocytopenia of 849K present on admission concerning for acute leukemia - Admit to PCU. Check CBC to follow trend. Finally, we will consult hematology to see this patient on-rounds in the AM for further recommendations with help appreciated in advance. 2. 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 3. Generalized Weakness and Fatigue arising from #1 & #2 - PT/OT and Case Management to consult and treat in the AM on-rounds with help appreciated in advance. 4. Former history of Tobacco Abuse increasing the likelihood of underlying malignancy underlying #1 - Noted. 5. Essential hypertension - Continue home regimen as previous plus give prn IV Hydralazine for systolic blood pressure > 160 mmHg. 6. History of syncope - Noted. 7. History of COVID-19 - Noted. 8. History of bilateral inguinal hernia; s/p Left inguinal hernia repair (2019) - Noted. 9. History of laparoscopic cholecystectomy - Noted. 10 OA - Give Tylenol prn. 11. DVT prophylaxis - Lovenox 40 mg sq daily plus SCD's. Total time: Approximately 55 minutes. Charges/Coding Visit Charges Inpatient E&M: 15590 Init Hosp L2
[2024-07-18 19:29] LABS: White Blood Cells 25-50 SEEN /hpf (0-5)
[2024-07-18 19:30] LABS: Hyaline Cast 0-5 SEEN /lpf (0-5); Squamous Epithelial Cells - UA 0-5 SEEN /hpf (0-5)
[2024-07-18 19:32] LABS: Bacteria 3+ /hpf (None Seen)
[2024-07-18 19:33] LABS: Red Blood Cells-Urine 5-10 SEEN /hpf (0-5)
[2024-07-18] MEDS: 0.9% Normal Saline (1000mL) 1,000 ML 70 ML IV (21:30)
[2024-07-19 03:20] VITALS: BP 128/61; PULSE 51; RESP 16; TEMP 36.2; O2SAT 94
[2024-07-19 03:36] VITALS: BMI 24.5
[2024-07-19] MEDS: Ceftriaxone 1 GM/50 ML BAG IV (06:05)
[2024-07-19 06:42] LABS: Hematocrit 34.7 % (40-54); Hemoglobin 9.3 g/dL (13.0-16.5); Mean Corp Hgb Conc 26.8 g/dL (32-36); Mean Corpuscular Hgb 20.9 pg (27.0-32.0); Mean Corpuscular Volume 78.2 fL (80-94); Mean Platelet Vol. 11.1 fl (6.2-12.0); POSITIVE COUNT YES; POSITIVE DIFFERENTIAL YES; POSITIVE MORPHOLOGY YES; Platelet Count 713 K/mm3 (150-450); RBC Distribution Width CV 24.2 % (11.6-14.6); RBC Distribution Width SD 62.5 fl (35.1-43.9); Red Blood Count 4.44 M/mm3 (4.6-6.2)
[2024-07-19 06:54] LABS: Differential Indicated MANUAL DIFF; White Blood Count 167.4 K/mm3 (4.4-11.0)
[2024-07-19 07:36] LABS: ALB/GLOB Ratio 0.9 RATIO (0.9-2.4); AST(SGOT) 22 U/L (15-37); Alanine Aminotransfer ALT/SGPT 22 U/L (16-61); Albumin, Serum 2.7 g/dL (3.2-5.0); Alkaline Phosphatase 307 U/L (45-117); Anion Gap 9 (5-15); BUN 55 mg/dL (7-18); BUN/Creat Ratio 22.1 RATIO (10-20); Calcium,Total 8.6 mg/dL (8.5-10.1); Chloride 116 mmol/L (98-107); Creatinine, Serum 2.49 mg/dL (0.70-1.30); EST Glomerular Filtration Rate 26 mL/min (>60); Est Glom Filt Rate - Afr Amer 32 mL/min (>60); Estimated Creatinine Clearance 19.84 ml/min; Globulin 2.9 g/dL (2.2-4.2); Glucose 109 mg/dL (74-106); Phosphorus 4.7 mg/dL (2.5-4.9); Potassium 3.4 mmol/L (3.5-5.1); Protein, Total 5.6 g/dL (6.4-8.2); Sodium Level 144 mmol/L (136-145)
[2024-07-19 08:30] LABS: Anisocytosis 2+; Blast 2 % (0-0); Eosinophil 4 % (0-5); Lymphocyte 8 % (19-41); Metamyelocyte 8 % (0-1); Myelocyte 2 % (0-0); Neutrophil-Band 10 % (0-5); Neutrophil-Segmented 66 % (47-70); Nucleated Red Bld Cells,Manual 3 % (0-5); Total Cells Counted 100 (MANUAL DIFF)
[2024-07-19 08:31] LABS: Platelet Estimate MKD INC (ADEQ)
[2024-07-19 08:32] LABS: Absolute Neutrophil Count 127.2 X10^3/uL (2.0-7.7)
[2024-07-19 08:37] VITALS: O2SAT 94
[2024-07-19 09:20] VITALS: BP 112/65; PULSE 106; RESP 18; TEMP 36.4; O2SAT 98
[2024-07-19] MEDS: Enoxaparin 30 MG/0.3 ML Syringe SC (09:21)
[2024-07-19] MEDS: Multivitamins,Therapeutic Tablet 1 TABLET PO (09:21)
--- NOTE | 2024-07-19 09:22 | PN.HOSP_ITS ---
Reason for Visit Reason for Visit: Diagnoses Elevated white blood cell count, unspecified (07/18/24) Thrombocytosis, unspecified (07/18/24) Acute kidney failure, unspecified (07/18/24) Benign prostatic hyperplasia with lower urinary tract symptoms (07/18/24) Weakness (07/18/24) Other fatigue (07/18/24) Personal history of other specified conditions (07/18/24) Subjective Subjective Feeling tired. Objective Data Objective Data Vital Signs: Vital Signs Temp Pulse Resp BP Pulse Ox O2 Del Method 36.4 C L 106 H 18 112/65 98 Room Air 07/19/24 09:20 07/19/24 09:20 07/19/24 09:20 07/19/24 09:20 07/19/24 09:20 07/19/24 09:20 Oxygen Delivery Method Room Air Weight: 73 kg Body Mass Index (BMI) 24.5 Intake & Output: Intake and Output for Last 24 Hours 07/17/24 07/18/24 07/19/24 23:59 23:59 23:59 Intake Total 1500 / 1500 50 / 50 Output Total 1850 / 1850 Balance 1500 / 650 -1800 / -1800 Lab / Micro Data 07/19/24 06:22 07/19/24 06:22 Labs: Laboratory Results - last 24 hr 07/18/24 17:55: Troponin I High Sens 18, Urine Color Yellow, Urine Clarity Sl. Cloudy, Urine pH 6.0, Ur Specific [place] 1.010, Urine Protein 30 H, Urine Glucose (UA) Normal, Urine Ketones Negative, Urine Occult Blood 250 H, Urine Nitrite Negative, Urine Bilirubin Negative, Urine Urobilinogen Normal, Ur Leukocyte Esterase 500 H, Urine RBC 5-10 SEEN, Urine WBC 25-50 SEEN, Ur Squamous Epith Cells 0-5 SEEN, Urine Bacteria 3+, Hyaline Casts 0-5 SEEN, Urine Mucus 0 SEEN 07/18/24 18:37: Lactic Acid 1.7 07/19/24 06:22: WBC 167.4 H*, RBC 4.44 L, Hgb 9.3 L, Hct 34.7 L, MCV 78.2 L, MCH 20.9 L, MCHC 26.8 L, RDW Std Deviation 62.5 H, RDW Coeff of Isidoro 24.2 H, Plt Count 713 H, MPV 11.1, Neut % (Auto) Not Reportable, Absolute Neuts (auto) 127.2 H, Absolute Lymphs (auto) 13.40 H, Total Counted 100, Neutrophils % (Manual) 66, Band Neutrophils % 10 H, Lymphocytes % (Manual) 8 L, Eosinophils % (Manual) 4, M etamyelocytes % 8 H, Myelocytes % 2 H, Blast Cells % 2 H*, Nucleated RBCs/100 WBC 3, Diff Path Review March, Platelet Estimate MKD INC, Anisocytosis 2+, Sodium 144, Potassium 3.4 L, Chloride 116 H, Carbon Dioxide 19.0 L, Anion Gap 9, BUN 55 H, Creatinine 2.49 H, Estim Creat Clear Calc 19.84, Est GFR (MDRD) Af Amer 32 L, Est GFR (MDRD) Non-Af 26 L, BUN/Creatinine Ratio 22.1 H, Glucose 109 H, Calcium 8.6, Phosphorus 4.7, Magnesium 2.0, Total Bilirubin 1.30 H, AST 22, ALT 22, Alkaline Phosphatase 307 H, Total Protein 5.6 L, Albumin 2.7 L, Globulin 2.9, Albumin/Globulin Ratio 0.9, TSH 1.340 Micro: Microbiology 07/18/24 17:55 Mucosa - Nasopharyngeal SARS-CoV-2, Influenza & RSV (PCR) - Final Radiography Diagnostic Testing: Radiology Impression Chest X-Ray 07/18/24 18:28 IMPRESSION: Small left pleural effusion. Left rib fractures of uncertain age. Electronically Signed: Rico Davis MD at 18:53 EDT Reading Location ID and State: [facility] / [place] , Service support , Physical Exam Const alert and no apparent distress HEENT head/scalp atraumatic and moist oral mucous membranes Resp normal respiratory effort, no retractions, no use of accessory muscles and clear to auscultation bilaterally Cardio regular rate, regular rhythm, S1 normal heart sound and S2 normal heart sound GI normal to inspection, nondistended, normoactive bowel sounds, soft to palpation, non-tender and non-distended Neuro Sensorium / Orientation: awake and alert Assessment & Plan Assessment/Plan (1) Leukocytosis: QUALIFIERS: Leukocytosis type: unspecified Qualified Code(s): D 72.829 - Elevated white blood cell count, unspecified (2) Thrombocytosis: (3) FARIDA (acute kidney injury): (4) BPH (benign prostatic hypertrophy): QUALIFIERS: Lower urinary tract symptom detail: unspecified Lower urinary tract symptom presence: symptoms present Qualified Code(s): N40.1 - Benign prostatic hyperplasia with lower urinary tract symptoms (5) History of urinary retention: (6) Generalized weakness: (7) Fatigue: QUALIFIERS: Fatigue type: unspecified Qualified Code(s): R53.83 - Other fatigue PLAN: Plan Leukocytosis * Seen by oncology and concerning that this could be CML. Recommending FISH panel and flow cytometry. Patient to [facility] in 7 to 10 days. Thrombocytosis * Unclear etiology * Hematology on consult FARIDA * I suspect more prerenal than anything. * Improved. * On IV fluids Abnormal urinalysis * Unclear of actual true infection. On ceftriaxone. Urine culture thus far showing mixed gram-positive organisms. Debility * PT OT evaluate and treat VTE prophylaxis with enoxaparin Discussed with family at bedside. Charges/Coding Visit Charges Inpatient E&M: 43949 Subs Hosp L2
[2024-07-19] MEDS: 0.9% Normal Saline (1000mL) 1,000 ML 70 ML IV (11:20)
--- NOTE | 2024-07-19 13:10 | CON.PCM.ON_ITS ---
Assessment & Plan Assessment/Plan (1) Leukocytosis: Status: Acute Code(s): D72.829 - Elevated white blood cell count, unspecified Qualifiers: Leukocytosis type: unspecified Qualified Code(s): D72.829 - Elevated white blood cell count, unspecified Plan: Severe, neutrophilic. CML is high on the list of differentials given presentation with only moderate anemia, elevated platelet count, and blast estimated at 2%. Although the most recent CBC available for review is from > 1 yr ago, ANC was modestly elevated at that time in the absence of infection. Peripheral blood smear reviewed by pathology, Dr. Harrell, and myself. Request uric acid level. Request CML FISH panel and flow cytometry- these studies will return results in approx 7-10 business days from [facility]. Patient may follow up with [facility] in 7-10 days to review results. Patient and family are counseled on infection control and fall risk reduction practices to follow at home when discharged. (2) Thrombocytosis: Status: Acute Code(s): D75.839 - Thrombocytosis, unspecified (3) Anemia: Status: Acute Code(s): D64.9 - Anemia, unspecified Plan: Moderate and normocytic, upon presentation yesterday Hgb 10.4. today 9.3 (decrease attributable to hemodilution from IV hydration) Case was discussed with Dr. Harrell, who is in agreement with the aforementioned plan. HPI Consult Data Date of Service:: 07/19/24 PCP / Referring Provider: Tio Solano MD Attending: Dr. Wojciech Wheeler DO Chief Complaint Chief Complaint: leukocytosis History of Present Illness History of Present Illness: Mr. Olivia is a 89 yr old gentleman with a PMH for hypertension, syncope, and BPH, who developed generalized weakness and fatigue July 2024. Lab assessment ordered by his pcp on 07/18/24 to address these complaints revealed a WBC count 192.6 (no differential was performed), Hgb 10.4, and plt 849K. He was instructed to seek immediate medical attention at [facility] ED and was subsequently admitted for critical leukocytosis and management of FARIDA. Advanced Directives Power of [employer]er: Yes Living Will: No [facility] Medical History (Updated 07/19/24 @ 14:02 by Chloé Rosario MAGAZINE SUPERVISOR, MAGAZINE SUPERVISOR-C) Anemia Bilateral carpal tunnel syndrome Urinary retention Bilateral inguinal hernia Hemorrhoids Arthritis Left inguinal hernia BPH (benign prostatic hypertrophy) Dehydration Sinus tachycardia Orthostasis Syncope Hypertension Home Medications ?Medication ?Instructions ?Recorded ?Last Taken ?Type multivitamin 1 cap PO DAILY supplement 03/20/20 07/18/24 History Allergy/AdvReac Type Severity Reaction Status Date / Time tamsulosin (From Flomax) AdvReac Mild dizzy/faint Verified 07/18/24 17:25 ing Family History Father Hypertension Surgical History History of left inguinal hernia repair (~03/2020) History of laparoscopic cholecystectomy Social History Smoking Status: Former smoker alcohol intake: never substance use type: does not use Vital Signs Temperature 97.6 F L 07/19/24 09:20 Temperature Source Oral 07/19/24 09:20 Pulse Rate 106 H 07/19/24 09:20 Pulse Strength Weak (1+) 07/18/24 22:00 Respiratory Rate 18 07/19/24 09:20 Respiratory Effort Normal, Non-Labored 07/19/24 08:10 Respiratory Depth Normal 07/19/24 08:10 Respiratory Pattern Normal 07/19/24 08:10 Blood Pressure 112/65 07/19/24 09:20 Blood Pressure Mean 80 07/19/24 09:20 Blood Pressure Source Monitor 07/19/24 09:20 Blood Pressure Position Sitting 07/19/24 09:20 Blood Pressure Location Right Arm 07/19/24 09:20 Pulse Ox 98 07/19/24 09:20 Oxygen Delivery Method Room Air 07/19/24 09:20 Laboratory Results - last 24 hr 07/18/24 17:55: Troponin I High Sens 18, Urine Color Yellow, Urine Clarity Sl. Cloudy, Urine pH 6.0, Ur Specific [place] 1.010, Urine Protein 30 H, Urine Glucose (UA) Normal, Urine Ketones Negative, Urine Occult Blood 250 H, Urine Nitrite Negative, Urine Bilirubin Negative, Urine Urobilinogen Normal, Ur Leukocyte Esterase 500 H, Urine RBC 5-10 SEEN, Urine WBC 25-50 SEEN, Ur Squamous Epith Cells 0-5 SEEN, Urine Bacteria 3+, Hyaline Casts 0-5 SEEN, Urine Mucus 0 SEEN 07/18/24 18:37: Lactic Acid 1.7 07/19/24 06:22: WBC 167.4 H*, RBC 4.44 L, Hgb 9.3 L, Hct 34.7 L, MCV 78.2 L, MCH 20.9 L, MCHC 26.8 L, RDW Std Deviation 62.5 H, RDW Coeff of Isidoro 24.2 H, Plt Count 713 H, MPV 11.1, Neut % (Auto) Not Reportable, Absolute Neuts (auto) 127.2 H, Absolute Lymphs (auto) 13.40 H, Total Counted 100, Neutrophils % (Manual) 66, Band Neutrophils % 10 H, Lymphocytes % (Manual) 8 L, Eosinophils % (Manual) 4, Metamyelocytes % 8 H, Myelocytes % 2 H, Blast Cells % 2 H*, Nucleated RBCs/100 WBC 3, Diff Path Review March, Platelet Estimate MKD INC, Anisocytosis 2+, Sodium 144, Potassium 3.4 L, Chloride 116 H, Carbon Dioxide 19.0 L, Anion Gap 9, BUN 55 H, Creatinine 2.49 H, Estim Creat Clear Calc 19.84, Est GFR (MDRD) Af Amer 32 L, Est GFR (MDRD) Non-Af 26 L, BUN/Creatinine Ratio 22.1 H, Glucose 109 H, Calcium 8.6, Phosphorus 4.7, Magnesium 2.0, Total Bilirubin 1.30 H, AST 22, ALT 22, Alkaline Phosphatase 307 H, Total Protein 5.6 L, Albumin 2.7 L, Globulin 2.9, Albumin/Globulin Ratio 0.9, TSH 1.340 Microbiology 07/18/24 17:55 Mucosa - Nasopharyngeal SARS-CoV-2, Influenza & RSV (PCR) - Final Diagnostic Data Chest X-Ray 07/18/24 18:28 IMPRESSION: Small left pleural effusion. Left rib fractures of uncertain age. Electronically Signed: Rico Davis MD at 18:53 EDT ,
[2024-07-19 14:16] LABS: Uric Acid 13.9 mg/dL (3.5-7.2)
[2024-07-19 15:20] VITALS: BP 111/56; PULSE 100; RESP 18; TEMP 37.1; O2SAT 95
--- NOTE | 2024-07-19 15:20 | CASEMGMT ---
JUAN MORROW Assessment Face to Face with patient for initial transition planning/care coordination assessment. RN CM introduced self and role at [facility], pt voices understanding. Pt is A&Ox4 and is resting comfortably in bed and is calm. Pt daughter at bedside. Care providers, pharmacy, and demographics verified. Admitting dx: Leukocytosis LACE Strata: 1 PCP: Tio Solano Specialists: Urologist through [facility] Preferred Pharmacy: [facility] Insurance: D[employer] [facility] Prescription Benefit: Yes LNOK: Jose Olivia (Son), Rosa Maciel (Magda) Living Arrangements: Pt lives with his daughter Rosa in a single story home with two steps to enter ADLs/IADLs: Ind Transportation: Self, Daughter, Family DME: BP Monitor. Pulse Ox. Denies further needs HHC/SNF: Denies Hx or needs Pt?s goal: Home Plan: Home with pt daughter. Pt daughter states that she is a nurse and will be able to help care for the pt at home. Pt states that he feels safe with this plan and denies the need for HHC, OP Tx, SNF, pt Link, or CCN. However, PT is pending and pt current 6-click is 18. Pt also has a [place] but anticipates this being taken out prior to DC. CM to follow. Vladislav Palacios RN, CM
[2024-07-19] MEDS: Potassium Chloride Oral Tablet 20 MEQ 40 MEQ PO (15:36)
[2024-07-19 21:20] VITALS: BP 117/55; PULSE 102; RESP 16; TEMP 37.3; O2SAT 94
[2024-07-20] MEDS: 0.9% Normal Saline (1000mL) 1,000 ML 70 ML IV (01:26)
[2024-07-20 03:30] VITALS: BP 117/61; PULSE 100; RESP 16; TEMP 36.9; O2SAT 94
[2024-07-20 04:11] VITALS: BMI 25.8
[2024-07-20 06:23] LABS: Hematocrit 36.6 % (40-54); Mean Corp Hgb Conc 27.3 g/dL (32-36); Mean Corpuscular Hgb 21.6 pg (27.0-32.0); Mean Corpuscular Volume 79.2 fL (80-94); Mean Platelet Vol. 10.6 fl (6.2-12.0); POSITIVE COUNT YES; POSITIVE DIFFERENTIAL YES; POSITIVE MORPHOLOGY YES; Platelet Count 708 K/mm3 (150-450); RBC Distribution Width CV 24.7 % (11.6-14.6); RBC Distribution Width SD 65.3 fl (35.1-43.9); Red Blood Count 4.62 M/mm3 (4.6-6.2)
[2024-07-20 06:24] LABS: Differential Indicated MANUAL DIFF; White Blood Count 190.1 K/mm3 (4.4-11.0)
[2024-07-20 06:45] LABS: ALB/GLOB Ratio 0.9 RATIO (0.9-2.4); AST(SGOT) 29 U/L (15-37); Alanine Aminotransfer ALT/SGPT 23 U/L (16-61); Albumin, Serum 2.8 g/dL (3.2-5.0); Alkaline Phosphatase 344 U/L (45-117); Anion Gap 7 (5-15); BUN 43 mg/dL (7-18); BUN/Creat Ratio 21.9 RATIO (10-20); Calcium,Total 8.5 mg/dL (8.5-10.1); Chloride 116 mmol/L (98-107); Creatinine, Serum 1.96 mg/dL (0.70-1.30); EST Glomerular Filtration Rate 35 mL/min (>60); Est Glom Filt Rate - Afr Amer 42 mL/min (>60); Glucose 139 mg/dL (74-106); Magnesium 1.8 mg/dL (1.6-2.6); Phosphorus 3.5 mg/dL (2.5-4.9); Potassium 3.8 mmol/L (3.5-5.1); Protein, Total 5.8 g/dL (6.4-8.2); Sodium Level 143 mmol/L (136-145)
[2024-07-20 07:43] VITALS: O2SAT 93
[2024-07-20 08:00] VITALS: BP 124/56; PULSE 110; RESP 18; TEMP 36.6; O2SAT 94
[2024-07-20] MEDS: Enoxaparin 30 MG/0.3 ML Syringe SC (08:30)
[2024-07-20] MEDS: Multivitamins,Therapeutic Tablet 1 TABLET PO (08:30)
[2024-07-20 09:03] LABS: Blast 2 % (0-0); Eosinophil 2 % (0-5); Lymphocyte 10 % (19-41); Metamyelocyte 9 % (0-1); Monocyte 5 % (0-10); Myelocyte 4 % (0-0); Neutrophil-Band 5 % (0-5); Neutrophil-Segmented 62 % (47-70); Nucleated Red Bld Cells,Manual 4 % (0-5); Promyelocyte 1 % (0-0); Total Cells Counted 100 (MANUAL DIFF)
[2024-07-20 09:04] LABS: Anisocytosis 2+; Platelet Estimate MKD INC (ADEQ)
[2024-07-20 09:05] LABS: Absolute Neutrophil Count 127.4 X10^3/uL (2.0-7.7)
[2024-07-20 09:05] LABS: Pathologist Review Reviewed
[2024-07-20] MEDS: Ceftriaxone 1 GM/50 ML BAG IV (10:31)
--- NOTE | 2024-07-20 13:54 | DS.PCM_ITS ---
Providers Date of Admission: 07/18/24 Primary Care Physician: Tio Solano MD Consultations 07/18/24 21:23 Consult: Oncology/Hematology Routine Consulting Provider: *[facility] ([facility]) Reason for Consult: Criticial Leukocytosis of 192K present on admisssion. EMERGENT Consult: No MD Notified: Yes Date Notified: 07/19/24 Time Notified: 06:42 Method of Notification: Text Reason For Visit: CRIICAL LEUKOCYTOSIS OF 192K PRESENT ON Diagnosis Discharge Diagnosis (1) Leukocytosis: Status: Acute Code(s): D72.829 - Elevated white blood cell count, unspecified Qualifiers: Leukocytosis type: unspecified Qualified Code(s): D72.829 - Elevated white blood cell count, unspecified (2) Thrombocytosis: Status: Acute Code(s): D75.839 - Thrombocytosis, unspecified (3) Anemia: Status: Acute Code(s): D64.9 - Anemia, unspecified Plan Leukocytosis * Seen by oncology and concerning that this could be CML. Recommending FISH panel and flow cytometry. Patient to follow-up with [facility] in 7 to 10 days. * Has been started on allopurinol for risk of tumor lysis syndrome Thrombocytosis * Unclear etiology * Hematology on consult FARIDA * Resolved. I suspect prerenal. Abnormal urinalysis * Unclear of actual true infection. On ceftriaxone. Urine culture thus far showing mixed gram-positive organisms. Debility * PT OT evaluate and treat VTE prophylaxis with enoxaparin Discussed with family at bedside. Discharge home. Medications at Discharge Home Medications multivitamin 1 cap PO DAILY supplement 03/20/20 allopurinol 300 mg tablet 300 mg PO DAILYCM #30 tabs 07/20/24 Hospital Course Summary of Care Provided Minutes Spent on Discharge: 35 Hospital Course: Patient presents with weakness. Patient with profound leukocytosis. Also had some acute kidney injury but that that is since improved. 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 Patient was seen in the hospital by oncology and patient will follow up. Concern is for CML. For risk of tumor lysis syndrome, he has been started on empiric allopurinol. Did discuss with the patient's daughter about its indication. Physical Exam Const Constitutional Narrative: up in chair. JENA. afebrile. nontoxic. Weight / BMI Weight Weight: 77.1 kg Body Mass Index (BMI) 25.8 ABG / Lab / Microbiology Data 07/20/24 06:12 07/20/24 06:12 Laboratory: Laboratory Results - last 24 hr 07/19/24 06:22: Diff Path Review Reviewed, Uric Acid 13.9 H 07/20/24 06:12: WBC 190.1 H*, RBC 4.62, Hgb 10.0 L, Hct 36.6 L, MCV 79.2 L, MCH 21.6 L, MCHC 27.3 L, RDW Std Deviation 65.3 H, RDW Coeff of Isidoro 24.7 H, Plt Count 708 H, MPV 10.6, Neut % (Auto) Not Reportable, Absolute Neuts (auto) 127.4 H, Absolute Lymphs (auto) 19.00 H, Total Counted 100, Neutrophils % (Manual) 62, Band Neutrophils % 5, Lymphocytes % (Manual) 10 L, Monocytes % (Manual) 5, Eosinophils % (Manual) 2, Metamyelocytes % 9 H, Myelocytes % 4 H, Promyelocytes % 1 H, Blast Cells % 2 H*, Nucleated RBCs/100 WBC 4, Diff Path Review May foll, Platelet Estimate MKD INC, Anisocytosis 2+, Sodium 143, Potassium 3.8, Chloride 116 H, Carbon Dioxide 20.0 L, Anion Gap 7, BUN 43 H, Creatinine 1.96 H, Estim Creat Clear Calc 25.20, Est GFR (MDRD) Af Amer 42 L, Est GFR (MDRD) Non-Af 35 L, BUN/Creatinine Ratio 21.9 H, Glucose 139 H, Calcium 8.5, Phosphorus 3.5, Magnesium 1.8, Total Bilirubin 1.10 H, AST 29, ALT 23, Alkaline Phosphatase 344 H, Total Protein 5.8 L, Albumin 2.8 L, Globulin 3.0, Albumin/Globulin Ratio 0.9 Microbiology: Microbiology 07/18/24 17:55 Mucosa - Nasopharyngeal SARS-CoV-2, Influenza & RSV (PCR) - Final D/C Instructions Discharge Diet: No restrictions Meaningful Use Info Meaningful Use Meaningful Use Diagnoses (Choose all that apply): None applicable Ischemic Stroke Statin Dosing Therapy Reference: STATIN DOSE THERAPY REFERENCE: * Patients > 75 years receive moderate or high dose statin therapy. * Patients 75 years or YOUNGER should receive HIGH intensity statin dose unless contraindicated. You will be required to document reason for non-treatment if statin daily dose does not meet guidelines. HIGH DOSE STATIN THERAPY DAILY Atorvastatin > than or = to 40 mg Rosuvastatin > than or = to 20 mg Amlodipine + Atorvastatin > than or = to 2.5/40 mg Ezetimibe + Simvastatin 10/80 mg Simvastatin 80mg Discharge Plan Admission Admit Date/Time: 07/18/24 20:21 Primary Reason for Your Visit: leukocytosis. Attending Provider: Wojciech Wheeler Primary Care Provider: Tio Solano Consulting Providers: Jesse Duran; Cristo Rousseau; Daisy Harrell; Ac Carmona; Luís Foster; Dayne Wagner; Lowell Kruger; Clhoé Rosario NP; Jesse Wilson Discharge Orders/Prescriptions Prescriptions: New allopurinol 300 mg Tablet 300 mg PO DAILYCM Qty: 30 0RF Continued multivitamin Capsule 1 cap PO DAILY Referrals / Follow Up: *[facility] ([facility]) [Provider Group] - Within 1 Week Tio Solano MD [Primary Care Provider] - Within 2 Weeks Disposition Disposition (needs filled in before D/C Order can be placed): Home, Self Care Charges/Coding Visit Charges Inpatient E&M: 97767 Disch Hosp >30min
[2024-07-20] MEDS: Allopurinol 300 MG Tablet PO (14:06)
--- NOTE | 2024-07-20 14:29 | CASEMGMT ---
RN CM into pt room, pt has dc order in. Pt denies any homegoing needs. Pt dtr is going to care for pt. She is aware that if they change their mind regarding HHC to notify PCP. Pt and dtr deny any questions.
[2024-07-20 14:31] LABS: Pathologist Review Reviewed
[2024-07-20 14:48] VITALS: BP 114/63; PULSE 104; RESP 16; TEMP 36.9; O2SAT 96
--- NOTE | 2024-07-20 15:34 | PHA.DC.MR.R ---
Pharmacy [place] Med Reconciliation Pharmacy Service has performed discharge medication reconciliation for this patient. Medication education papers prepared, patient discharged when counseling was attempted. Medications reviewed. The patient's discharge medication list was reviewed for discrepancies and discrepancies were resolved. Medications at Discharge Home Medications multivitamin 1 cap PO DAILY supplement 03/20/20 allopurinol 300 mg tablet 300 mg PO DAILYCM #30 tabs 07/20/24
== END 2024-07-20 14:50 | disposition home or self-care (01) | DRG 841 ==
LOC: ED 19:34 → PCU 21:59
PROVIDERS: Nurse Practitioner Family; Admitting Provider Internal Medicine; Emergency Provider Emergency Medicine; PCP Family Medicine
DX: C92.10 Chronic myeloid leukemia, BCR/ABL-positive, not having achieved remission (principal); N17.9 Acute kidney failure, unspecified; N18.30 Chronic kidney disease, stage 3 unspecified; D64.9 Anemia, unspecified; I12.9 Hypertensive chronic kidney disease with stage 1 through stage 4 chronic kidney disease, or unspecified chronic kidney disease; E86.0 Dehydration; D75.839 Thrombocytosis, unspecified; N40.1 Benign prostatic hyperplasia with lower urinary tract symptoms; R33.8 Other retention of urine; R53.83 Other fatigue; R53.81 Other malaise; R53.1 Weakness; Z87.891 Personal history of nicotine dependence; Z86.16 Personal history of COVID-19
CPT/HCPCS: 36415; 71045; 80053; 81001; 83605; 83735; 84100; 84443; 84484; 84550; 85025; 85027; 87631; 93005; 94668; 97162; 97166; 99285; J7030; J7040; A4216

== ENCOUNTER → 2024-07-18 | Outpatient (CLI) | payer MEDICARE, SELFPAY ==
[2024-07-18 15:01] LABS: Hematocrit 40.6 % (40-54); Hemoglobin 10.4 g/dL (13.0-16.5); Mean Corp Hgb Conc 25.6 g/dL (32-36); Mean Corpuscular Hgb 20.7 pg (27.0-32.0); Mean Corpuscular Volume 80.7 fL (80-94); Mean Platelet Vol. 11.5 fl (6.2-12.0); POSITIVE COUNT YES; POSITIVE MORPHOLOGY YES; RBC Distribution Width CV 24.6 % (11.6-14.6); RBC Distribution Width SD 66.5 fl (35.1-43.9); Red Blood Count 5.03 M/mm3 (4.6-6.2)
[2024-07-18 15:17] LABS: Platelet Count 849 K/mm3 (150-450); Scan Indicated on CBC? Y/N YES- FLAGS NOTED; White Blood Count 192.6 K/mm3 (4.4-11.0)
[2024-07-18 15:47] LABS: ALB/GLOB Ratio 0.9 RATIO (0.9-2.4); AST(SGOT) 31 U/L (15-37); Alanine Aminotransfer ALT/SGPT 31 U/L (16-61); Albumin, Serum 3.2 g/dL (3.2-5.0); Alkaline Phosphatase 400 U/L (45-117); Anion Gap 11 (5-15); BUN 61 mg/dL (7-18); BUN/Creat Ratio 17.6 RATIO (10-20); Calcium,Total 9.3 mg/dL (8.5-10.1); Chloride 108 mmol/L (98-107); Creatinine, Serum 3.47 mg/dL (0.70-1.30); EST Glomerular Filtration Rate 18 mL/min (>60); Est Glom Filt Rate - Afr Amer 22 mL/min (>60); Globulin 3.4 g/dL (2.2-4.2); Glucose 111 mg/dL (74-106); Potassium 3.7 mmol/L (3.5-5.1); Protein, Total 6.6 g/dL (6.4-8.2); Sodium Level 139 mmol/L (136-145)
[2024-07-18 16:47] LABS: Differential Comment SCANNED
[2024-07-20 09:07] LABS: Pathologist Review Reviewed
== END | disposition home or self-care (01) ==
LOC: MFPLAB 12:22
PROVIDERS: PCP Family Medicine; Visit Provider Family Medicine
DX: R53.83 Other fatigue (principal); R63.4 Abnormal weight loss
CPT/HCPCS: 36415; 80053; 84443; 85027

== ENCOUNTER → 2024-07-27 | Outpatient (CLI) | payer MEDICARE, SELFPAY | END | disposition home or self-care (01) | LOC: MFPLAB 13:44 | PROVIDERS: PCP Family Medicine; Visit Provider Family Medicine | DX: N39.0 Urinary tract infection, site not specified (principal) | CPT/HCPCS: 87086 ==

== ENCOUNTER 2024-08-07 07:40 | Outpatient (CLI) | payer MEDICARE, SELFPAY ==
[2024-08-07] VITALS (16 sets, daily range): BP systolic 89–126; BP diastolic 43–68; PULSE 79–89; RESP 15–18; TEMP 36.1; O2SAT 96–100; BMI 24.3
--- NOTE | 2024-08-07 | BMB_PTH ---
PATHOLOGY RESULTS PATIENT: BRAD OCASIO LOC: [place] U#:[id number] AGE/SX: 89/M ROOM: RE08/07/[address]: Dr. Daisy Harrell MD : 1935 BED: DIS: 08/07/2024 SPEC #: [id number] RECD: 08/07/24 10:30 STATUS: SHARA RELamar #: [id number] FREDY: 08/07/24 00:[address]: Daisy Harrell DEPT: BONE MARROW RECD BY: Virgil Grijalva ENTERED: 08/07/24 10:30 SP TYPE: BMB OTHR DR: MD Rosa Soriano, SUPERVISOR [employer]-C Tissues: Bone marrow, NOS Bone marrow, NOS Bone marrow, NOS Procedures: Decalcification bone/plaque Bone Marrow Aspiration Bone Marrow Core Biopsy Iron Stain Bone Marrow HEADER OPERATION: CT guided bone marrow biopsy/aspiration PRE-OP DIAGNOSIS: Increased WBC TISSUE SUBMITTED: A - Core, B - Clot, C - Smears, and send outs (flow, cytogenetics) BONE MARROW DIAGNOSIS Bone marrow core, clot and aspirate smears: 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 See bone marrow study and comment. SJ/mr 08/09/2024 COMMENT A. Immunohistochemistry ([id number]) supports the above diagnosis and monoclonal B- cells (CLL/SLL phenotype). Lymphocytes comprise about 5-10 % of the total nucleated cell population. Increased number of blasts are not seen. IHC is negative for metastatic carcinoma. Flow cytometry studies [facility] show involvement by CD5+, CD20+, CD22- clonal B-cell populations, 2 clones present, together <5000/ul, 1% of the leukocytes, CLL/SLL phenotype. Complete report is viewable in patient's EMR. Cytogenetics and FISH studies from [facility] are pending. Correlation with clinical findings and appropriate follow up are necessary. Case has been reviewed in consultation with Dr. Wesley who concurs with the above diagnosis. IDC:AM BONE MARROW STUDY Slides are reviewed. CBC DATE: 08/07/2024 WBC 161.1K; RBC 4.45; HGB 9.4; HCT 35.4; MCV 79.6; RDW 26.5; PLTS 468,000 SEGS 72%; BANDS 14%, META 3%, MYELO 1%, PROMYELOCYTE 2%, LYMPHS 8%; MONOS 0%; EOS 0%; BASOS 0%, NRBC 5 PERIPHERAL SMEAR: Submitted. RBC: Microcytic anemia. NRBC's are noted. Anisocytosis 2+, tear drops 1+, microcyte 1+, polychromasia 1 +, dysmorphic NRBC's are also noted. WBC: Neutrophilic leukemoid reaction. Marked neutrophilic left shift. Immature cells consistent with blasts are also noted. The WBC count is compatible with as reported above. PLTS: Increased. Giant platelets are also noted. BONE MARROW ASPIRATE DIFFERENTIAL: Not performed. ASPIRATE FINDINGS: Site: Not specified Comment: Smears entirely consists of peripheral blood. CORE BIOPSY FINDINGS: Site: Not specified Adequacy: Adequate, core biopsy also shows crushed artifacts. Cellularity: 90%. M/E ratio: within normal limits Megakaryocytes: Increased in number and dysplastic megakaryocytes are noted. Bony trabeculae: Unremarkable. Granulomas: Absent. Lymphoid aggregate: Present. Atypical infiltrate: Present. Comment: Immunohistochemistry [id number] show focal involvement by monoclonal B-cells (SLL/CLL type) Lymphocytes comprise about 5-10 % of the total nucleated cell population. Increased number of blasts are not seen. IHC is negative for metastatic carcinoma. ASPIRATE CLOT FINDINGS: Site: Not specified Comment: The specimen consists of scant amount of peripheral blood. SPECIAL STAINS WITH MATCHED CONTROLS: Iron: Absent. Reticulin: Increased. PAS: Highlights myeloid cells and megakaryocytes. Trichrome: Collagenous fibrosis is not seen. BONE MARROW GROSS A - Received is a container labeled with the patient's name and designated Bone marrow core. The specimen consists of multiple fragments of blood clot measuring in aggregate 1.8 x 2.0 x 0.1cm. The specimen is totally submitted in one cassette after decalcification. B - Received labeled with the patient's name and designated Bone marrow clot is a specimen that consists of approximately 2.0 ml of bloody fluid that on filtration yields scant blood clot consists of 0.2 x 0.1 x 0.1cm. The specimen is totally submitted in one cassette. C - Also received are 8 unstained slides and 1 peripheral stained slide. The unstained slides are submitted for appropriate staining. Also received are 1 green top tube which are sent to our reference lab for flow, cytogenetics, MDS. /IFEANYI. 08/07/2024 TC:0 CPT: 61444, 14764, 69692 x2, 40610 x4, 44434 ADDENDUM ADDENDUM 08/14/2024 08:45 MDS FISH PANEL REPORT FROM [facility] FISH RESULT: Normal MDS Panel INTERPRETATION: SPECIFIC PROBE REULTS: 5q: Normal 7q: Normal 8q: Normal 20q: Normal Please see complete report in e-chart or EMR ADDENDUM 08/14/2024 15:25 CYTOGENETICS REPORT FROM [facility] CYTOGENETIC RESULT: 46, XY (11) INTERPRETATION: Normal male karyotype was observed in twenty metaphases analyzed. Please see complete report in e-chart or EMR
--- NOTE | 2024-08-07 | IMM_PTH ---
PATHOLOGY RESULTS PATIENT: BRAD OCASIO LOC: [place] U#:[id number] AGE/SX: 89/M ROOM: RE08/07/[address]: Dr. Daisy Harrell MD : 1935 BED: DIS: 08/07/2024 SPEC #: [id number] RECD: 08/08/24 11:44 STATUS: SOUTodd REQ #: [id number] FREDY: 08/07/24 00:[address]: Daisy Harrell DEPT: IMMUNOHISTOCHEMISTRY RECD BY: Rogers Staley ENTERED: 08/08/24 11:45 SP TYPE: IMMUNO OTHR DR: MD Rosa Soriano, HE[employer] MANAGER-C Tissues: Bone marrow of iliac crest Procedures: BCL-2 (add) BCL-6 (add) CD10 (add) CD20 (add) CD23 (add) CD3 (add) CD34 (add) CD45 (add) CD5 (add) CD79A (add) CK8 (add) CYCLIN (add) Pankeratin (initial) PHYSICIAN & [address] [address] SPECIMEN INFORMATION: Tissue Source: A- Bone marrow core Clinical Info: Increased WBC's Specimen Number: [id number] CPT code: 01996,27380l56 METHODOLOGY: Deparaffinized sections of prefer/formalin-fixed tissue or PAP/DQ stained slides are incubated with monoclonal/polyclonal antibodies/oligonucleotide probes. Localization is made via biotin free immunoperoxidase method. Appropriate controls are performed and reacted as expected. Results on target cell population are indicated in the following table: RESULTS: ANTIBODY / CLONE RESULT Block A AE1-3 (AE1/AE3/PCK26) negative CK8 (49kkitK25) negative CD3 (PS1) negative CD5 (SP10) positive CD20 (L26) positive, weak CD45 (RP2/18) positive CD79a (11E3) positive CD10 (56C6) negative CD23 (1B12) positive BCL-2 (bcl-2/100/D5) positive BCL-6 (GX135E/A8) negative Cyclin D1/BCL-1 (SP4) negative CD34 (QBEnd-10) negative These tests were developed and their performance characteristics determined by [facility]. They may not have been cleared or approved by the [place]. Food and Drug Administration. The FDA has determined that such clearance or approval is not necessary. The above immunohistochemical/dualISH markers are ordered and reviewed by the Pathologist. INTERPRETATION: A. Bone marrow core, bone biopsy: Monoclonal B-cell lymphocytosis (SLL/CLL phenotype). Increased number of blasts are not seen. Negative for metastatic carcinoma. Case has been reviewed in consultation with Dr. Wesley who concurs with the above diagnosis. IDC:TALITA Gomez 08/09/2024
[2024-08-07 08:01] LABS: Hematocrit 35.4 % (40-54); Hemoglobin 9.4 g/dL (13.0-16.5); Mean Corp Hgb Conc 26.6 g/dL (32-36); Mean Corpuscular Hgb 21.1 pg (27.0-32.0); Mean Corpuscular Volume 79.6 fL (80-94); POSITIVE COUNT YES; POSITIVE DIFFERENTIAL YES; POSITIVE MORPHOLOGY YES; Platelet Count 468 K/mm3 (150-450); RBC Distribution Width CV 26.5 % (11.6-14.6); RBC Distribution Width SD 70.6 fl (35.1-43.9); Red Blood Count 4.45 M/mm3 (4.6-6.2)
[2024-08-07 08:04] LABS: Differential Indicated MANUAL DIFF
[2024-08-07] MEDS: 0.9% Saline Lock 10 ML Syringe IV (08:33)
[2024-08-07] MEDS: 0.9% Normal Saline (250mL Bag) 250 ML 15 ML IV (08:33)
[2024-08-07 08:37] LABS: Corrected WBC 161.1 K/mm3 (4.4-11.0); Lymphocyte 8 % (19-41); Metamyelocyte 3 % (0-1); Myelocyte 1 % (0-0); Neutrophil-Band 14 % (0-5); Neutrophil-Segmented 72 % (47-70); Nucleated Red Bld Cells,Manual 5 % (0-5); Promyelocyte 2 % (0-0); Total Cells Counted 100 (MANUAL DIFF)
[2024-08-07 08:38] LABS: Anisocytosis 2+; Platelet Estimate SLT INC (ADEQ); Polychromasia 1+
[2024-08-07 08:40] LABS: Absolute Neutrophil Count 138.6 X10^3/uL (2.0-7.7)
[2024-08-07 08:41] LABS: Absolute Lymphocyte Count 12.89 X10^3/uL (0.83-4.51)
[2024-08-07] MEDS: Midazolam 2 MG/2 ML Syringe IV (09:22)
[2024-08-07] MEDS: fentaNYL 100 MCG/2 ML Ampul IV (09:22)
[2024-08-07] MEDS: Lidocaine 2% (20 ml mdv) 20 ML Vial INFILT (09:36)
--- NOTE | 2024-08-07 10:16 | PRO.PCM_ITS ---
Procedure Report Date of Procedure: 08/07/24 Assessment & Plan Assessment/Plan (1) Monoclonal B-cell lymphocytosis: PLAN: PROCEDURE: CT guided bone marrow biopsy and aspiration of the left iliac bone ORDERING PROVIDER: Dr. Harrell INDICATION: Male, 89 years old. Monoclonal B-cell lymphocytosis. PROVIDER: Rosa Eduardo APRN-LORENZO CONSENT: The risks, benefits, and alternatives to the procedure were explained to the patient and family. The specific risk of hemorrhage requiring further treatment or intervention was detailed and accepted. Follow-up instructions were discussed with the patient as well. Written informed consent was obtained. PRE-PROCEDURE SEDATION ASSESSMENT: Current history and physical dictated by referring physician and reviewed. No clinical changes since date of exam. Patient has a Mallampati Score of Class 1 and ASA Class of 3. PROCEDURAL SEDATION PROTOCOL: The Drugs used were: 1 mg Versed, IV, and 25 mcg Fentanyl, IV. The sedation time was: 43 minutes, starting at 9:22 AM and terminated at 10:05 AM. The procedural sedation protocol was independently monitored by the department nurse. RADIATION DOSAGE (Supplied By Facility): CTDIvol = 19.41 mGy, DLP = 641.04 mGy.cm Individualized dose optimization techniques were utilized. TECHNIQUE The patient was brought into the CT suite and placed in the prone position. An appropriate entry site of the right iliac bone was identified using CT guidance. The overlying skin was prepped with chlorhexidine and draped in the usual sterile fashion. 2% lidocaine was administered subcutaneously for local anesthesia. Under CT guidance, a bone marrow biopsy and bone marrow aspirate were attempted. However, no aspirate or core were able to be obtained. The patient tolerated well. The procedure was restarted to biopsy the left iliac bone. While the patient remained prone, an appropriate entry site of the left iliac bone was identified using CT guidance. The overlying skin was prepped with chlorhexidine and draped in usual sterile fashion. 2% lidocaine was administered subcutaneously for local anesthesia. Under CT guidance, a bone marrow biopsy and bone marrow aspirate were performed of the left iliac bone usi ng an 11-gauge bone marrow biopsy kit. Laboratory staff was present to prepare the specimen slides and transport the specimen to the laboratory for analysis. Hemostasis was obtained, and a sterile occlusive dressing was applied. The patient tolerated the procedure well without immediate complications. IMPRESSION: Successful CT guided bone marrow biopsy and aspiration of the left iliac bone as described. Procedural Sedation protocol utilized with independent monitoring by the department nurse. Procedures Radiology Radiology CT Procedures: 98376 Dx bone marrow bx & aspir Multi Select Codes Radiology Radiology CT Procedures: 71210-83 CT guidance parenchymal tissue
[2024-08-07 11:00] LABS: AST(SGOT) 26 U/L (15-37); Alanine Aminotransfer ALT/SGPT 26 U/L (16-61); Albumin, Serum 2.8 g/dL (3.2-5.0); Alkaline Phosphatase 351 U/L (45-117); Anion Gap 6 (5-15); BUN 26 mg/dL (7-18); BUN/Creat Ratio 23.4 RATIO (10-20); Calcium,Total 8.6 mg/dL (8.5-10.1); Chloride 112 mmol/L (98-107); Creatinine, Serum 1.11 mg/dL (0.70-1.30); EST Glomerular Filtration Rate 66 mL/min (>60); Est Glom Filt Rate - Afr Amer 80 mL/min (>60); Globulin 2.8 g/dL (2.2-4.2); Glucose 117 mg/dL (74-106); LDH 430 U/L (87-241); Potassium 3.7 mmol/L (3.5-5.1); Protein, Total 5.6 g/dL (6.4-8.2); Sodium Level 141 mmol/L (136-145); Uric Acid 4.1 mg/dL (3.5-7.2)
[2024-08-08 13:50] LABS: Pathologist Review Reviewed
[2024-09-11 13:28] LABS: Miscellaneous Lab Procedure 2 SEE PATHOLOGY REPORT
== END 2024-08-07 23:59 | disposition home or self-care (01) ==
PROVIDERS: Nurse Practitioner Acute Care; PCP Family Medicine; Referring Provider Internal Medicine Hematology & Oncology; Visit Provider Internal Medicine Hematology & Oncology
DX: D72.829 Elevated white blood cell count, unspecified (principal); D75.839 Thrombocytosis, unspecified; D64.9 Anemia, unspecified; I10 Essential (primary) hypertension; N40.0 Benign prostatic hyperplasia without lower urinary tract symptoms; R53.1 Weakness; R53.83 Other fatigue; Z87.891 Personal history of nicotine dependence
CPT/HCPCS: 38222; 36415; 77012; 80053; 83615; 84550; 85025; 88305; 88311; 88313; 88341; 88342; 99156; 99157; J7050; A4216

== ENCOUNTER → 2024-10-02 | Outpatient (CLI) | payer MEDICARE, SELFPAY ==
[2024-10-02 17:58] LABS: Color, Urine Amber (Yellow); Glucose, Dipstick Normal (Normal); Ketone-Dipstick Negative (Negative); Leukocyte Esterase-Dipstick 500 /ul (Negative); Nitrite-Dipstick Negative (Negative); Occult Blood-Urine 250 /ul (Negative); Protein-Dipstick 100 mg/dl (Negative); Specific Gravity, Urine 1.015 (1.002-1.030); Urine Bilirubin Dipstick Negative (Negative); Urine Clarity Cloudy (Clear); Urine Urobilinogen Normal (Normal)
[2024-10-02 18:06] LABS: Mucous, Urine 0 SEEN /hpf (<or=2+)
[2024-10-02 18:07] LABS: Amorphous Sediment 2+ URATE; Bacteria RARE /hpf (None Seen); Red Blood Cells-Urine 10-25 SEEN /hpf (0-5); Squamous Epithelial Cells - UA 5-10 SEEN /hpf (0-5); White Blood Cells 50-100 SEEN /hpf (0-5)
[2024-10-02 18:08] LABS: Yeast-Urine 1+ /hpf (None Seen)
== END | disposition home or self-care (01) ==
LOC: LABSPEC 15:53
PROVIDERS: PCP Family Medicine; Visit Provider Family Medicine
DX: R30.0 Dysuria (principal)
CPT/HCPCS: 81001; 87086; 87088

== ENCOUNTER 2024-10-10 08:00 | Outpatient (CLI) | payer MEDICARE, SELFPAY | END 2024-10-11 08:00 | disposition home or self-care (01) | PROVIDERS: PCP Family Medicine; Visit Provider Internal Medicine Hematology & Oncology | DX: D64.9 Anemia, unspecified (principal) | CPT/HCPCS: 86850; 86900; 86901; 86920; 86922 ==

== ENCOUNTER → 2024-10-10 | Outpatient (CLI) | payer MEDICARE, SELFPAY | END | disposition home or self-care (01) | LOC: LABSPEC 01-24 15:58 | PROVIDERS: PCP Family Medicine; Visit Provider Nurse Practitioner Family | DX: D64.9 Anemia, unspecified (principal) | CPT/HCPCS: 86850; 86900; 86901; 86920; 86922 ==